=== PATIENT | female | born 1960 | race Caucasian/White ===

== ENCOUNTER 2016-12-18 18:55 | Emergency (ER) | payer OTHER, MEDICARE ==
[~2016-12-18 18:55] MED LIST: ASPIRIN81 M4 PO; ATIVAN1 M1 PO; ATORVASTATIN CA20 M1 PO; ATORVASTATIN CA40 M1 PO; CLONAZEPAM0.5 M2 PO; CLONAZEPAM1 M2 PO; ESCITALOPRAM OX20 MG PO; GABAPENTIN300 M2 PO; LOPRESSOR50 M1 PO; MELATONIN5 M7 PO; METOPROLOL TART25 M1 PO; ONE DAILY MULT1 EAC2 PO; QUETIAPINE FUMA50 M1 PO; SPIRIVA18 MCG INH; VITAMIN B-1100 MG PO; VITAMIN B-121000 MC3 PO
--- NOTE | 2016-12-18 19:17 | ED GENERAL ADULT ---
History of Present Illness General Chief Complaint: ETOH/Drug Related Complaint Stated Complaint: BIBA ETOH DETOX Source: patient, old records, EMS Exam Limitations: intoxication Vital Signs & Intake/Output Vital Signs & Intake/Output Vital Signs Date Time Temp Pulse Resp B/P Pulse O2 O2 Flow FiO2 Ox Delivery Rate 12/188 96.2 101 20 128/78 99 Nasal 2.0L Cannula 12/187 97 Nasal 3.0L Cannula 12/18 1903 94 20 89/53 96 Nasal 3.0L Cannula ED Intake and Output 12/19 0000 12/18 1200 Intake Total Output Total 600 Balance -600 Output, Urine 600 Allergies Coded Allergies: No Known Allergies (06/24/16) Reconcile Medications Aspirin (Aspirin*) 81 MG TAB.CHEW 1 TAB PO DAILY HEART HEALTH Atorvastatin Calcium 40 MG TABLET 1 TAB PO DAILY HYPERLIPIDEMIA Clonazepam 0.5 MG TABLET 1 TAB PO BID ANXIETY (Reported) Cyanocobalamin (Vitamin B-12) 1,000 MCG TABLET 1 TAB PO DAILY MULTIVITAMIN Escitalopram Oxalate 20 MG TABLET 1 TAB PO DAILY MENTAL HEALTH (Reported) Gabapentin 300 MG CAPSULE 2 CAP PO SEE ADMIN CRITERIA UNKNOWN (Reported) 600MG MORNING AND AT LUNCHTIME 900MG AT NIGHT Lorazepam (Ativan) 1 MG TABLET 0.5 TAB PO SEE ADMIN CRITERIA ALCOHOL WITHDRAWL TAKE 0.5 TABLET IN THE EVENING AND 0.5 TABLE AT NIGHT( 06/27/16) pLEASE TAKE 0.5 TABLET ON 06/28/60 THEN STOP Melatonin 5 MG TABLET 1 TAB PO AT BEDTIME INSOMNIA Metoprolol Tartrate (Lopressor) 50 MG TABLET 1 TAB PO BID BLOOD PRESSURE Multivitamin (One Daily Multivitamin) 1 EACH TABLET 1 TAB PO DAILY MULTIVITAMIN Thiamine HCl (Vitamin B-1) 100 MG TABLET 1 TAB PO DAILY VITAMIN SUPPLEMENT Tiotropium [place] (Spiriva) 18 MCG CAP.W.DEV 1 CAP INH DAILY BREATHING PROBLEMS (Reported) Triage Note: PT BIBA FOR ETOH DETOX. PER EMS, PT DRANK 6 NIPS OF VODKA TODAY. MED HX INCLUDES STAGE 4 LUNG CANCER WITH METS TO BRAIN. HX COPD. PT REPORTEDLY VOMITED ONCE PRIOR TO EMS ARRIVAL Triage Nurses Notes Reviewed? yes HPI: Patient daughter called 911 because the patient was intoxicated. Patient denies congestion. Vision that she drank alcohol. Patient denies wanting detox. Patient has known metastatic lung cancer to her brain and the patient states that her right to drink alcohol. Patient denies any suicidal or homicidal ideations. Past History Travel History Traveled to [place] past 21 day No Medical History Any Pertinent Medical History? 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 No Review of Systems Review of Systems Constitutional: Reports: no symptoms. EENTM: Reports: no symptoms. Respiratory: Reports: no symptoms. Cardiovascular: Reports: no symptoms. GI: Reports: no symptoms. Genitourinary: Reports: no symptoms. Musculoskeletal: Reports: no symptoms. Skin: Reports: no symptoms. Neurological/Psychological: Reports: no symptoms. Hematologic/Endocrine: Reports: no symptoms. Immunologic/Allergic: Reports: no symptoms. All Other Systems: Reviewed and Negative Physical Exam Physical Exam General Appearance: well developed/nourished, alert, awake, mild distress, intoxicated Head: atraumatic Eyes: Bilateral: PERRL, EOMI, other (SLUGGISH). Ears, Nose, Throat: normal pharynx, normal ENT inspection Neck: normal inspection, supple, full range of motion Respiratory: normal breath sounds, chest non-tender, no respiratory distress, lungs clear Cardiovascular: regular rate/rhythm, normal peripheral pulses Gastrointestinal: normal bowel sounds, soft, non-tender Back: normal inspection Extremities: normal inspection, normal capillary refill, normal range of motion, no edema Neurologic/Psych: no motor/sensory deficits, awake, alert Lymphatic: no anterior cervical nichol Core Measures ACS in differential dx? No CVA/TIA Diagnosis: No Severe Sepsis Present: No Septic Shock Present: No Progress Differential Diagnoses I considered the following diagnoses in my evaluation of the patient: [Alcohol intoxication] Plan of Care: Orders Procedure Date/time Status Regular Diet 12/19 B Active URINE DRUG SCREEN FOR ER ONLY 12/18 1913 Complete LIPASE 12/18 1913 Complete ETHANOL 12/18 1913 Complete COMPREHENSIVE METABOLIC PANEL 12/18 1913 Complete CBC WITHOUT DIFFERENTIAL 12/18 1913 Complete AMYLASE 12/18 1913 Complete Laboratory Tests 12/18/161954: Urine Opiates Screen < 100.00, Methadone Screen 53, Barbiturate Screen < 60, Ur Phencyclidine Scrn < 6.00, Amphetamines Screen < 100, U Benzodiazepines Scrn 124 , Urine Cocaine Screen < 50, Urine Cannabis Screen < 5.00 12/18/161914: Anion Gap 15, Estimated GFR > 60, BUN/Creatinine Ratio 35.7 H, Glucose 118 H, Calcium 8.9, Total Bilirubin 0.3, AST 24, ALT 29, Alkaline Phosphatase 108, Total Protein 6.4, Albumin 3.8, Globulin 2.6, Albumin/Globulin Ratio 1.5, Amylase 69, Lipase 105, CBC w Diff NO MAN DIFF REQ, RBC 4.49, MCV 83.7, MCH 27.4 , RDW 14.8 H, MPV 7.5, Gran % 58.6, Lymphocytes % 27.2, Monocytes % 8.9, Eosinophils % 4.5, Basophils % 0.8, Absolute Granulocytes 3.6, Absolute Lymphocytes 1.7, Absolute Monocytes 0.5, Absolute Eosinophils 0.3, Absolute Basophils 0, PUBS MCHC 32.7 L, Serum Alcohol 236.0 Initial ED EKG: none Hand-Off Endorsed To: IVETH AGUILAR MD Endorsed Time: 0700 Pending: other ([facility]) Departure Departure Disposition: HOME OR SELF CARE Condition: Stable Clinical Impression Primary Impression: Alcohol intoxication Referrals: PATIENT HAS NO PRIMARY CARE DR (PCP/Family) Additional Instructions: Return if you would like any help to stop drinking or as needed. Departure Forms: Customer Survey General Discharge Information Critical Care Note Critical Care Note Critical Care Time: non-applicable
[2016-12-18 19:24] LABS: ABSOLUTE BASOPHIL COUNT 0 /CUMM (0.0-0.2); ABSOLUTE EOSINOPHIL COUNT 0.3 /CUMM (0.0-0.7); ABSOLUTE GRANULOCYTE CT 3.6 /CUMM (1.4-6.5); ABSOLUTE LYMPH COUNT 1.7 /CUMM (1.2-3.4); ABSOLUTE MONOCYTE COUNT 0.5 /CUMM (0.10-0.60); BASOPHIL % 0.8 % (0.0-2.0); EOSINOPHIL % 4.5 % (0-5); GRANULOCYTE % 58.6 % (42.2-75.2); HEMATOCRIT 37.6 % (37-47); MEAN CORPUSCULAR HGB 27.4 PG (27.0-31.0); MEAN CORPUSCULAR HGB CONC 32.7 G/DL (33.0-37.0); MEAN CORPUSCULAR VOLUME 83.7 FL (81.0-99.0); MEAN PLATELET VOLUME 7.5 FL (7.4-10.4); PLATELET COUNT 250 /CUMM (130-400); RBC DISTRIBUTION WIDTH 14.8 % (11.5-14.5); RED BLOOD CELL CT 4.49 /CUMM (4.20-5.40); WHITE BLOOD CELL COUNT 6.2 /CUMM (4.8-10.8)
[2016-12-19 06:46] VITALS: BP 169/84
== END 2016-12-19 07:25 ==
LOC: ERH 18:55
PROVIDERS: Emergency Medicine
DX: F10.129 Alcohol abuse with intoxication, unspecified (principal)
CPT/HCPCS: 80307; 96361; 96374; G0480; J2405

== ENCOUNTER 2017-02-14 06:28 | Emergency (ER) | payer OTHER, MEDICARE ==
[~2017-02-14] VITALS: Ht 170.2 cm; Wt 74.8 kg
--- NOTE | 2017-02-14 06:31 | ED PSYCHIATRIC COMPLAINT ---
History of Present Illness General Chief Complaint: ETOH/Drug Related Complaint Stated Complaint: LEONOR PT REQUEST ETOH DETOX Source: patient, old records Exam Limitations: no limitations Vital Signs & Intake/Output Vital Signs & Intake/Output Vital Signs Date Time Temp Pulse Resp B/P Pulse O2 O2 Flow FiO2 Ox Delivery Rate 02/14 0847 97.2 88 18 95/68 94 02/14 0706 98.2 106 18 110/70 02/14 0653 98.2 106 20 110/70 97 Room Air 02/14 0636 100 Nasal 2.0L Cannula Allergies Coded Allergies: No Known Allergies (06/24/16) Reconcile Medications Aspirin (Aspirin*) 81 MG TAB.CHEW 1 TAB PO DAILY HEART HEALTH Atorvastatin Calcium 40 MG TABLET 1 TAB PO DAILY HYPERLIPIDEMIA Clonazepam 0.5 MG TABLET 1 TAB PO BID ANXIETY (Reported) Cyanocobalamin (Vitamin B-12) 1,000 MCG TABLET 1 TAB PO DAILY MULTIVITAMIN Escitalopram Oxalate 20 MG TABLET 1 TAB PO DAILY MENTAL HEALTH (Reported) Gabapentin 300 MG CAPSULE 2 CAP PO SEE ADMIN CRITERIA UNKNOWN (Reported) 600MG MORNING AND AT LUNCHTIME 900MG AT NIGHT Lorazepam (Ativan) 1 MG TABLET 0.5 TAB PO SEE ADMIN CRITERIA ALCOHOL WITHDRAWL TAKE 0.5 TABLET IN THE EVENING AND 0.5 TABLE AT NIGHT( 06/27/16) pLEASE TAKE 0.5 TABLET ON 06/28/60 THEN STOP Melatonin 5 MG TABLET 1 TAB PO AT BEDTIME INSOMNIA Metoprolol Tartrate (Lopressor) 50 MG TABLET 1 TAB PO BID BLOOD PRESSURE Multivitamin (One Daily Multivitamin) 1 EACH TABLET 1 TAB PO DAILY MULTIVITAMIN Thiamine HCl (Vitamin B-1) 100 MG TABLET 1 TAB PO DAILY VITAMIN SUPPLEMENT Tiotropium [place] (Spiriva) 18 MCG CAP.W.DEV 1 CAP INH DAILY BREATHING PROBLEMS (Reported) Triage Nurses Notes Reviewed? yes HPI: 56 year old female LEONOR from home requesting alcohol detox. She has a long history of alcohol abuse. She states currently she is drinking about 12-15 minutes per day. Around 6:00 in the morning she wakes up very anxious and waits for the package start open at 8:00. She states that she is a recovering patient from metastatic lung cancer to the brain. She is status post chemotherapy and radiation therapy currently cancer free. She states that she brought herself in for voluntary alcohol detox. Denies call withdrawal seizures or delirium tremens however she was admitted for a 4-5 day stay back in May of previous year. Denies any SI or HI. Denies any substance abuse. She is prescribed Klonopin 1 mg daily. (MEERA NAVARRO MD) Past History Medical History Any Pertinent Medical History? 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 No (MEERA NAVARRO MD) Review of Systems Review of Systems Constitutional: Denies: chills, fever. EENTM: Reports: no symptoms. Respiratory: Denies: cough. Cardiovascular: Denies: chest pain. GI: Denies: abdominal pain. Genitourinary: Reports: no symptoms. Musculoskeletal: Reports: no symptoms. Skin: Reports: no symptoms. Neurological/Psychological: Reports: anxiety, depressed. Hematologic/Endocrine: Denies: bruising, bleeding, polyuria, polydipsia. Immunologic/Allergic: Reports: no symptoms. All Other Systems: Reviewed and Negative (MEERA NAVARRO MD) Physical Exam Physical Exam General Appearance: well developed/nourished, mild distress Head: atraumatic Eyes: Bilateral: PERRL, EOMI. Ears, Nose, Throat: normal pharynx, normal ENT inspection, hearing grossly normal Neck: normal inspection, supple Respiratory: normal breath sounds Cardiovascular: regular rate/rhythm Gastrointestinal: soft, non-tender Extremities: normal range of motion Neurological/Psychiatric: awake, alert Appearance/Memory/Insight: appropriate appearance, neat Behavoir/Eye Contact/Speech: cooperative, normal speech, good eye contact Thoughts/Hallucinations: no apparent hallucination Skin: intact, normal color, warm/dry SAD PERSONS Done? patient not suicidal (MEERA NAVARRO MD) Progress Differential Diagnosis: ALCOHOL ABUSE, ALCOHOL WITHDRAWAL Plan of Care: Orders Procedure Date/time Status Add-on Test (ER Only) 02/14 0845 Active TROPONIN LEVEL 02/14 0722 Complete ETHANOL 02/14 0722 Complete CIWA 03/16 0642 Active URINALYSIS 02/14 642 Complete PARTIAL THROMBOPLASTIN TIME 02/14 642 Complete PROTHROMBIN TIME 02/14 642 Complete MAGNESIUM 02/14 642 Complete LIPASE 02/14 642 Complete COMPREHENSIVE METABOLIC PANEL 02/14 642 Complete CBC WITHOUT DIFFERENTIAL 02/14 642 Complete EKG 02/14 642 Active Laboratory Tests 02/14/17 0722: Anion Gap 10, Estimated GFR > 60, BUN/Creatinine Ratio 37.1 H, Glucose 94, Calcium 9.1, Magnesium 1.6, Total Bilirubin 0.6, AST 20, ALT 37, Alkaline Phosphatase 102, Troponin I < 0.01, Total Protein 6.6, Albumin 3.8, Globulin 2.8 , Albumin/Globulin Ratio 1.4, Lipase 43, PT 11.2, INR 1.07, APTT 38 H, CBC w Diff NO MAN DIFF REQ, RBC 4.54, MCV 83.9, MCH 27.4, RDW 14.6 H, MPV 7.3 L, Gran % 66.5, Lymphocytes % 20.4 L, Monocytes % 8.5, Eosinophils % 4.2, Basophils % 0.4, Absolute Granulocytes 2.8, Absolute Lymphocytes 0.9 L, Absolute Monocytes 0.4, Absolute Eosinophils 0.2, Absolute Basophils 0, PUBS MCHC 32.7 L, Serum Alcohol 48.0 02/14/17 0710: Troponin I Cancelled 02/14/17 06: Urinalysis LIGHT H, Urine Color YEL, Urine Clarity CLDY H, Urine pH 6.0, Ur Specific [place] >= 1.030, Urine Protein 30 H, Urine Ketones NEG, Urine Nitrite NEG, Urine Bilirubin NEG, Urine Urobilinogen 0.2, Ur Leukocyte Esterase SMALL H , Ur Microscopic SEDIMENT EXAMINED, Urine RBC 1-3, Urine WBC 1-3 H, Ur Epithelial Cells MANY H, Urine Bacteria MANY H, Urine Mucus RARE, Urine Hemoglobin TRACE-INTACT, Urine Glucose NEG Initial ED EKG: NSR, T WAVE INVERSIONS V2-V6 Prior EKG: unchanged Hand-Off Endorsed To: JOSE PANIAGUA,ALPHONSO Garcia Endorsed Time: 0700 Pending: labs, other (ciwa scores) (RAMON PANIAGUA,MEERA) Comments: 02/14/2017 9:29:52 AM I have updated Kavita on her test results. She will contact behavioral health regarding an outpatient alcohol detox program. At this point there seems to be no signs of significant alcohol withdrawal. (JOSE PANIAGUA,ALPHONSO Garcia) Departure Departure Condition: Stable Departure Forms: Customer Survey General Discharge Information (RAMON PANIAGUA,MEERA) Departure Disposition: HOME OR SELF CARE Clinical Impression Primary Impression: Alcohol dependence Qualifiers: Substance use status: unspecified alcohol-induced disorder Qualified Code: F10.29 - Alcohol dependence with unspecified alcohol-induced disorder Secondary Impressions: Acute electrocardiogram changes Referrals: [facility] PATIENT HAS NO PRIMARY CARE DR (PCP/Family) Additional Instructions: Follow-up with the [facility] regarding outpatient transition mgr rn detox program. If you do not already have a primary care physician contact the [facility] and arrange for a general medical evaluation as soon as possible. Return if any concerns or sudden worsening. Please note that there might be incidental findings in your evaluation that are unrelated to the current emergency department visit. Please notify your primary care doctor about this emergency department visit in order to obtain and review all of the testing performed so that these incidental findings can be monitored as needed. If you had an x-ray performed, please understand that some fractures may not be seen on the initial set of x-rays. If your symptoms persist you might need a repeat set of x-rays to check for such a fracture. If you had a laceration evaluated, please understand that foreign bodies such as glass or wood may not be visible to the naked eye or on plain x-rays. If the wound becomes red, swollen, increasingly more painful or if there is any drainage from the wound, please have it reevaluated by a physician for the possibility of a retained foreign body. Thank you for choosing the [facility] for your care. It was a pleasure to serve you today. Alphnoso Newton M.D. [facility] (JOSE PANIAGUA,ALPHONSO Garcia)
[2017-02-14 07:39] LABS: ABSOLUTE BASOPHIL COUNT 0 /CUMM (0.0-0.2); ABSOLUTE EOSINOPHIL COUNT 0.2 /CUMM (0.0-0.7); ABSOLUTE GRANULOCYTE CT 2.8 /CUMM (1.4-6.5); ABSOLUTE LYMPH COUNT 0.9 /CUMM (1.2-3.4); ABSOLUTE MONOCYTE COUNT 0.4 /CUMM (0.10-0.60); BASOPHIL % 0.4 % (0.0-2.0); EOSINOPHIL % 4.2 % (0-5); GRANULOCYTE % 66.5 % (42.2-75.2); HEMATOCRIT 38.1 % (37-47); MEAN CORPUSCULAR HGB 27.4 PG (27.0-31.0); MEAN CORPUSCULAR HGB CONC 32.7 G/DL (33.0-37.0); MEAN CORPUSCULAR VOLUME 83.9 FL (81.0-99.0); MEAN PLATELET VOLUME 7.3 FL (7.4-10.4); PLATELET COUNT 301 /CUMM (130-400); RBC DISTRIBUTION WIDTH 14.6 % (11.5-14.5); RED BLOOD CELL CT 4.54 /CUMM (4.20-5.40); WHITE BLOOD CELL COUNT 4.2 /CUMM (4.8-10.8)
[2017-02-14 08:42] LABS: PT 11.2 SEC (9.4-12.5); PTT 38 SEC (25-37)
[2017-02-14 10:04] VITALS: BP 104/85
== END 2017-02-14 10:04 ==
LOC: ERH 06:28
PROVIDERS: Emergency Medicine
DX: F10.20 Alcohol dependence, uncomplicated (principal); R94.31 Abnormal electrocardiogram [ECG] [EKG]; Z79.82 Long term (current) use of aspirin
CPT/HCPCS: 81001; 93005; 93010; G0480

== ENCOUNTER 2017-02-14 14:27 | Emergency (ER) | payer OTHER, MEDICARE ==
[~2017-02-14] VITALS: Ht 162.6 cm; Wt 65.8 kg
[2017-02-14 14:41] VITALS: BP 103/63
--- NOTE | 2017-02-14 16:05 | ED PSYCHIATRIC COMPLAINT ---
History of Present Illness General Chief Complaint: ETOH/Drug Related Complaint Stated Complaint: ETOH DETOX, DC'D THIS AM Source: patient Exam Limitations: no limitations Vital Signs & Intake/Output Vital Signs & Intake/Output Vital Signs Date Time Temp Pulse Resp B/P Pulse O2 O2 Flow FiO2 Ox Delivery Rate 02/14 1441 98.6 103 18 103/63 94 Room Air Allergies Coded Allergies: No Known Allergies (06/24/16) Reconcile Medications Aspirin (Aspirin*) 81 MG TAB.CHEW 1 TAB PO DAILY HEART HEALTH Atorvastatin Calcium 40 MG TABLET 1 TAB PO DAILY HYPERLIPIDEMIA Clonazepam 0.5 MG TABLET 1 TAB PO BID ANXIETY (Reported) Cyanocobalamin (Vitamin B-12) 1,000 MCG TABLET 1 TAB PO DAILY MULTIVITAMIN Escitalopram Oxalate 20 MG TABLET 1 TAB PO DAILY MENTAL HEALTH (Reported) Gabapentin 300 MG CAPSULE 2 CAP PO SEE ADMIN CRITERIA UNKNOWN (Reported) 600MG MORNING AND AT LUNCHTIME 900MG AT NIGHT Lorazepam (Ativan) 1 MG TABLET 0.5 TAB PO SEE ADMIN CRITERIA ALCOHOL WITHDRAWL TAKE 0.5 TABLET IN THE EVENING AND 0.5 TABLE AT NIGHT( 06/27/16) pLEASE TAKE 0.5 TABLET ON 06/28/60 THEN STOP Melatonin 5 MG TABLET 1 TAB PO AT BEDTIME INSOMNIA Metoprolol Tartrate (Lopressor) 50 MG TABLET 1 TAB PO BID BLOOD PRESSURE Multivitamin (One Daily Multivitamin) 1 EACH TABLET 1 TAB PO DAILY MULTIVITAMIN Thiamine HCl (Vitamin B-1) 100 MG TABLET 1 TAB PO DAILY VITAMIN SUPPLEMENT Tiotropium [place] (Spiriva) 18 MCG CAP.W.DEV 1 CAP INH DAILY BREATHING PROBLEMS (Reported) Triage Note: 56 YO FEMALE BIBA FROM HOME. PT WAS SEEN LAST NIGHT IN ER AND D/C THIS AM WITH INSTRUCTIONS SO FOLLOW UP WITH CARE. PT STATES "I WASNT HAPPY WITH THOSE INSTRUCTIONS SO I DECIDED TO DRINK SO YOU WOULD HAVE TO ADMIT ME" PT ADMITS TO DRINKING 7-8 NIPS OF VOKDA TODAY. SECURITY AT BEDSIDE FOR WANDING. PT CHANGED INTO HOSP SCRUBS. PT HAS 1 BELONING BAG. PT CALM AND COOPERATIVE. SITTER PRESENT. Triage Nurses Notes Reviewed? yes HPI: Patient presents for intoxication. The patient was just discharged from the emergency department earlier this morning. She was to follow up with the [facility] regarding alcohol dependence. She states she called them and was provided numbers of detox programs but none head bed availability. She began Drinking again because she was feeling shaky and jittery. Outside of intoxication the patient has no specific complaint at this time. Past History Travel History Traveled to [place] past 21 day No Medical History Any Pertinent Medical History? 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 No Review of Systems Review of Systems Constitutional: Reports: no symptoms. EENTM: Reports: no symptoms. Respiratory: Reports: no symptoms. Cardiovascular: Reports: no symptoms. GI: Reports: no symptoms. Genitourinary: Reports: no symptoms. Musculoskeletal: Reports: no symptoms. Skin: Reports: no symptoms. Neurological/Psychological: Reports: no symptoms, other (ALCOHOL INTOXICATION). Hematologic/Endocrine: Reports: no symptoms. Immunologic/Allergic: Reports: no symptoms. All Other Systems: Reviewed and Negative Physical Exam Physical Exam General Appearance: SEE BELOW Neurological/Psychiatric: SEE BELOW Comments: Gen.: Well-nourished, well-developed, no acute respiratory distress. Mild EtOH- like odor Head: Normocephalic, atraumatic. Eyes: Normal inspection bilaterally Ears: Normal inspection bilaterally Nose: Normal inspection Throat/mouth : Moist mucosa Neck: Supple, full range of motion, no goiter Heart: Regular rate and rhythm, no murmurs rubs or gallops Lungs: Clear to auscultation bilaterally with normal air entry Chest: Nontender Back: Normal range of motion Abdomen: Soft, nontender, nondistended, normal bowel sounds Extremities: Normal range of motion grossly, equal radial pulses, no cyanosis clubbing or edema Neurologic: Cranial nerves grossly intact, speech is mildly slurred but otherwise appropriate, patient is conversant Skin: warm and dry Psychiatric: Calm, cooperative, no apparent delusions or hallucinations SAD PERSONS Done? patient not suicidal Progress Differential Diagnosis: ALCOHOL INTOXICATION Plan of Care: Outpatient detox program Comments: I have explained that hospitals detox protocol and I offered to observe Kavita in the emergency department and reassess. If she were to meet criterion once she was sober then we could offer her inpatient detox. Kavita now wishes to return home and is attempting to call for a ride. She is mildly intoxicated clinically but appears to be in no active withdrawal. She is also capable of medical decision making in my opinion. Kavita has arranged for a ride home with a friend who she states can look after her over the next few hours. Departure Departure Disposition: HOME OR SELF CARE Condition: Stable Clinical Impression Primary Impression: Alcohol intoxication Qualifiers: Complication of substance-induced condition: uncomplicated Qualified Code: F10.120 - Alcohol abuse with intoxication, uncomplicated Secondary Impressions: Alcohol dependence Qualifiers: Substance use status: uncomplicated Qualified Code: F10.20 - Alcohol dependence, uncomplicated Referrals: [facility] PATIENT HAS NO PRIMARY CARE DR (PCP/Family) Additional Instructions: Slowly wean your alcohol use. Seek a detox program as soon as possible. If he do not currently have a primary care physician then contacted [facility] and arrange for a general medical evaluation as soon as possible. Return if any sudden worsening. Departure Forms: Customer Survey DETOX FACILITIES LIST General Discharge Information
== END 2017-02-14 17:02 ==
LOC: ERH 14:27
DX: F10.20 Alcohol dependence, uncomplicated (principal)

== ENCOUNTER 2017-03-05 20:21 | Emergency (ER) | payer OTHER, MEDICARE ==
--- NOTE | 2017-03-05 20:54 | ED PSYCHIATRIC COMPLAINT ---
History of Present Illness General Chief Complaint: ETOH/Drug Related Complaint Stated Complaint: +ETOH Source: patient, old records, EMS Exam Limitations: intoxication Allergies Coded Allergies: No Known Allergies (06/24/16) Reconcile Medications Aspirin (Aspirin*) 81 MG TAB.CHEW 1 TAB PO DAILY HEART HEALTH Atorvastatin Calcium 40 MG TABLET 1 TAB PO DAILY HYPERLIPIDEMIA Chlordiazepoxide HCl 25 MG CAPSULE 0 PO SEE ADMIN CRITERIA PRN alcohol detox 1-2 tabs 3 times a day for 2 days 1-2 tabs 2 times a day for 2 days 1-2 tabs 1 time a day for 2 days Clonazepam 0.5 MG TABLET 1 TAB PO BID ANXIETY (Reported) Cyanocobalamin (Vitamin B-12) 1,000 MCG TABLET 1 TAB PO DAILY MULTIVITAMIN Escitalopram Oxalate 20 MG TABLET 1 TAB PO DAILY MENTAL HEALTH (Reported) Gabapentin 300 MG CAPSULE 2 CAP PO SEE ADMIN CRITERIA UNKNOWN (Reported) 600MG MORNING AND AT LUNCHTIME 900MG AT NIGHT Lorazepam (Ativan) 1 MG TABLET 0.5 TAB PO SEE ADMIN CRITERIA ALCOHOL WITHDRAWL TAKE 0.5 TABLET IN THE EVENING AND 0.5 TABLE AT NIGHT( 06/27/16) pLEASE TAKE 0.5 TABLET ON 06/28/60 THEN STOP Melatonin 5 MG TABLET 1 TAB PO AT BEDTIME INSOMNIA Metoprolol Tartrate (Lopressor) 50 MG TABLET 1 TAB PO BID BLOOD PRESSURE Multivitamin (One Daily Multivitamin) 1 EACH TABLET 1 TAB PO DAILY MULTIVITAMIN Thiamine HCl (Vitamin B-1) 100 MG TABLET 1 TAB PO DAILY VITAMIN SUPPLEMENT Tiotropium Sunset (Spiriva) 18 MCG CAP.W.DEV 1 CAP INH DAILY BREATHING PROBLEMS (Reported) Triage Note: PT BIBA FOR +SI AND ETOH. PT REPORTS BEING AT [facility] EARLIER TODAY AND DISCHARGED, THEN DRANK MORE AT HOME. PT DENIES ANY OTHER SUBSTANCE INGESTION. PT REPORTS +SI WITH PLAN TO DRINK SELF TO . PT DENIES HI. Triage Nurses Notes Reviewed? yes HPI: 56-year-old female presents via EMS from home for chief complaint of alcohol intoxication feeling suicidal. She states she was drinking all day today and her daughter called the ankles. Patient admits to being sick and tired of drinking and feeling depressed and suicidal. No specific plan to hurt herself. Has no thoughts of hurting anybody else. She states she just got out of detox at [facility] 2 weeks ago. She was there for 5 days. Patient states she gets shaky when she withdraws but has never had DTs or withdrawal seizures. Denies any substance abuse. (MEERA NAVARRO MD) Vital Signs & Intake/Output Vital Signs & Intake/Output Vital Signs Date Time Temp Pulse Resp B/P Pulse O2 O2 Flow FiO2 Ox Delivery Rate 03/06 1020 98 18 155/91 04/05 1005 98.3 98 18 155/91 98 Room Air / 0753 97.1 96 18 161/96 04/ 0733 97.1 96 18 161/96 99 04/05 0651 Room Air / 0553 116 18 158/80 04/ 0550 97.2 116 20 158/80 04/ 0406 97.1 102 20 152/100 04/ 0402 97.1 102 20 152/100 96 Room Air / 0154 96.6 108 20 142/95 03/05 2246 97.6 132 16 166/100 93 Room Air 03/05 2136 Room Air 03/05 2048 97.9 111 20 151/94 93 Room Air LMP (ages 10-50): post menopausal : No Patient currently breastfeeds: No (IVETH AGUILAR MD) Past History Travel History Traveled to [place] past 21 day No Medical History Any Pertinent Medical History? 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 No (MEERA NAVARRO MD) Review of Systems Review of Systems Constitutional: Denies: chills, fever. EENTM: Reports: no symptoms. Respiratory: Denies: hemoptysis, short of breath, sputum production. Cardiovascular: Denies: chest pain. GI: Denies: nausea, vomiting. Genitourinary: Reports: no symptoms. Musculoskeletal: Reports: no symptoms. Skin: Reports: no symptoms. Neurological/Psychological: Reports: anxiety, depressed, headache, tremors. Hematologic/Endocrine: Denies: bruising, bleeding. Immunologic/Allergic: Reports: no symptoms. All Other Systems: Reviewed and Negative (MEERA NAVARRO MD) Physical Exam Physical Exam General Appearance: alert, awake, mild distress, thin Head: atraumatic Eyes: Bilateral: PERRL, EOMI. Ears, Nose, Throat: normal pharynx, normal ENT inspection, hearing grossly normal Neck: normal inspection, supple Respiratory: normal breath sounds Cardiovascular: regular rate/rhythm Gastrointestinal: soft, non-tender Extremities: normal range of motion Neurological/Psychiatric: awake, alert, calm, academic affairs manager II-XII nml as tested Appearance/Memory/Insight: disheveled, impaired insight Behavoir/Eye Contact/Speech: cooperative, normal speech, good eye contact Thoughts/Hallucinations: no apparent hallucination Skin: intact, normal color, warm/dry SAD PERSONS SAD PERSONS Response Value Age <19 or >45 years? yes 1 Depression/Hopelessness? yes 2 Excessive Ethanol/Drug Use? yes 1 Rational Thinking Loss? yes 2 Single//? yes 1 Social Support? has support 0 Stated Future Intent? yes 2 Total 9 SAD PERSONS Done? yes (MEERA NAVARRO MD) Progress Differential Diagnosis: ALCOHOL DEPENDENCE, ALCOHOL WITHDRAWAL, SUICIDAL, DEPRESSED Hand-Off Endorsed To: IVETH AGUILAR MD Endorsed Time: 0700 Pending: consult (CRISIS) (MEERA NAVARRO MD) Plan of Care: Orders Procedure Date/time Status Regular Diet 03/06 B Active Continuous Observation Monitor 03/06 1900 Active Continuous Observation Monitor 03/06 1500 Active Continuous Observation Monitor 03/06 1100 Active Continuous Observation Monitor 03/06 0700 Active Continuous Observation Monitor 03/05 2108 Active URINE DRUGS OF ABUSE 03/05 2108 Complete ETHANOL 03/05 2108 Complete COMPREHENSIVE METABOLIC PANEL 03/05 2108 Complete CBC WITHOUT DIFFERENTIAL 03/05 2108 Complete Current Medications Sig/John Start time Last Medication Dose Stop Time Status Admin Gabapentin 600 MG ONCE ONE 03/06 0800 CAN (Neurontin) 03/06 08 Laboratory Tests 03/05/173: Anion Gap 15, Estimated GFR > 60, BUN/Creatinine Ratio 28.3 H, Glucose 111 H, Calcium 9.4, Total Bilirubin 0.5, AST 34, ALT 49, Alkaline Phosphatase 114, Total Protein 7.6, Albumin 4.6, Globulin 3.0, Albumin/Globulin Ratio 1.5, CBC w Diff NO MAN DIFF REQ, RBC 4.90, MCV 84.0, MCH 27.1, RDW 16.2 H, MPV 7.1 L, Gran % 72.3, Lymphocytes % 17.8 L, Monocytes % 6.2, Eosinophils % 3.1, Basophils % 0.6, Absolute Granulocytes 4.0, Absolute Lymphocytes 1.0 L, Absolute Monocytes 0.3, Absolute Eosinophils 0.2, Absolute Basophils 0, PUBS MCHC 32.2 L, Serum Alcohol 209.0 03/05/175: Urine Opiates Screen < 100.00, Methadone Screen 47, Barbiturate Screen < 60, Ur Phencyclidine Scrn < 6.00, Amphetamines Screen < 100, U Benzodiazepines Scrn > 800 H, Urine Cocaine Screen < 50, Urine Cannabis Screen < 5.[address] this patient on CIWA protocols. Crisis consultation once sober in the morning. 4:10 AM Patient demanding more ativan, stating she needs it. Last CIWA is 4. Hospital detox admission policy again explained to her. I informed her that from a medical standpoint at this time she does not merit admission to the hospital for alcohol withdrawal. She is however suicidal and will be evaluated by crisis in the AM. She states that although ativan will blunt her withdrawal symptoms she would rather have it anyways and just wait for crisis. (MEERA NAVARRO MD) Comments: Cleared by crisis no longer suicidal. (IVETH AGUILAR MD) Departure Departure Condition: Stable Clinical Impression Primary Impression: Alcohol dependence Secondary Impressions: Suicidal ideation Prescriptions: Current Visit Scripts Chlordiazepoxide HCl 0 PO SEE ADMIN CRITERIA PRN alcohol detox #24 CAP 1-2 tabs 3 times a day for 2 days 1-2 tabs 2 times a day for 2 days 1-2 tabs 1 time a day for 2 days (MEERA NAVARRO MD) Departure Time of Disposition: 1028 Disposition: HOME OR SELF CARE Referrals: PATIENT HAS NO PRIMARY CARE DR (PCP/Family) Additional Instructions: Follow up with the recommendations of the pull worker. Departure Forms: DETOX FACILITIES LIST General Discharge Information (IVETH AGUILAR MD)
[2017-03-05 21:39] LABS: ABSOLUTE BASOPHIL COUNT 0 /CUMM (0.0-0.2); ABSOLUTE EOSINOPHIL COUNT 0.2 /CUMM (0.0-0.7); ABSOLUTE MONOCYTE COUNT 0.3 /CUMM (0.10-0.60); BASOPHIL % 0.6 % (0.0-2.0); EOSINOPHIL % 3.1 % (0-5); GRANULOCYTE % 72.3 % (42.2-75.2); HEMATOCRIT 41.2 % (37-47); MEAN CORPUSCULAR HGB 27.1 PG (27.0-31.0); MEAN CORPUSCULAR HGB CONC 32.2 G/DL (33.0-37.0); MEAN PLATELET VOLUME 7.1 FL (7.4-10.4); PLATELET COUNT 285 /CUMM (130-400); RBC DISTRIBUTION WIDTH 16.2 % (11.5-14.5); WHITE BLOOD CELL COUNT 5.5 /CUMM (4.8-10.8)
[2017-03-06 10:20] VITALS: BP 155/91
[2017-03-06] MEDS ORDERED: CHLORDIAZEPOXID25 M3 PO (10:33)
== END 2017-03-06 12:12 ==
LOC: ERH 20:21
PROVIDERS: Emergency Medicine
DX: F10.20 Alcohol dependence, uncomplicated (principal); R45.851 Suicidal ideations
CPT/HCPCS: 80307; 96372; G0480; J3101

== ENCOUNTER 2018-02-26 17:12 | Inpatient (IN) | payer OTHER, MEDICARE ==
[~2018-02-26] VITALS: Ht 162.6 cm; Wt 71.8 kg
[~2018-02-26 17:12] MED LIST changes: +CHLORDIAZEPOXID25 M3 PO
[2018-02-26 18:00] VITALS: BP 118/87
--- NOTE | 2018-02-26 18:28 | ED PSYCHIATRIC COMPLAINT ---
History of Present Illness General Chief Complaint: ETOH/Drug Related Complaint Stated Complaint: ETOH COMPLAINT, REQUESTING TREATMENT/HELP Source: patient Exam Limitations: clinical condition Vital Signs & Intake/Output Vital Signs & Intake/Output Vital Signs Date Time Temp Pulse Resp B/P B/P Pulse O2 O2 Flow FiO2 Mean Ox Delivery Rate 02/27 829 98.7 127 18 100/56 02/27 0829 98.7 127 18 100/56 95 Room Air 02/27 0615 98.5 116 18 111/55 02/27 0611 98.2 116 18 111/55 97 Room Air 02/27 0209 132 16 95/67 96 Room Air Room Air 02/27 0202 98.0 132 16 95/67 02/26 2353 98.4 140 16 145/91 96 Room Air 02/26 2351 98.6 140 16 145/91 02/26 2231 98.0 138 20 92/57 94 Room Air 02/26 2200 98.0 138 18 92/57 02/26 2024 97.1 126 18 152/90 100 Room Air 02/26 2000 97.1 126 18 152/90 02/26 1800 99.9 133 18 118/87 02/26 1755 99.9 133 18 118/87 95 Room Air ED Intake and Output 02/27 0000 02/26 1200 Intake Total 1000 Output Total Balance 1000 Intake, IV 1000 Patient 150 lb Weight Weight Estimated Measurement Method Allergies Coded Allergies: No Known Allergies (06/24/16) Triage Note: RECEIVED 57 YO FEMALE WITH HX OF ETOH ABUSE, CLEAN FOR 9 MONTHS, PT BEEN DRINKING AGAIN FOR 2 DAYS, DRANK PRIOR TO TRIAGE. PT WITH HX OF WITHDRAWL SEIZURES, STAGE 4 BREAST CA WITH METS TO THE BRAIN. PT WITH S.I. WITH NO SPECIFIC PLAN Triage Nurses Notes Reviewed? yes Onset: Abrupt Duration: day(s): (3) Timing: recent history Severity: moderate, severe Associated Symptoms: anxiety HPI: This is a 57 year old female with history of metastatic lung cancer to the brain currently in remission who presents to the ER for chief complaint of alcohol abuse x 3 days. She reports feeling nauseated, having vomited x 3 today, brown fluids. She reports abdominal pain. History of previous alcohol abuse although she was sober for 9 months. She admits that started to drink on Saturday. He is unclear how much she drinks in the last few days although she drank 6 units earlier prior to arrival. She denies any anuel blood in her vomit. She denies any blood in her stool. No history of presenting or otitis PG states that she just wants help because she notes she never will be able to stop drinking on her own. Patient arrives with a friend and her AA sponsor. (Jennyfer Godinez MD) Reconcile Medications Aspirin (Aspirin*) 81 MG TAB.CHEW 1 TAB PO DAILY HEART HEALTH Atorvastatin Calcium (Lipitor) 40 MG TABLET 1 TAB PO DAILY CHOLESTEROL ( Reported) Escitalopram Oxalate 20 MG TABLET 1 TAB PO DAILY MENTAL HEALTH (Reported) Fluticasone/Salmeterol (Advair 250-50 Diskus) 250 MCG-50 MCG/DOSE BLST.W.DEV 1 PUF INH BID COPD (Reported) Gabapentin 600 MG TABLET 2 TAB PO BID ANXIETY (Reported) Metoprolol Tartrate 25 MG TABLET 1 TAB PO DAILY HEART/BP (Reported) Quetiapine Fumarate (Seroquel) 100 MG TABLET 2 TAB PO TID MENTAL HEALTH ( Reported) Quetiapine Fumarate (Seroquel) 200 MG TABLET 1 TAB PO QHS MENTAL HEALTH ( Reported) Tiotropium [place] (Spiriva) 18 MCG CAP.W.DEV 1 CAP INH DAILY COPD (Reported) (Eugene Garcia MD) Past History Travel History Traveled to [place] past 21 day No Medical History Any Pertinent Medical History? 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 No (Jennyfer Godinez MD) Review of Systems Review of Systems Constitutional: Denies: chills, fever. EENTM: Reports: no symptoms. Respiratory: Denies: cough, short of breath. Cardiovascular: Denies: chest pain. GI: Reports: abdominal pain, nausea, vomiting. Genitourinary: Reports: no symptoms. Musculoskeletal: Reports: no symptoms. Skin: Reports: no symptoms. Neurological/Psychological: Reports: no symptoms. Hematologic/Endocrine: Denies: bruising, bleeding, polyuria, polydipsia. Immunologic/Allergic: Denies: splenectomy. All Other Systems: Reviewed and Negative (Jennyfer Godinez MD) Physical Exam Physical Exam General Appearance: well developed/nourished, mild distress Head: atraumatic Eyes: Bilateral: PERRL, EOMI. Ears, Nose, Throat: normal pharynx, normal ENT inspection, hearing grossly normal Neck: normal inspection, supple Respiratory: normal breath sounds Cardiovascular: regular rate/rhythm Gastrointestinal: soft, non-tender Extremities: normal range of motion Neurological/Psychiatric: no motor/sensory deficits, awake, agitated, alert Appearance/Memory/Insight: disheveled, impaired insight Behavoir/Eye Contact/Speech: normal speech Thoughts/Hallucinations: no apparent hallucination Skin: intact, normal color, warm/dry SAD PERSONS Done? patient not suicidal (Jennyfer Godinez MD) Progress Differential Diagnosis: ALCOHOL ABUSE, ALCOHOL WITHDRAWAL Plan of Care: Orders Procedure Date/time Status Regular Diet 02/27 B Active ED Holding Orders 02/27 0955 Active Admit to inpatient 02/27 0955 Active Vital Signs 02/27 0955 Active Code Status 02/27 0955 Active Continuous Observation Monitor 02/27 0700 Active Continuous Observation Monitor 02/27 0300 Active Continuous Observation Monitor 02/26 2300 Active Continuous Observation Monitor 02/26 1900 Active CIWA 02/26 1835 Active Telemetry/Fire Investigation Lieutenant 02/26 1833 Active TROPONIN LEVEL 02/26 1817 Complete EKG 02/26 1756 Active Continuous Observation Monitor 02/26 1754 Active URINE DRUG SCREEN FOR ER ONLY 02/26 1754 Complete URINALYSIS 02/26 1754 Complete MAGNESIUM 02/26 1754 Complete ETHANOL 02/26 1754 Complete COMPREHENSIVE METABOLIC PANEL 02/26 1754 Complete CBC WITHOUT DIFFERENTIAL 02/26 1754 Complete ED CRISIS PSYCH CONSULT 02/26 1754 Active Current Medications Sig/John Start time Last Medication Dose Stop Time Status Admin Aspirin 81 MG DAILY 02/27 1000 UNVr (Aspirin) Atorvastatin Calcium 40 MG DAILY 02/27 1000 UNVr (Lipitor) Escitalopram Oxalate 20 MG DAILY 02/27 1000 UNVr (Lexapro) Metoprolol Tartrate 25 MG DAILY 02/27 1000 UNVr (Lopressor) Tiotropium [place] 1 PUF DAILY 02/27 1000 AC (Spiriva) Budesonide/ 2 PUF BID 02/26 2200 AC 02/26 Formoterol Fumarate 2218 (Symbicort) Quetiapine Fumarate 200 MG TID 02/26 2200 UNVr 02/26 (Seroquel) 221 Laboratory Tests 02/26/182026: Urine Opiates Screen < 100, Methadone Screen 48, Barbiturate Screen < 60, Ur Phencyclidine Scrn < 6.00, Amphetamines Screen 247, U Benzodiazepines Scrn < 85, Urine Cocaine Screen < 50, Urine Cannabis Screen < 5.00, Urine Color YEL, Urine Clarity CLEAR, Urine pH 6.0, Ur Specific [place] >= 1.030, Urine Protein 100 H, Urine Ketones >=80, Urine Nitrite NEG, Urine Bilirubin NEG, Urine Urobilinogen 0.2, Ur Leukocyte Esterase NEG, Ur Microscopic SEDIMENT EXAMINED, Urine RBC FEW H, Ur Epithelial Cells RARE, Urine Hemoglobin SMALL H, Urine Glucose NEG 02/26/181816: Anion Gap 21 H, Estimated GFR > 60, BUN/Creatinine Ratio 27.1 H, Glucose 119 H, Calcium 9.6, Magnesium 1.8, Total Bilirubin 0.9, AST 37 H, ALT 33, Alkaline Phosphatase 89, Troponin I < 0.01, Total Protein 8.0, Albumin 4.7, Globulin 3.3, Albumin/Globulin Ratio 1.4, CBC w Diff NO MAN DIFF REQ, RBC 5.65 H, MCV 80.5 L , MCH 25.6 L, MCHC 31.9 L, RDW 17.1 H, MPV 7.6, Gran % 79.9 H, Lymphocytes % 12.1 L, Monocytes % 7.7, Eosinophils % 0, Basophils % 0.3, Absolute Granulocytes 9.2 H, Absolute Lymphocytes 1.4, Absolute Monocytes 0.9 H, Absolute Eosinophils 0, Absolute Basophils 0, Serum Alcohol 161.0 02/26/18 1756: Troponin I Cancelled Initial ED EKG: SINUS TACHYCARDIA Rhythm Strip: sinus tachycardia Hand-Off Endorsed To: Eugene Garcia MD Endorsed Time: 1899 Pending: labs (Herbert PANIAGUA,Jennyfer) Hand-Off Endorsed To: Arnaldo Rosenthal MD Endorsed Time: 712 Pending: consult, other (CIWA, crisis) (Eugene Garcia MD) Departure Departure Disposition: STILL A PATIENT Referrals: Mariana Majano MD (PCP/Family) Departure Forms: Customer Survey General Discharge Information (Herbert PANIAGUA,Jennyfer) Departure Condition: Stable Clinical Impression Primary Impression: Alcohol intoxication Secondary Impressions: Suicidal ideation (Jose PANIAGUA,Eugene) Admission Note Spoke With: Wandy Monge MD Documentation of Exam: Documentation of any treatments & extenuating circumstances including Concerns Regarding Discharge (functional status, medication knowledge or non-compliance, living conditions, etc.) that warrant an admission rather than observation: [ TELE MONITORING, CARDIOLOGY CONSULT, PSYCH CONSULT,ATIVAN PER [facility]] (Ariadna PANIAGUA,Arnaldo Davalos)
[2018-02-26 18:32] LABS: ABSOLUTE BASOPHIL COUNT 0 /CUMM (0.0-0.2); ABSOLUTE EOSINOPHIL COUNT 0 /CUMM (0.0-0.7); ABSOLUTE GRANULOCYTE CT 9.2 /CUMM (1.4-6.5); ABSOLUTE LYMPH COUNT 1.4 /CUMM (1.2-3.4); ABSOLUTE MONOCYTE COUNT 0.9 /CUMM (0.10-0.60); BASOPHIL % 0.3 % (0.0-2.0); EOSINOPHIL % 0 % (0-5); GRANULOCYTE % 79.9 % (42.2-75.2); HEMATOCRIT 45.4 % (37-47); MEAN CORPUSCULAR HGB 25.6 PG (27.0-31.0); MEAN CORPUSCULAR HGB CONC 31.9 G/DL (33.0-37.0); MEAN CORPUSCULAR VOLUME 80.5 FL (81.0-99.0); MEAN PLATELET VOLUME 7.6 FL (7.4-10.4); PLATELET COUNT 417 /CUMM (130-400); RBC DISTRIBUTION WIDTH 17.1 % (11.5-14.5); RED BLOOD CELL CT 5.65 /CUMM (4.20-5.40); WHITE BLOOD CELL COUNT 11.5 /CUMM (4.8-10.8)
[2018-02-26] MEDS ORDERED: GABAPENTIN600 M1 PO (19:12)
[2018-02-26] MEDS ORDERED: SEROQUEL200 M1 PO (19:13)
[2018-02-26] MEDS ORDERED: SEROQUEL100 M1 PO (19:13)
[2018-02-26] MEDS ORDERED: LIPITOR40 M1 PO (19:14)
[2018-02-26] MEDS ORDERED: METOPROLOL TART25 M1 PO (19:14)
[2018-02-26] MEDS ORDERED: SPIRIVA18 MCG INH (19:18)
[2018-02-26] MEDS ORDERED: ADVAIR 250-501 EACH INH (19:18)
[2018-02-26 20:00] VITALS: BP 152/90
[2018-02-26 22:00] VITALS: BP 92/57
[2018-02-26 23:51] VITALS: BP 145/91
[2018-02-27] VITALS (10 sets, daily range): BP systolic 88–122; BP diastolic 40–80
--- NOTE | 2018-02-27 11:03 | History & Physical ---
[facility] 1102: General Information and HPI MD Statement: I have seen and personally examined TRAN PENALOZA and documented this H&P. The patient is a 57 year old F who presented with a patient stated chief complaint of [requesting alcohol detox]. Source of Information: patient, old records Exam Limitations: no limitations History of Present Illness: Ms. Penaloza is a 57-year-old lady with past medical history of alcohol abuse with multiple detox, history of anxiety/depression, emphysema not on home oxygen , metastatic lung cancer to the brain status post craniotomy and chemotherapy at 2013 currently on remission, history of MD, stage I diastolic dysfunction, presented to emergency department requesting alcohol detox. Patient reports that her last alcohol detox was at 2015 at our hospital after her discharge she starts drinking again on and off, before this admission she remains sober for about 6 months and she started drinking last Saturday because of family issues, and lots of stress lately, she drank 7 pints of vodka every day, at our ED she was having suicidal thoughts hence one-to-one sitter was ordered, when I ask her about her plan she stat that I'm going to hurt myself in term of going back to drinking, she didn't have any other plan, she lives at home with her daughter. Sitter was at bedside. She was noted to have tachycardia, hypotensive (She received a total of 5L of NS ) at our emergency department, she mentioned that she usually have fast heart rate but never up to 140 , patient denies any chest pain, or shortness of breath , she mentioned that she feels her heart racing here and there since she came to our ED. She denies any fever, chills, headache, vision changes, abdominal pain, hallucination and there is no change in urinary or bowel habits. Her digital production artist is Dr. Rowell, last time she was transferred to [facility] for cardiac catheterization but patient stated that she never went there, last echo was at September 2017 showed stage I diastolic dysfunction, ejection fraction 60%. Allergies/Medications Allergies: Coded Allergies: No Known Allergies (06/24/16) Home Med list Aspirin (Aspirin*) 81 MG TAB.CHEW 1 TAB PO DAILY HEART HEALTH Atorvastatin Calcium (Lipitor) 40 MG TABLET 1 TAB PO DAILY CHOLESTEROL ( Reported) Escitalopram Oxalate 20 MG TABLET 1 TAB PO DAILY MENTAL HEALTH (Reported) Fluticasone/Salmeterol (Advair 250-50 Diskus) 250 MCG-50 MCG/DOSE BLST.W.DEV 1 PUF INH BID COPD (Reported) Gabapentin 600 MG TABLET 2 TAB PO BID ANXIETY (Reported) Metoprolol Tartrate 25 MG TABLET 1 TAB PO DAILY HEART/BP (Reported) Quetiapine Fumarate (Seroquel) 100 MG TABLET 2 TAB PO TID MENTAL HEALTH ( Reported) Quetiapine Fumarate (Seroquel) 200 MG TABLET 1 TAB PO QHS MENTAL HEALTH ( Reported) Tiotropium [place] (Spiriva) 18 MCG CAP.W.DEV 1 CAP INH DAILY COPD (Reported) Past History Travel History Traveled to [place] past 21 day No Medical History Neurological: NONE EENT: NONE Cardiovascular: CAD Respiratory: COPD, LUNG CANCER Gastrointestinal: NONE Hepatic: NONE Renal: NONE Musculoskeletal: NONE Psychiatric: alcohol dependence Endocrine: NONE Blood Disorders: NONE 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, 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 EENTM: Reports: no symptoms. Cardiovascular: Reports: palpitations. Respiratory: Reports: no symptoms. GI: Reports: no symptoms. Genitourinary: Reports: no symptoms. Musculoskeletal: Reports: no symptoms. Skin: Reports: no symptoms. Neurological/Psychological: Reports: no symptoms. Hematologic/Endocrine: Reports: no symptoms. All Other Systems: Reviewed and Negative Exam & Diagnostic Data Last 24 Hrs of Vital Signs/I&O Vital Signs Date Time Temp Pulse Resp B/P B/P Pulse O2 O2 Flow FiO2 Mean Ox Delivery Rate 02/27 1203 98.7 103 18 99 02/27 1019 98.6 123 18 98/56 02/27 1019 98.6 123 18 98/56 98 Room Air 02/27 0829 98.7 127 18 100/56 02/27 0829 98.7 127 18 100/56 95 Room Air 02/27 0615 98.5 116 18 111/55 02/27 0611 98.2 116 18 111/55 97 Room Air 02/27 0209 132 16 95/67 96 Room Air Room Air 02/27 0202 98.0 132 16 95/67 02/26 2353 98.4 140 16 145/91 96 Room Air 02/26 2351 98.6 140 16 145/91 02/26 2231 98.0 138 20 92/57 94 Room Air 02/26 2200 98.0 138 18 92/57 02/27 2024 97.1 126 18 152/90 100 Room Air 02/27 2000 97.1 126 18 152/90 02/26 1800 99.9 133 18 118/87 02/26 1755 99.9 133 18 118/87 95 Room Air Intake & Output 02/27 1600 02/27 0800 02/27 0000 Intake Total 1999 1000 Output Total Balance 1999 1000 Intake, IV 1999 1000 Patient 150 lb Weight Weight Estimated Measurement Method Physical Exam General Appearance Alert, Oriented X3, Cooperative, No Acute Distress Skin No Rashes, No Breakdown, No Significant Lesion Skin Temp/Moisture Exam: Warm/Dry Neck Supple, No JVD Cardiovascular Regular Rate, Normal S1, Normal S2, No Murmurs Lungs Clear to Auscultation, Normal Air Movement Abdomen Normal Bowel Sounds, Soft, No Tenderness Neurological Normal Speech, Strength at 5/5 X4 Ext, Normal Tone, Sensation Intact Extremities No Edema, Normal Pulses Vascular Normal Pulses, Pulses Symmetrical Last 24 Hrs of Labs/Bhavin: Laboratory Tests 02/27/18 1157: Troponin I Pending 02/26/182026: Urine Opiates Screen < 100, Methadone Screen 48, Barbiturate Screen < 60, Ur Phencyclidine Scrn < 6.00, Amphetamines Screen 247, U Benzodiazepines Scrn < 85, Urine Cocaine Screen < 50, Urine Cannabis Screen < 5.00, Urine Color YEL, Urine Clarity CLEAR, Urine pH 6.0, Ur Specific Bern >= 1.030, Urine Protein 100 H, Urine Ketones >=80, Urine Nitrite NEG, Urine Bilirubin NEG, Urine Urobilinogen 0.2, Ur Leukocyte Esterase NEG, Ur Microscopic SEDIMENT EXAMINED, Urine RBC FEW H, Ur Epithelial Cells RARE, Urine Hemoglobin SMALL H, Urine Glucose NEG 02/26/18 1817: Anion Gap 21 H, Estimated GFR > 60, BUN/Creatinine Ratio 27.1 H, Glucose 119 H, Calcium 9.6, Magnesium 1.8, Total Bilirubin 0.9, AST 37 H, ALT 33, Alkaline Phosphatase 89, Troponin I < 0.01, Total Protein 8.0, Albumin 4.7, Globulin 3.3, Albumin/Globulin Ratio 1.4, CBC w Diff NO MAN DIFF REQ, RBC 5.65 H, MCV 80.5 L , MCH 25.6 L, MCHC 31.9 L, RDW 17.1 H, MPV 7.6, Gran % 79.9 H, Lymphocytes % 12.1 L, Monocytes % 7.7, Eosinophils % 0, Basophils % 0.3, Absolute Granulocytes 9.2 H, Absolute Lymphocytes 1.4, Absolute Monocytes 0.9 H, Absolute Eosinophils 0, Absolute Basophils 0, Serum Alcohol 161.0 02/26/18 1756: Troponin I Cancelled Diagnostic Data EKG Results Sinus rhythm, 129, nonspecific T-wave changes on the lateral lead QTC 392, with repeated EKG it was 433 Assessment/Plan Assessment: Ms. Penaloza is a 57-year-old lady with past medical history of alcohol abuse with multiple detox, history of anxiety/depression, emphysema not on home oxygen , metastatic lung cancer to the brain status post craniotomy and chemotherapy at 2014 currently on remission, history of MD, stage I diastolic dysfunction, presented to emergency department requesting alcohol detox. Vitals, examination, labs as above Assessment #Alcohol dependence now requesting alcohol detox #Sinus tachycardia/ hypotension #Nonspecific EKG changes #Leukocytosis with left shift #Suicidal ideation Plan: * Admit to telemetry floor * Her sinus tachycardia most likely related to her detox, I don't think she received sufficient Ativan to control her symptoms, at emergency department she received a total of 3 IV Ativan, she has been scoring 2 every 2 hours since this morning on CIWA scale, yesterday at night she was scoring 13. However her BP is in the lower side despite the IV fluids. * Given that she has nonspecific T-wave changes on the lateral lead, tachycardic and hypotensive with heart racing with no chest pain, will place cardiology consult with Dr. Rowell * Will order troponin and EKG now, first one done yesterday was negative. * She has leukocytosis with left shift, will order urine culture given that her UA is +ve for RBC, she denies any urinary symptoms and she didn't spiked fever, but sepsis can't be r/o given low BP. * Will order baseline CXR * We'll check TSH, Mg, Po4 * CIWA protocol * Ativan per CIWA * Schedule Ativan 2 mg by mouth every 6 hr * Psych consults * fishing worker consult * Banana bag, 1 bag of IV fluid after banana bag * Thiamine, multivitamin, and folic acid start from tomorrow * We'll continue her home medications. Spiriva, Advair, gabapentin, Seroquel, metoprolol, aspirin, Lipitor, and Lexapro DVT prophylaxis SCD Lovenox She is full code As Ranked By This Provider Problem List: 1. Suicidal ideation 2. Alcohol dependence 3. Alcohol withdrawal 4. Tachycardia 5. Hypotension Core Measures/Misc (08/18) Acute Coronary Syndrome ACS Diagnosis: No Congestive Heart Failure Congestive Heart Failure Diagnosis No Cerebrovascular Accident CVA/TIA Diagnosis: No VTE (View Protocol) VTE Risk Factors Age>40 No Mechanical VTE Prophylaxis d/t N/A MechProphylax Ordered No VTE Pharm Prophylaxis d/t NA PharmProphylax ordered Sepsis (View protocol) Sepsis Present: No [facility] 02/27/18 1617: Attending MD Review Statement Attending Statement Attending MD Statement: examined this patient, discuss w/resident/PA/FISHER DIVER NET, agreed w/resident/PA/FISHER DIVER NET, reviewed EMR data (avail), discussed with nursing, discussed with case mgmt Attending Assessment/Plan: Etoh abuse and intoxication- pt says she was sober for 6 months and started drinking back on saturday. She drank about 7 small bottles of vodka and then after that about a pint of vodka. She came to the Er asking for detox. pt will be admitted and placed on CIWA protocol. Hypotension and tachycardia- got fluid boluses in Er. will switch her to Ringer lactate secondary to hyperchloremia. will see how her bp does. monitor on tele. hold bp meds - she takes metoprolol at home. Will get cardiology to see her. She sees Dr Rowell for cardio. Will get b12. folate and vit d level. will check her amylase and lipase levels. will also check Free T4 level as her TSH is high.
--- NOTE | 2018-02-27 16:17 | Admission Certification ---
Admission Certification Certification Statement - As attending physician, I certify that at the time of - admission, based on clinical presentation, severity of - symptoms, need for further diagnostic testing and - therapeutic interventions, and risk of adverse outcomes - without in-hospital treatment, in my clinical assessment, - this patient requires an acute hospital stay for a minimum - of two nights or longer. I have also considered psychsocial - factors such as support system, advanced age, financial - issues, cognitive issues, and failed out-patient treatments, - past re-admission history, safety of patient, and lack of - compliance as applicable. Specific rationale supporting this admission is: etoh abuse and intoxication hypotension and tachycardia
--- NOTE | 2018-02-27 17:46 | RADIOLOGY REPORT ---
EXAMINATION: XR PORTABLE CHEST CLINICAL INFORMATION: 57-year-old female with hypotension and leukocytosis. COMPARISON: None TECHNIQUE: Portable frontal view of the chest was obtained. FINDINGS: The cardiomediastinal silhouette is within normal limits. The lungs are clear without focal consolidation. No pleural effusion or pneumothorax. No acute osseous abnormality. IMPRESSION: No radiographic evidence of acute pulmonary disease.
[2018-02-28 06:00] VITALS: BP 118/72
--- NOTE | 2018-02-28 07:06 | PN- Housestaff ---
[facility]706: Subjective Follow-up For: Alcohol detox Sinus tachycardia Tele-Events Since Last Visit: Sinus rhythm heart rate between [id number] Subjective: No overnight events. Patient remained afebrile overnight. Seen and examined this morning. Patient denied any chest pain, short of breath, nausea, vomiting, chills, fever, abdominal pain dysuria. Patient has one-on-one sitter considering her suicidal ideation but this morning she denied it. Patient slept well last night but she is still feeling tired. Her CIWA score remained stable overnight. She is getting just scheduled doses. Review of Systems Constitutional: Reports: weakness. EENTM: Reports: no symptoms. Cardiovascular: Reports: no symptoms. Respiratory: Reports: no symptoms. Gastrointestinal: Reports: no symptoms. Genitourinary: Reports: no symptoms. Musculoskeletal: Reports: no symptoms. Neurological/Psychological: Reports: no symptoms. Objective Last 24 Hrs of Vital Signs/I&O Vital Signs Date Time Temp Pulse Resp B/P B/P Pulse O2 O2 Flow FiO2 Mean Ox Delivery Rate 02/28 0600 97.9 114 18 118/72 92 02/27 2232 97.2 106 18 112/80 95 Room Air 02/27 1800 115 02/27 1606 99.3 112 20 122/80 94 Room Air 02/27 1600 99.3 112 20 122/80 02/27 1507 107 108/70 02/27 1440 97.2 100 18 93/63 02/27 1440 97.2 100 18 /63 98 Room Air 02/27 1423 97.6 105 18 91/60 02/27 1422 97.6 106 18 60 95 Room Air 02/27 1325 105 86/53 95 Room Air 02/27 1243 98.6 100 18 88/40 02/27 1235 98.8 102 18 /40 100 Room Air 02/27 1203 98.7 103 18 99 02/27 1019 98.6 123 18 98/56 02/27 1019 98.6 123 18 98/ 98 Room Air Intake & Output 02/28 1600 02/28 0800 02/28 0000 Intake Total 120 920 Output Total Balance 120 920 Intake, IV 800 Intake, Oral 120 120 Patient 165 lb Weight Weight Bed scale Measurement Method Physical Exam General Appearance: Alert, Oriented X3, Cooperative Skin: No Rashes Skin Temp/Moisture Exam: Warm/Dry Sepsis Skin Exam (color): Normal for Ethnicity HEENT: Atraumatic, PERRLA, EOMI Neck: Supple Cardiovascular: Normal S1, Normal S2 Lungs: Clear to Auscultation Abdomen: Soft, No Tenderness Neurological: Normal Speech, Strength at 5/5 X4 Ext, Normal Tone Extremities: No Edema Assessment/Plan Assessment: 57 YO F with PMH of alcohol abuse with multiple detox, history of anxiety/ depression, emphysema not on home oxygen, metastatic lung cancer to the brain status post craniotomy and chemotherapy at 2014 currently on remission, history of MD, stage I diastolic dysfunction, presented to emergency department requesting alcohol detox. We are following the patient on telemetry floor for following problems. Alcohol detox: -Continue CIWA protocol -Ativan 2 mg every 6 -Supplemental vitamin B12, folic acid and thiamine -IV Zofran when necessary -Social work consult Hypotension due to hypovolemia:(resolved) -Probably due to dehydration due to low oral intake and drinking. -Encourage oral intake. Suicidal ideation: -Continue one-on-one sitter -Psychiatric consult Sinus tachycardia with nonspecific EKG changes: -Continue telemetry monitoring, could be due to dehydration or withdrawal. - Metoprolol 12.5 mg twice a day was started. -Continue aspirin -Cardio consult History of MD with stage I diastolic dysfunction: -Continue aspirin -Holding metoprolol due to hypotension History of COPD: -Continue Spiriva -Continue Advair -Nebulization treatment as needed History of anxiety depression: -Continue Seroquel -Continue escitalopram History of hyperlipidemia: -Continue Lipitor DVT Prophylaxis: -Mechanical and subcutaneous Lovenox CODE STATUS; Full code Problem List: 1. Tachycardia 2. Suicidal ideation 3. Alcohol withdrawal Pain Ratin Pain Location: NONE Pain Goal: Remain pain free Pain Plan: PAIN PATHWAY Tomorrow's Labs & Rationales: Kp Roberts 02/28/18 1058: Attending MD Review Statement Attending Statement Attending MD Statement: examined this patient, discuss w/resident/PA/BOWLING ALLEY MANAGER, agreed w/resident/PA/BOWLING ALLEY MANAGER, reviewed EMR data (avail), discussed with nursing, discussed with case mgmt Attending Assessment/Plan: Pt seen and examined at bedside. Etoh abuse and intoxication- cont on Ciwa protocol, taper ativan if stays stable. Pt was drinking for 3 days without much food or water and was severly dehdrated at admission with hypotension. Hypotension- sec to severe dehydration. bp better now. Tachycardia- combination of alcohol withdrawl and severe dehydration. will have cardiology see her. Her HR overnight stayed b/w 100-115. Psychiatry consulted for suicidal ideations. d/w pt the care plan.
[2018-02-28 10:06] LABS: ABSOLUTE MONOCYTE COUNT 0.6 /CUMM (0.10-0.60); EOSINOPHIL % 4.6 % (0-5); MEAN CORPUSCULAR HGB CONC 32.6 G/DL (33.0-37.0)
[2018-02-28 10:20] LABS: ABSOLUTE BASOPHIL COUNT 0 /CUMM (0.0-0.2); ABSOLUTE EOSINOPHIL COUNT 0.2 /CUMM (0.0-0.7); ABSOLUTE GRANULOCYTE CT 3.5 /CUMM (1.4-6.5); BASOPHIL % 0.9 % (0.0-2.0); GRANULOCYTE % 64.9 % (42.2-75.2); MEAN CORPUSCULAR HGB 26.3 PG (27.0-31.0); MEAN CORPUSCULAR VOLUME 80.6 FL (81.0-99.0); MEAN PLATELET VOLUME 7.8 FL (7.4-10.4); PLATELET COUNT 252 /CUMM (130-400); RBC DISTRIBUTION WIDTH 17.7 % (11.5-14.5)
[2018-02-28 10:21] LABS: HEMATOCRIT 31.2 % (37-47); RED BLOOD CELL CT 3.87 /CUMM (4.20-5.40); WHITE BLOOD CELL COUNT 5.4 /CUMM (4.8-10.8)
--- NOTE | 2018-02-28 13:08 | Cons- Cardiology ---
General Information and HPI Consulting Request Date of Consult: 02/28/18 Requested By: Kp Mireles MD Reason for Consult: Persistent sinus tachycardia Source of Information: patient, old records Exam Limitations: no limitations History of Present Illness: The patient is a 57-year-old female known to me from prior office visits and hospital visits. Her past echo history is remarkable for alcohol abuse, prior detoxification, anxiety and depression, emphysema, metastatic lung cancer, status post craniotomy and chemotherapy, history of diastolic dysfunction in reportedly prior [place]. The patient now presents to the hospital with requests for alcohol detoxification. In the emergency room, the patient was noted to be tachycardic. This appears to be primarily sinus tachycardia. She was admitted to the telemetry floor initially and continues to be tachycardic with sinus tachycardia and heart rates of between 101 130. Last night, reportedly, her heart rate was a size 140. The patient was symptomatic with palpitations at that time but currently remains with a heart rate of 110 and is asymptomatic. She denies any fevers, chills, systemic symptoms, chest pain, shortness of breath, etc. at the moment. Allergies/Medications Allergies: Coded Allergies: No Known Allergies (06/24/16) Home Med List: Aspirin (Aspirin*) 81 MG TAB.CHEW 1 TAB PO DAILY HEART HEALTH Atorvastatin Calcium (Lipitor) 40 MG TABLET 1 TAB PO DAILY CHOLESTEROL ( Reported) Escitalopram Oxalate 20 MG TABLET 1 TAB PO DAILY MENTAL HEALTH (Reported) Fluticasone/Salmeterol (Advair 250-50 Diskus) 250 MCG-50 MCG/DOSE BLST.W.DEV 1 PUF INH BID COPD (Reported) Gabapentin 600 MG TABLET 2 TAB PO BID ANXIETY (Reported) Metoprolol Tartrate 25 MG TABLET 1 TAB PO DAILY HEART/BP (Reported) Quetiapine Fumarate (Seroquel) 100 MG TABLET 2 TAB PO TID MENTAL HEALTH ( Reported) Quetiapine Fumarate (Seroquel) 200 MG TABLET 1 TAB PO QHS MENTAL HEALTH ( Reported) Tiotropium [place] (Spiriva) 18 MCG CAP.W.DEV 1 CAP INH DAILY COPD (Reported) Current Medications: Current Medications Sig/John Start time Last Medication Dose Route Stop Time Status Admin Aspirin 81 MG DAILY 02/27 1000 AC 02/28 PO 1028 Atorvastatin Calcium 40 MG AT BEDTIME 02/27 2200 AC 02/27 PO 2048 Atorvastatin Calcium 40 MG DAILY 02/27 1000 DC PO Budesonide/ 2 PUF BID 02/26 2200 AC 02/28 Formoterol Fumarate INH 0526 Cyanocobalamin 1,000 MCG DAILY 02/28 1000 AC IM Cyanocobalamin/ 1 BAG ONCE ONE 02/27 1100 DC 02/27 Thiamine/Pyridoxine IV 02/27 1859 1154 Sodium Chloride 1,000 ML Enoxaparin Sodium 40 MG DAILY 02/28 1000 AC 02/28 SC 1035 Ergocalciferol 50,000 IU ONCE A WEEK 02/28 1000 AC PO Escitalopram Oxalate 20 MG DAILY 02/27 1000 AC 02/28 PO 1027 Folic Acid 1 MG DAILY 02/28 1000 AC 02/28 PO 1035 Gabapentin 1,200 MG Q8 02/27 1400 AC 02/28 PO 0525 Lactated Ringer's 500 ML .Q6H40M 02/28 0830 AC 02/28 IV 1035 Lorazepam 0 Q1P PRN 02/27 1115 AC IV Lorazepam 2 MG Q6H 02/27 1100 AC 02/28 PO 1031 Magnesium Oxide 400 MG ONE ONE 02/28 0900 DC 02/28 PO 02/28 0901 1028 Metoprolol Tartrate 12.5 MG BID 02/28 1128 AC PO Metoprolol Tartrate 25 MG DAILY 02/27 1000 DC 02/27 PO 1012 Multivitamins 1 TAB DAILY 02/28 1000 AC 02/28 PO 1027 Patient Medication 1 ED ONE ONE 02/28 1230 DC Teaching ED 02/28 1231 Potassium Chloride 40 MEQ ONCE ONE 02/28 0900 DC 02/28 PO 02/28 0901 1027 Quetiapine Fumarate 200 MG TID 02/26 2200 AC 02/28 PO 1027 Sodium Chloride 1,000 ML Q13H 02/27 1115 DC 02/27 IV 02/28 0014 1154 Thiamine HCl 100 MG DAILY 02/28 1000 AC 02/28 PO 1027 Tiotropium [place] 1 PUF DAILY 02/27 1000 AC 02/27 INH 1012 Past History Travel History Traveled to [place] past 21 day No Medical History Blood Transfusion Hx: No Neurological: NONE EENT: NONE Cardiovascular: CAD Respiratory: COPD, LUNG CANCER Gastrointestinal: NONE Hepatic: NONE Renal: NONE Musculoskeletal: NONE Psychiatric: alcohol dependence Endocrine: NONE Blood Disorders: NONE 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, 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 Home Smoking Status: Former Smoker (currently vaping) ETOH Use: heavy use Illicit Drug Use: denies illicit drug use Exam & Diagnostic Data Vital Signs and I&O Vital Signs Date Time Temp Pulse Resp B/P B/P Pulse O2 O2 Flow FiO2 Mean Ox Delivery Rate 02/28 0600 97.9 114 18 118/72 92 02/27 2232 97.2 106 18 112/80 95 Room Air 02/27 1800 115 02/27 1606 99.3 112 20 122/80 94 Room Air 02/27 1600 99.3 112 20 122/80 02/27 1507 107 108/70 02/27 1440 97.2 100 18 93/63 02/27 1440 97.2 100 18 63 98 Room Air 02/27 1423 97.6 105 18 91/60 02/27 1422 97.6 106 18 91/60 95 Room Air 02/27 1325 105 86/53 95 Room Air Intake & Output 02/28 1600 02/28 0800 02/28 0000 02/27 1600 02/27 0800 02/27 0000 Intake Total 014 030 7547 1000 Output Total Balance 201 256 5635 1000 Intake, IV 800 2000 1000 Intake, Oral 120 120 Patient 165 lb 150 lb Weight Weight Bed scale Estimated Measurement Method Physical Exam: General Appearance Alert, Oriented X3, Cooperative, No Acute Distress, slightly anxious, slightly tremulous. Skin normal Neck Supple, No JVD, carotid up stroke bilaterally Cardiovascular tachycardic, Normal S1, Normal S2, soft S4 No Murmurs Lungs Clear to Auscultation and percussion bilaterally Abdomen Normal Bowel Sounds, Soft, No Tenderness Neurological Normal/nonfocal Extremities No Edema, Normal Pulses Vascular Normal Pulses, bilaterally Labs/Bhavin Results: Laboratory Tests 02/28 02/28 02/27 0940 0640 1351 Chemistry Sodium (137 - 145 mmol/L) 144 141 Potassium (3.5 - 5.1 mmol/L) 3.6 3.6 Chloride (98 - 107 mmol/L) 112 H 111 H Carbon Dioxide (22 - 30 mmol/L) 24 25 Anion Gap (5 - 16) 8 5 BUN (7 - 17 mg/dL) 18 H 18 H Creatinine (0.5 - 1.0 mg/dL) 0.6 0.7 Estimated GFR (>60 ml/min) > 60 > 60 BUN/Creatinine Ratio (7 - 25 %) 30.0 H 25.7 H Phosphorus (2.5 - 4.5 mg/dL) 2.8 Magnesium (1.6 - 2.3 mg/dL) 1.7 Total Bilirubin (0.2 - 1.3 mg/dL) 0.5 Direct Bilirubin (< 0.4 mg/dL) 0.4 AST (14 - 36 U/L) 35 ALT (9 - 52 U/L) 46 Alkaline Phosphatase (<127 U/L) 57 Total Protein (6.3 - 8.2 g/dL) 4.8 L Albumin (3.5 - 5.0 g/dL) 2.5 L Hematology CBC w Diff NO MAN DIFF REQ WBC (4.8 - 10.8 /CUMM) 5.4 RBC (4.20 - 5.40 /CUMM) 3.87 L Hgb (12.0 - 16.0 G/DL) 10.2 L Hct (37 - 47 %) 31.2 L MCV (81.0 - 99.0 FL) 80.6 L MCH (27.0 - 31.0 PG) 26.3 L MCHC (33.0 - 37.0 G/DL) 32.6 L RDW (11.5 - 14.5 %) 17.7 H Plt Count (130 - 400 /CUMM) 252 MPV (7.4 - 10.4 FL) 7.8 Gran % (42.2 - 75.2 %) 64.9 Lymphocytes % (20.5 - 51.1 %) 18.3 L Monocytes % (1.7 - 9.3 %) 11.3 H Eosinophils % (0 - 5 %) 4.6 Basophils % (0.0 - 2.0 %) 0.9 Absolute Granulocytes (1.4 - 6.5 /CUMM) 3.5 Absolute Lymphocytes (1.2 - 3.4 /CUMM) 1.0 L Absolute Monocytes (0.10 - 0.60 /CUMM) 0.6 Absolute Eosinophils (0.0 - 0.7 /CUMM) 0.2 Absolute Basophils (0.0 - 0.2 /CUMM) 0 02/27 02/26 [id number] Chemistry Troponin I (< 0.11 ng/ml) < 0.01 Amylase (30 - 110 U/L) 57 Lipase (23 - 300 U/L) 38 Vitamin B12 (239 - 931 pg/mL) 240 25-OH Vitamin D Total (30 - 100 ng/ml) 7.6 L Folate (2.76 - 20.0 ng/mL) > 20.0 H TSH (0.270 - 4.200 uIU/mL) 6.440 H Free T4 (0.64 - 1.79 ng/dL) 0.80 Total T3 (0.97 - 1.69 ng/mL) 0.77 L Toxicology Urine Opiates Screen (>2000 NG/ML) < 100 Methadone Screen (>300 NG/ML) 48 Barbiturate Screen (>200 NG/ML) < 60 Ur Phencyclidine Scrn (>25 NG/ML) < 6.00 Amphetamines Screen (>1000 NG/ML) 247 U Benzodiazepines Scrn (>200 NG/ML) < 85 Urine Cocaine Screen (>300 NG/ML) < 50 Urine Cannabis Screen (>50 NG/ML) < 5.00 Urines Urine Color (YEL,AMB,STR) YEL Urine Clarity (CLEAR) CLEAR Urine pH (5.0 - 8.0) 6.0 Ur Specific [place] (1.001 - 1.035) >= 1.030 Urine Protein (NEG,<30 MG/DL) 100 H Urine Ketones (NEG) >=80 Urine Nitrite (NEG) NEG Urine Bilirubin (NEG) NEG Urine Urobilinogen (0.1 - 1.0 EU/dl) 0.2 Ur Leukocyte Esterase (NEG) NEG Ur Microscopic SEDIMENT EXAMINED Urine RBC (0 - 5 /HPF) FEW H Ur Epithelial Cells (NONE,FEW) RARE Urine Hemoglobin (NEG) SMALL H Urine Glucose (N MG/DL) NEG 02/26 02/26 1817 1756 Chemistry Sodium (137 - 145 mmol/L) 139 Potassium (3.5 - 5.1 mmol/L) 4.3 Chloride (98 - 107 mmol/L) 97 L Carbon Dioxide (22 - 30 mmol/L) 21 L Anion Gap (5 - 16) 21 H BUN (7 - 17 mg/dL) 19 H Creatinine (0.5 - 1.0 mg/dL) 0.7 Estimated GFR (>60 ml/min) > 60 BUN/Creatinine Ratio (7 - 25 %) 27.1 H Glucose (65 - 99 mg/dL) 119 H Calcium (8.4 - 10.2 mg/dL) 9.6 Magnesium (1.6 - 2.3 mg/dL) 1.8 Total Bilirubin (0.2 - 1.3 mg/dL) 0.9 AST (14 - 36 U/L) 37 H ALT (9 - 52 U/L) 33 Alkaline Phosphatase (<127 U/L) 89 Troponin I (< 0.11 ng/ml) < 0.01 Cancelled Total Protein (6.3 - 8.2 g/dL) 8.0 Albumin (3.5 - 5.0 g/dL) 4.7 Globulin (1.9 - 4.2 gm/dL) 3.3 Albumin/Globulin Ratio (1.1 - 2.2 %) 1.4 Hematology CBC w Diff NO MAN DIFF REQ WBC (4.8 - 10.8 /CUMM) 11.5 H RBC (4.20 - 5.40 /CUMM) 5.65 H Hgb (12.0 - 16.0 G/DL) 14.5 Hct (37 - 47 %) 45.4 MCV (81.0 - 99.0 FL) 80.5 L MCH (27.0 - 31.0 PG) 25.6 L MCHC (33.0 - 37.0 G/DL) 31.9 L RDW (11.5 - 14.5 %) 17.1 H Plt Count (130 - 400 /CUMM) 417 H MPV (7.4 - 10.4 FL) 7.6 Gran % (42.2 - 75.2 %) 79.9 H Lymphocytes % (20.5 - 51.1 %) 12.1 L Monocytes % (1.7 - 9.3 %) 7.7 Eosinophils % (0 - 5 %) 0 Basophils % (0.0 - 2.0 %) 0.3 Absolute Granulocytes (1.4 - 6.5 /CUMM) 9.2 H Absolute Lymphocytes (1.2 - 3.4 /CUMM) 1.4 Absolute Monocytes (0.10 - 0.60 /CUMM) 0.9 H Absolute Eosinophils (0.0 - 0.7 /CUMM) 0 Absolute Basophils (0.0 - 0.2 /CUMM) 0 Toxicology Serum Alcohol (<10 MG/DL) 161.0 Assessment/Plan Assessment/Plan Assessment: 1. Persistent sinus tachycardia 2. Transient hypotension 3. Nonspecific ECG changes 4. Alcohol dependence, requesting alcohol detox 5. Suicidal ideation 6. Leukocytosis Recommendations: -At the moment, the patient has persistent sinus tachycardia, which is slightly improved from previously but persisted nonetheless. She is not significantly anemic, her thyroid profile is unrevealing, etc. I do not see any evidence of any acute cardiac issues and there are no arrhythmias detected at the moment. The patient's history, the most likely issue is a component of beta hammad withdrawal and underlying alcohol withdrawal. At the moment, she is slightly tremulous, etc. -Continue to monitor on telemetry for another 24 hours -Restart beta blockers, metoprolol 12.5 mg twice a day -If, in spite of conservative management, the patient remains tachycardic, consider a follow-up echocardiogram to reassess left ventricular function, rule out pericardial effusion, etc. -Reassess in 24 hours Consult Acknowledgment - Thank you for your consult request.
[2018-02-28 14:31] VITALS: BP 118/88
[2018-02-28 23:38] VITALS: BP 96/64
[2018-03-01 06:56] VITALS: BP 98/66
--- NOTE | 2018-03-01 12:12 | PN- Att Addend ---
Attending Addendum Attending Brief Note pt seen and examined. Overall she still feeling like she is withdrawing from alcohol but from the notes it appears that she is less tremulous than before. She is on Ativan 2 mg [id number] scheduled and didn't require any when necessary's of Ativan yesterday , got one when necessary today. On exam pressure right now is 128/76 and she had episodes yesterday of 98/66, heart rate right now is 110 but it goes as high as 120, afebrile and breathing at 16-18 Lungs have decreased breath sounds but clear anteriorly, heart is S1-S2 tachycardia, abdomen is soft nontender and she has no edema. BUN is 17, creatinine is 0.6 and she's hypoalbuminemic. This is a 57-year-old with a past medical history of metastatic lung cancer, CAD and active alcohol use. She is here with impending alcohol withdrawal. She had suicidal ideation and we are pending a formal psychiatry consult. We've kept a sitter for the suicidal ideation. She was treated for dehydration but now that she is eating and her pressure is better, I will stop the fluids. She takes metoprolol 25 twice a day as an outpatient and the tachycardia has been attributed to dehydration and alcohol withdrawal. Given that her pressure is okay, I'll restart her metoprolol 25 twice a day and watch the pressure closely. Keep the Ativan at 2mg every 6 for today and tomorrow I can start slowly tapering it. Follow her labs including her crit, coags and BUN and creatinine in a.m.
--- NOTE | 2018-03-01 12:18 | PN- Housestaff ---
Subjective Follow-up For: Alcohol detox Sinus tachycardia Tele-Events Since Last Visit: Normal sinus rhythm HR 7081 PVC/bigeminy/trigeminy Subjective: No acute events overnight. States she feels confused and weak on her feet. Review of Systems Constitutional: Reports: see HPI. Objective Last 24 Hrs of Vital Signs/I&O Vital Signs Date Time Temp Pulse Resp B/P B/P Pulse O2 O2 Flow FiO2 Mean Ox Delivery Rate 03/019 98.2 101 20 133/80 96 Room Air 03/01 2131 106 133/80 03/01 1504 97.8 114 18 124/68 94 03/01 0828 124 128/76 03/01 0656 97.6 101 18 98/66 94 Room Air 02/28 2338 98.2 100 18 96/64 95 Room Air Intake & Output 03/01 1600 03/01 0800 03/01 0000 Intake Total 840 800 Output Total Balance 840 800 Intake, IV 600 600 Intake, Oral 240 200 Patient 165 lb Weight Weight Bed scale Measurement Method Physical Exam General Appearance: Alert, Oriented X3, Cooperative, Mild Distress, appears somewhat anxious Cardiovascular: Normal S1, Normal S2, tachycardia Lungs: Clear to Auscultation, Normal Air Movement Abdomen: Soft, decreased bowel sounds Vascular: 2+ radial pulses Current Medications: Current Medications Sig/John Start time Last Medication Dose Route Stop Time Status Admin Aspirin 81 MG DAILY 02/27 1000 AC 03/01 PO 0823 Atorvastatin Calcium 40 MG AT BEDTIME 02/27 2200 AC 03/01 PO 2131 Budesonide/ 2 PUF BID 02/26 2200 AC 03/01 Formoterol Fumarate INH 2135 Cyanocobalamin 1,000 MCG DAILY 02/28 1000 AC 03/01 IM 1206 Enoxaparin Sodium 40 MG DAILY 02/28 1000 AC 03/01 SC 0824 Ergocalciferol 50,000 IU ONCE A WEEK 02/28 1000 AC 02/28 PO 1604 Escitalopram Oxalate 20 MG DAILY 02/27 1000 AC 03/01 PO 0823 Folic Acid 1 MG DAILY 02/28 1000 AC 03/01 PO 0823 Gabapentin 1,200 MG Q8 02/27 1400 AC 03/01 PO 2131 Lactated Ringer's 500 ML .Q6H40M 02/28 0830 DC 02/28 IV 1604 Lorazepam 0 Q1P PRN 02/27 1115 AC 03/01 IV 2017 Lorazepam 2 MG Q6H 02/27 1100 AC 03/01 PO 1629 Metoprolol Tartrate 25 MG BID 03/01 2200 AC 03/01 PO 2131 Metoprolol Tartrate 12.5 MG BID 02/28 1128 DC 03/01 PO 0828 Multivitamins 1 TAB DAILY 02/28 1000 AC 03/01 PO 0823 Quetiapine Fumarate 200 MG TID 02/26 2200 AC 03/01 PO 2131 Thiamine HCl 100 MG DAILY 02/28 1000 AC 03/01 PO 0823 Tiotropium [place] 1 PUF DAILY 02/27 1000 AC 03/01 INH 0821 Last 24 Hrs of Lab/Bhavin Results Last 24 Hrs of Labs/Mics: Laboratory Tests 03/01/18 0622: Anion Gap 8, Estimated GFR > 60, BUN/Creatinine Ratio 28.3 H, Magnesium 1.8 Orders CIWA Score (last 24 hrs): 10 Assessment/Plan Assessment: 57 YO F with PMH of alcohol abuse with multiple detox, history of anxiety/ depression, emphysema not on home oxygen, metastatic lung cancer to the brain status post craniotomy and chemotherapy at 2013 currently on remission, history of [place], stage I diastolic dysfunction, presented to emergency department requesting alcohol detox. Alcohol detox: -Continue CIWA protocol -Ativan 2 mg every 6 -Supplemental vitamin B12, folic acid and thiamine -IV Zofran when necessary -Social work consult Suicidal ideation: -Continue one-on-one sitter -Awaiting Psychiatric consult Hypotension due to hypovolemia:(resolved) -Probably due to dehydration due to low oral intake and drinking. -Encourage oral intake. Sinus tachycardia with nonspecific EKG changes: - Resolved -Most likely due to dehydration or withdrawal. -Continue 12.5 mg twice a day was started. -Continue aspirin -f/u Cardio consult History of ME with stage I diastolic dysfunction: -Continue aspirin -Restart metoprolol twice a day History of COPD: -Continue Spiriva -Continue Advair -Nebulization treatment as needed History of anxiety depression: -Continue Seroquel -Continue escitalopram History of hyperlipidemia: -Continue Lipitor DVT Prophylaxis: -Mechanical and subcutaneous Lovenox CODE STATUS; Full code Problem List: 1. Tachycardia 2. Suicidal ideation 3. Alcohol dependence Pain Ratin Pain Location: none Pain Goal: Pain 4 or less Pain Plan: pain pathway Tomorrow's Labs & Rationales: cbc bep coags
[2018-03-01 15:04] VITALS: BP 124/68
[2018-03-01 22:39] VITALS: BP 133/80
[2018-03-02 07:19] VITALS: BP 126/84
[2018-03-02 08:16] LABS: ABSOLUTE BASOPHIL COUNT 0 /CUMM (0.0-0.2); ABSOLUTE EOSINOPHIL COUNT 0.3 /CUMM (0.0-0.7); ABSOLUTE GRANULOCYTE CT 3.7 /CUMM (1.4-6.5); ABSOLUTE LYMPH COUNT 0.8 /CUMM (1.2-3.4); ABSOLUTE MONOCYTE COUNT 0.7 /CUMM (0.10-0.60); BASOPHIL % 0.4 % (0.0-2.0); EOSINOPHIL % 5.7 % (0-5); GRANULOCYTE % 66.8 % (42.2-75.2); HEMATOCRIT 30.6 % (37-47); MEAN CORPUSCULAR HGB 26.4 PG (27.0-31.0); MEAN CORPUSCULAR HGB CONC 32.4 G/DL (33.0-37.0); MEAN CORPUSCULAR VOLUME 81.7 FL (81.0-99.0); MEAN PLATELET VOLUME 8.3 FL (7.4-10.4); PLATELET COUNT 261 /CUMM (130-400); RBC DISTRIBUTION WIDTH 17.3 % (11.5-14.5); RED BLOOD CELL CT 3.75 /CUMM (4.20-5.40); WHITE BLOOD CELL COUNT 5.5 /CUMM (4.8-10.8)
[2018-03-02 08:32] LABS: PT 10.7 SEC (9.4-12.5)
--- NOTE | 2018-03-02 09:27 | PN- Housestaff ---
AmosRabia 03/02/18 0927: Subjective Follow-up For: Alcohol detox Sinus tachycardia Tele-Events Since Last Visit: NSR 60-70s Subjective: No overnight event. Patient c/o of her breathing and would like Spiriva and other meds. Otherwise no complaint. Review of Systems Constitutional: Reports: see HPI. Objective Last 24 Hrs of Vital Signs/I&O Vital Signs Date Time Temp Pulse Resp B/P B/P Pulse O2 O2 Flow FiO2 Mean Ox Delivery Rate 03/02 0857 98 126/84 03/02 0719 98.5 98 16 126/84 95 Room Air 03/01 2239 98.2 101 20 133/80 96 Room Air 03/01 2131 106 133/80 03/01 1504 97.8 114 18 124/68 94 Intake & Output 03/02 1600 03/02 0800 03/02 0000 Intake Total 120 120 Output Total Balance 120 120 Intake, Oral 120 120 Patient 61.235 kg Weight Weight Bed scale Measurement Method Physical Exam General Appearance: Alert, Oriented X3, Cooperative, No Acute Distress Cardiovascular: Regular Rate Lungs: Clear to Auscultation, Normal Air Movement Abdomen: Soft, No Tenderness Current Medications: Current Medications Sig/John Start time Last Medication Dose Route Stop Time Status Admin Aspirin 81 MG DAILY 02/27 1000 AC 03/02 PO 0856 Atorvastatin Calcium 40 MG AT BEDTIME 02/27 2200 AC 03/01 PO 2131 Budesonide/ 2 PUF BID 02/26 2200 AC 03/02 Formoterol Fumarate INH 0854 Cyanocobalamin 1,000 MCG DAILY 02/28 1000 AC 03/01 IM 1206 Enoxaparin Sodium 40 MG DAILY 02/28 1000 AC 03/02 SC 0854 Ergocalciferol 50,000 IU ONCE A WEEK 02/28 1000 AC 02/28 PO 1604 Escitalopram Oxalate 20 MG DAILY 02/27 1000 AC 03/02 PO 0856 Folic Acid 1 MG DAILY 02/28 1000 AC 03/02 PO 0856 Gabapentin 1,200 MG Q8 02/27 1400 AC 03/02 PO 0503 Lactated Ringer's 500 ML .Q6H40M 02/28 0830 DC 02/28 IV 1604 Lorazepam 0 Q1P PRN 02/27 1115 AC 03/02 IV 0751 Lorazepam 2 MG Q6H 02/27 1100 AC 03/02 PO 0503 Metoprolol Tartrate 25 MG BID 03/01 2200 AC 03/02 PO 0857 Metoprolol Tartrate 12.5 MG BID 02/28 1128 DC 03/01 PO 0828 Multivitamins 1 TAB DAILY 02/28 1000 AC 03/02 PO 0857 Quetiapine Fumarate 200 MG TID 02/26 2200 AC 03/02 PO 0857 Thiamine HCl 100 MG DAILY 02/28 1000 AC 03/02 PO 0857 Tiotropium [place] 1 PUF DAILY 02/27 1000 AC 03/02 INH 0854 Last 24 Hrs of Lab/Bhavin Results Last 24 Hrs of Labs/Mics: Laboratory Tests 03/02/18 0640: Anion Gap 8, Estimated GFR > 60, BUN/Creatinine Ratio 18.3, PT 10.7, INR 0.98, CBC w Diff NO MAN DIFF REQ, RBC 3.75 L, MCV 81.7, MCH 26.4 L, MCHC 32.4 L, RDW 17.3 H, MPV 8.3, Gran % 66.8, Lymphocytes % 14.5 L, Monocytes % 12.6 H, Eosinophils % 5.7 H, Basophils % 0.4, Absolute Granulocytes 3.7, Absolute Lymphocytes 0.8 L, Absolute Monocytes 0.7 H, Absolute Eosinophils 0.3, Absolute Basophils 0 Assessment/Plan Assessment: 57 YO F with PMH of alcohol abuse with multiple detox, history of anxiety/ depression, emphysema not on home oxygen, metastatic lung cancer to the brain status post craniotomy and chemotherapy at 2014 currently on remission, history of [place], stage I diastolic dysfunction, presented to emergency department requesting alcohol detox. Alcohol detox: -Continue CIWA protocol Ativan PRN, had been reCIWA overnight had been 0s but was 8 this AM. had been receiving 2mg PRN doses overnight -Ativan 2 mg every 6 -Supplemental vitamin B12, folic acid and thiamine -IV Zofran when necessary -Social work consult Suicidal ideation: -Continue one-on-one sitter -Awaiting Psychiatric consult Hypotension due to hypovolemia:(resolved) -Probably due to dehydration due to low oral intake and drinking. -Encourage oral intake. currently eating/drinking well. Sinus tachycardia with nonspecific EKG changes: - Resolved -Most likely due to dehydration or withdrawal. -Continue 12.5 mg twice a day was started. -Continue aspirin -f/u Cardio consult History of IL with stage I diastolic dysfunction: -Continue aspirin -Restart metoprolol increased to 25mg twice a day History of COPD: -Continue Spiriva -Continue Advair -Nebulization treatment as needed History of anxiety depression: -Continue Seroquel -Continue escitalopram History of hyperlipidemia: -Continue Lipitor DVT Prophylaxis: -Mechanical and subcutaneous Lovenox CODE STATUS; Full code Problem List: 1. Alcohol dependence 2. Alcohol withdrawal Pain Ratin Pain Location: NA Pain Goal: Remain pain free Pain Plan: see AP Tomorrow's Labs & Rationales: RENEE Reese MD,Karlee 03/02/18 1107: Attending MD Review Statement Attending Statement Attending MD Statement: examined this patient, discuss w/resident/PA/[employer], agreed w/resident/PA/[employer], reviewed EMR data (avail), discussed with nursing, reviewed images Attending Assessment/Plan: The patient appears to be doing better than yesterday. Her tremulousness and anxiety appears better. She still has the one-to-one sitter and we are still awaiting psych clearance given her suicidal ideation that she expressed day before yesterday. Her heart rate appears better now in the 90s rather than over 100 and she is on the higher dose of metoprolol at 25 twice a day. Her pressure also appears to be tolerating that and her systolic is 120 to 130. Her electrolytes are within normal limits. She is getting replaced for B12 deficiency. Off note her hemoglobin is creeping down and she came in with 14 that I think probably reflected dehydration and now she is down to 9. Will need to guaiac stool and watch that. If her heart rate continues to be stable then likely we can take her off the monitor. She is on the Ativan 2mg every 6 and she got only 2 when necessary doses of Ativan yesterday and one today so I think we can safely now make it to 2mg every 8hrs today. And will need to make sure that psychiatry sees her.
[2018-03-02 14:00] VITALS: BP 128/76
[2018-03-02 23:02] VITALS: BP 118/78
[2018-03-03 06:39] VITALS: BP 116/80
--- NOTE | 2018-03-03 07:06 | PN- Housestaff ---
[facility] Subjective Follow-up For: Alcohol detox Sinus tachycardia Tele-Events Since Last Visit: Sinus rhythm with heart rate between 8090 with PVCs Subjective: No overnight events. Patient remained afebrile overnight. Seen and examined this morning. She denied any chest pain, short of breath, nausea, vomiting, chills, fever, abdominal pain dysuria. Her CIWA score is 0 and she is getting scheduled Ativan doses. Patient has wood repatcher. Review of Systems Constitutional: Reports: no symptoms. EENTM: Reports: no symptoms. Cardiovascular: Reports: no symptoms. Respiratory: Reports: no symptoms. Gastrointestinal: Reports: no symptoms. Genitourinary: Reports: no symptoms. Musculoskeletal: Reports: no symptoms. Neurological/Psychological: Reports: no symptoms. Objective Last 24 Hrs of Vital Signs/I&O Vital Signs Date Time Temp Pulse Resp B/P B/P Pulse O2 O2 Flow FiO2 Mean Ox Delivery Rate 03/03 0639 98.4 85 18 116/80 98 Room Air 03/02 2302 98.2 98 16 118/78 96 Room Air 03/02 2152 104 118/64 03/02 1400 98.3 100 20 128/76 95 / 0857 98 126/84 Intake & Output 03/03 0800 03/03 0000 03/02 1600 Intake Total 840 500 Output Total Balance 840 500 Intake, Oral 840 500 Patient 159 lb Weight Physical Exam General Appearance: Alert, Oriented X3, Cooperative, No Acute Distress Skin: No Rashes Skin Temp/Moisture Exam: Warm/Dry Sepsis Skin Exam (color): Normal for Ethnicity HEENT: Atraumatic, PERRLA, EOMI Neck: Supple Cardiovascular: Normal S1, Normal S2 Lungs: Clear to Auscultation Abdomen: Soft, No Tenderness Neurological: Normal Speech, Strength at 5/5 X4 Ext, Normal Tone, Sensation Intact Extremities: No Edema Assessment/Plan Assessment: 57 YO F with PMH of alcohol abuse with multiple detox, history of anxiety/ depression, emphysema not on home oxygen, metastatic lung cancer to the brain status post craniotomy and chemotherapy at 2014 currently on remission, history of CT, stage I diastolic dysfunction, presented to emergency department requesting alcohol detox. Following the patient on telemetry floor for following problems: Alcohol detox: -Continue CIWA protocol Ativan PRN. -Ativan 1.5mg Q8 -Supplemental vitamin B12, folic acid and thiamine -IV Zofran when necessary -Social work consult Suicidal ideation: -Sitter was discontinued as recommended by psych. -Patient will follow [facility] after discharge. Hypotension due to hypovolemia:(Resolved) -Probably due to dehydration due to low oral intake and drinking. -Encourage oral intake. currently eating/drinking well. Sinus tachycardia with nonspecific EKG changes: (Resolved) -Most likely due to dehydration or withdrawal. -Metoprolol 12.5 mg twice a day was increased to 25mg bid. -Continue aspirin -f/u Cardio consult History of CT with stage I diastolic dysfunction: -Continue aspirin -Continue metoprolol 25mg twice a day History of COPD: -Continue Spiriva -Continue Advair -Nebulization treatment as needed History of anxiety depression: -Continue Seroquel -Continue escitalopram History of hyperlipidemia: -Continue Lipitor DVT Prophylaxis: -Mechanical and subcutaneous Lovenox CODE STATUS: Full code Problem List: 1. Suicidal ideation 2. Tachycardia 3. Alcohol withdrawal Pain Ratin Pain Location: NONE Pain Goal: Remain pain free Pain Plan: PAIN PATHWAY Tomorrow's Labs & Rationales: NONE Kp Mireles 03/03/18 1430: Attending MD Review Statement Attending Statement Attending MD Statement: examined this patient, discuss w/resident/PA/ADJUNCT INSTRUCTOR, agreed w/resident/PA/ADJUNCT INSTRUCTOR, reviewed EMR data (avail), discussed with nursing, discussed with case mgmt Attending Assessment/Plan: Pt doing ok and CIWA scores are better. WIll cont to taper ativan and will see how she does. [facility]. Pt prefers to go home and f/u with IOP as an outpatient.
[2018-03-03 07:44] LABS: ABSOLUTE BASOPHIL COUNT 0 /CUMM (0.0-0.2); ABSOLUTE EOSINOPHIL COUNT 0.3 /CUMM (0.0-0.7); ABSOLUTE GRANULOCYTE CT 2.7 /CUMM (1.4-6.5); ABSOLUTE LYMPH COUNT 0.9 /CUMM (1.2-3.4); ABSOLUTE MONOCYTE COUNT 0.7 /CUMM (0.10-0.60); BASOPHIL % 0.9 % (0.0-2.0); EOSINOPHIL % 5.7 % (0-5); GRANULOCYTE % 58.7 % (42.2-75.2); HEMATOCRIT 31.6 % (37-47); MEAN CORPUSCULAR HGB 26.5 PG (27.0-31.0); MEAN CORPUSCULAR HGB CONC 32.5 G/DL (33.0-37.0); MEAN CORPUSCULAR VOLUME 81.6 FL (81.0-99.0); MEAN PLATELET VOLUME 8.1 FL (7.4-10.4); PLATELET COUNT 267 /CUMM (130-400); RBC DISTRIBUTION WIDTH 17.6 % (11.5-14.5); RED BLOOD CELL CT 3.88 /CUMM (4.20-5.40); WHITE BLOOD CELL COUNT 4.7 /CUMM (4.8-10.8)
--- NOTE | 2018-03-03 08:37 | Discharge Summary ---
Visit Information Visit Dates Admission Date: 02/27/18 Discharge Date: 03/04/18 Hospital Course Course Attending Physician: Darlene Moore MD Primary Care Physician: Gretel PANIAGUA,[place] Hospital Course: 57 YO F with PMH of alcohol abuse with multiple detox, history of anxiety/ depression, emphysema not on home oxygen, metastatic lung cancer to the brain status post craniotomy and chemotherapy at 2014 currently on remission, history of ID, stage I diastolic dysfunction, presented to emergency department requesting alcohol detox. ED course: Vitals: Temperature 99.9, pulse 133, respiratory rate 18, blood pressure 118/87, oxygen saturation 95% on room air. Labs: WBC count 11.5, hemoglobin 14.5, hematocrit 45.4, platelet count 417, sodium 139, potassium 4.3, BUN 19, creatinine 0.7, BUN/creatinine ratio 27.1, glucose 119, calcium 9.6, magnesium 1.8, ALT 33, AST 37, alkaline phosphatase 89 , troponin less than 0.01 Patient received 5 L of normal saline in ED considering her hypotension. Alcohol detox: Patient was admitted for alcohol detox. She was put on CIWA protocol and also scheduled 2 milligram ativan every 6 hourly. Patient was given supplemental vitamin B12, folic acid and thiamine. Zofran when necessary was ordered. Patient didn't get any additional ativan doses other than scheduled. Patient's condition improved and were tapered Ativan. Patient was discharged home with Ativan for 2 more days. Social consult was obtained to schedule her appointment with [facility] after the discharge. Suicidal ideation: On admission patient had suicidal ideation and one-on-one sitter was placed for patient safety. Later on psychiatry consult was obtained and recommendations were followed. Hypotension due to hypovolemia: On admission patient's blood pressure dropped probably due to excessive urination in the setting of alcohol use and also low oral intake. IV hydration was done and she was given normal saline to keep his blood pressure within normal limits. Her hypotension responded to IV fluids. Sinus tachycardia with nonspecific EKG changes: Patient had sinus tachycardia with nonspecific EKG changes. Troponins remained negative. Heart sinus tachycardia was possibly due to dehydration and alcohol withdrawal. Cardiology consult was obtained and recommendations were followed. Patient was given metoprolol 25 mg twice a day. History of ID with stage I diastolic dysfunction: Continued her aspirin and metoprolol. History of COPD: Continued her home medications. TRC nebulizations were given as needed. History of anxiety and depression: Continued her Seroquel and citalopram History of hyperlipidemia: Continued Lipitor DVT Prophylaxis: Mechanical and subcutaneous Lovenox CODE STATUS: Full code Allergies: Coded Allergies: No Known Allergies (06/24/16) Pertinent Lab Results: Chest x-ray on 02/27/2018: IMPRESSION: No radiographic evidence of acute pulmonary disease. Disposition Summary Disposition Principal Diagnosis: Alcohol detox Sinus tachycardia Additional Diagnosis: History of ID stage I diastolic filling History of COPD History of anxiety and depression Hyperlipidemia Discharge Disposition: home or self care Discharge Instructions General Discharge Information Code Status: Full Code Patient's Diet: Regular diet Patient's Activity: Self-limited Follow-Up Instructions/Appts: Follow up with pcp in one week. Follow with cardiology in one week. Follow up with [facility] for alcohol detox Don't drink alcohol with ativan and don't drive because of drowsiness. Medications at Discharge Discharge Medications: Stop taking the following medications: Quetiapine Fumarate (Seroquel) 200 MG TABLET ORAL TAKE AT BEDTIME Qty = 30 Metoprolol Tartrate (Metoprolol Tartrate) 25 MG TABLET ORAL DAILY Continue taking these medications: Escitalopram Oxalate (Escitalopram Oxalate) 20 MG TABLET 1 Tablet ORAL DAILY Qty = 30 Comments: Last Taken: 03/04/18 Time: 9:00 AM Aspirin (Aspirin*) 81 MG TAB.CHEW 1 Tablet ORAL DAILY Qty = 30 Comments: Last Taken: 03/04/18 Time: 9:00 AM Gabapentin (Gabapentin) 600 MG TABLET 2 Tablet ORAL TWICE DAILY Qty = 120 Comments: Last Taken: 03/04/18 Time: 9:00 AM Quetiapine Fumarate (Seroquel) 100 MG TABLET 2 Tablet ORAL THREE TIMES DAILY Qty = 90 Comments: Last Taken: 03/04/18 Time: 9:00 AM Atorvastatin Calcium (Lipitor) 40 MG TABLET 1 Tablet ORAL DAILY Comments: Last Taken: 03/03/18 Time: 10:30 PM Fluticasone/Salmeterol (Advair 250-50 Diskus) 250 MCG-50 MCG/DOSE BLST.W.DEV 1 Puff Inhale through mouth TWICE DAILY Comments: Last Taken: 03/04/18 Time: 9:00 AM Tiotropium Pierre (Spiriva) 18 MCG CAP.W.DEV 1 Capsule Inhale through mouth DAILY Comments: Last Taken: 03/04/18 Time: 9:00 AM Start taking the following new medications: LORazepam (Ativan) 1 MG TAB 0 ORAL GIVE ONCE Qty = 5 No Refills Instructions: 1 Tab twice a day 03/04/18 1 tab twice a day on 03/05/18 1 tab once a day on 03/06/18. Comments: Last Taken: 03/04/18 Time: 11:00 AM Metoprolol Tartrate (Metoprolol Tartrate) 25 MG TABLET 1 Tablet ORAL TWICE DAILY Qty = 30 No Refills Comments: Last Taken: 03/04/18 Time: 9:00 AM Copies To: Gretel PANIAGUA,Mariana
[2018-03-03] MEDS ORDERED: METOPROLOL TART25 M1 PO (10:50)
--- NOTE | 2018-03-03 10:56 | Patient Discharge Instructions ---
Discharge Instructions General Discharge Information You were seen/treated for: Alcohol detox Sinus tachycardia Watch for these problems: Anxiety, low energy, nausea, vomiting, abdominal pain, chest pain and light headedness. Special Instructions: Follow up with pcp in one week. Follow with cardiology in one week. Follow up with [facility] for alcohol detox Don't drink alcohol with ativan and don't drive because of drowsiness. Diet Recommended Diet: Regular Activity Activity Self Limited: Yes Acute Coronary Syndrome Inclusion Criteria At DC or during hospital stay patient has or had the following: ACS DIAGNOSIS No Discharge Core Measures Meds if any: Prescribed or Continued at Discharge Meds if any: NOT Prescribed or Continued at Discharge Congestive Heart Failure Inclusion Criteria At DC or during hospital stay patient has or had the following: CHF DIAGNOSIS No Discharge Core Measures Meds if any: Prescribed or Continued at Discharge Meds if any: NOT Prescribed or Continued at Discharge Cerebrovascular accident Inclusion Criteria At DC or during hospital stay patient has or had the following: CVA/TIA Diagnosis No Discharge Core Measures Meds if any: Prescribed or Continued at Discharge Meds if any: NOT Prescribed or Continued at Discharge Venous thromboembolism Inclusion Criteria VTE Diagnosis No VTE Type NONE VTE Confirmed by (Test) NONE Discharge Core Measures - Per Current guidelines, there needs to be overlap - treatment for the first 5 days of Warfarin therapy. - If discharged on Warfarin prior to 5 days of - overlap therapy, the patient will need to be - assessed for post discharge needs including - *Post discharge parental anticoagulation - *Warfarin and/or parental anticoagulation education - *Follow up date to check INR post discharge At least 5 days overlap therapy as Inpatient No Meds if any: Prescribed or Continued at Discharge Note: Overlap Therapy is Warfarin and Anticoagulant Meds if any: NOT Prescribed or Continued at Discharge
--- NOTE | 2018-03-03 11:25 | Cons- Psychiatry ---
Psychiatric Consult Date of Consult: 03/03/18 Reason for Consult: Suicidal ideation History of Present Illness: 57-year-old female presented to the ED on 02/26/2018 at 1753 with a chief complaint of requesting alcohol detox. Per the triage note, she has a history of withdrawal seizures, which she denies during the psychiatric interview. Also, history of stage IV breast cancer with metastases to the brain. She reported suicidal ideation with no plan at the time of presentation. She is followed for psychiatry at [facility] in [place], . Her showcase trimmer is Callie Mercer, and her prescriber is Jacquelin Al APRN. Their fax number is [phone]. Allergies: Coded Allergies: No Known Allergies (06/24/16) Current Medications: Current Medications Sig/John Start time Last Medication Dose Route Stop Time Status Admin Aspirin 81 MG DAILY 02/27 1000 AC 03/03 PO 0915 Atorvastatin Calcium 40 MG AT BEDTIME 02/27 2200 AC 03/02 PO 2154 Budesonide/ 2 PUF BID 02/26 2200 AC 03/03 Formoterol Fumarate INH 0915 Cyanocobalamin 1,000 MCG DAILY 02/28 1000 AC 03/02 IM 1712 Enoxaparin Sodium 40 MG DAILY 02/28 1000 AC 03/03 SC 0916 Ergocalciferol 50,000 IU ONCE A WEEK 02/28 1000 AC 02/28 PO 1604 Escitalopram Oxalate 20 MG DAILY 02/27 1000 AC 03/03 PO 0915 Folic Acid 1 MG DAILY 02/28 1000 AC 03/03 PO 0915 Gabapentin 1,200 MG BID 03/03 1000 AC 03/03 PO 0920 Gabapentin 1,200 MG Q8 02/27 1400 DC 03/03 PO 0528 Lorazepam 1.5 MG Q8 03/03 1400 AC PO Lorazepam 2 MG Q8 03/02 1400 DC 03/03 PO 0528 Lorazepam 0 Q1P PRN 02/27 1115 AC 03/02 IV 0751 Metoprolol Tartrate 25 MG BID 03/01 2200 AC 03/03 PO 0915 Multivitamins 1 TAB DAILY 02/28 1000 AC 03/03 PO 0915 Quetiapine Fumarate 200 MG TID 02/26 2200 AC 03/03 PO 0915 Thiamine HCl 100 MG DAILY 02/28 1000 AC 03/03 PO 0915 Tiotropium Cort[place] 1 PUF DAILY 02/27 1000 AC 03/03 INH 0916 Past History Past Medical History Neurological: NONE EENT: NONE Cardiovascular: CAD Respiratory: COPD, LUNG CANCER Gastrointestinal: NONE Hepatic: NONE Renal: NONE Musculoskeletal: NONE Psychiatric: alcohol dependence, anxiety, depression, substance abuse Endocrine: NONE Blood Disorders: NONE 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, BRAIN STADIUM ATTENDANT/Reproductive: NONE Past Surgical History Surgical History: non-contributory Psychosocial History Strengths/Capabilities: Supportive sponsors, Marylu Garcia and Josie. Physical Limitations (Interventions): None known Psychiatric Treatment History Psych Treatment Psychiatric Treatment Yes Inpatient Treatment No Outpatient Treatment Yes Location of Treatment [facility], [place] Reason for Treatment Anxiety. Dates of Treatment Currently in [place] at [facility] Response to Treatment Unknown Diagnosis: F10.10 Alcohol use disorder, severe, recurrent F41.1 Generalized anxiety d/o, severe F33.2Major depressive d/o, severe, recurrent Rule out substance-induced mood disorder History of benzodiazepine use disorder, severe. Risk Factors: substance abuse Substance Use/Abuse History Drug Use/Abuse Substances Used/Abused Yes Substance Used/Abused Alcohol First Use Not evaluated Last Used PAYMENT SPECIALIST How much used/taken Varies How often Daily For how long 3 days since relapse, per her sponsor Substance Abuse Treatment Substance Abuse Treatment Past Substance Abuse [place] Yes Inpatient Treatment No Outpatient Treatment Yes Location of Treatment [facility] Reason for Treatment Alcohol use disorder Dates of Treatment Currently at [facility] Response to Treatment The patient has had some periods of sobriety. Assessment/Plan Mental Status Orientation: Person, Place, Situation Affect: Anxious, Constricted Speech: WNL Neuro-vegetative: Appetite Decreased, Sleep Disturbance Mental Status Exam: Alert and oriented X 3. Denies AH, VH, TH, and presents no anuel delusions. She denies SI or HI, denies any history of suicide attempt. She reports that she told the staff in the ED that she was suicidal, "because if they discharged me, I was afraid I would hurt myself with alcohol." She scales anxiety as 0/10; depression as 0/10; 10/10 is the worst. She denies hopelessness, helplessness, worthlessness, guilty feelings. Lab Results: Laboratory Tests 03/03 0607 Hematology CBC w Diff NO MAN DIFF REQ WBC (4.8 - 10.8 /CUMM) 4.7 L RBC (4.20 - 5.40 /CUMM) 3.88 L Hgb (12.0 - 16.0 G/DL) 10.3 L Hct (37 - 47 %) 31.6 L MCV (81.0 - 99.0 FL) 81.6 MCH (27.0 - 31.0 PG) 26.5 L MCHC (33.0 - 37.0 G/DL) 32.5 L RDW (11.5 - 14.5 %) 17.6 H Plt Count (130 - 400 /CUMM) 267 MPV (7.4 - 10.4 FL) 8.1 Gran % (42.2 - 75.2 %) 58.7 Lymphocytes % (20.5 - 51.1 %) 18.7 L Monocytes % (1.7 - 9.3 %) 16.0 H Eosinophils % (0 - 5 %) 5.7 H Basophils % (0.0 - 2.0 %) 0.9 Absolute Granulocytes (1.4 - 6.5 /CUMM) 2.7 Absolute Lymphocytes (1.2 - 3.4 /CUMM) 0.9 L Absolute Monocytes (0.10 - 0.60 /CUMM) 0.7 H Absolute Eosinophils (0.0 - 0.7 /CUMM) 0.3 Absolute Basophils (0.0 - 0.2 /CUMM) 0 Diffential Diagnosis: F10.10 Alcohol use disorder, severe, recurrent F41.1 Generalized anxiety d/o, severe F33.2Major depressive d/o, severe, recurrent Rule out substance-induced mood disorder History of benzodiazepine use disorder, severe. Impression: The patient reports that she made her suicidal statement in the ED, because she was afraid that if she was discharged to home, she would hurt herself with alcohol, but denies this in a suicidal meaning. She is not currently suicidal and denies any history of suicide attempt. She is not psychotic, nor delirious, and does not need the 1:1 sitter for suicidality at this time. The patient lives with her daughter, Kimberley, and she does not want me to contact the daughter. She did sign ROIs for her AA sponsor, Marylu Gloria and her DIGITAL SALES EXECUTIVE at [facility], Jacquelin Al. Jacquelin Al APRN confirmed her medications as: Quetiapine 200 mg PO at bedtime Quetiapine 100 mg PO 3X/day Escitalopram 20 mg PO daily Gabapentin 1200 mg PO 2X/day Per Ms. Al, the chief diagnoses are major depressive disorder, severe; generalized anxiety disorder, severe; alcohol use disorder; history of benzodiazepine use disorder. I will change the quetiapine dosing to agree with her outpatient orders, as it is 100 mg total daily dosing. Also, the patient may take the third 100 mg dose at bedtime, for a total bedtime dose of 300 mg, and not 200 mg, as currently ordered. TC to her sponsor, Marylu Gloria, who has known the patient for 20 years: She has no knowledge of suicide attempt, nor seizures. The patient only drank for 3 days this time, and called for help, which is a sign of improvement. Marylu has no concerns for the patient's safety if she discharges to home. The patient has a sister in [place] and a brother, who is local and has health issues. The patient and her brother are trying to manage their mother, who lives alone and has dementia. The patient "Doesn't know how to turn things down," and becomes distressed by events she cannot control. She tends to isolate when things go wrong. The patient has another sponsor, Josie, who is a daily phone and text contact for her. Marylu has less contact, but discusses larger issues with the patient. Marylu german the patient needs an Intensive Outpatient Program. Provisional Treatment Plan: 1. The sitter may be needed for other reasons, but is not needed for suicidality at this time. The patient has made a verbal safety contract. 2. I have changed the lorazepam alcohol detox taper to conform to the current protocol. She will receive lorazepam 1 mg PO one-time dose for 03/03/18 @ 1900, then begin Lorazepam 1 mg q 6 hour dosing 03/03/18 @ 2359 for 3 doses, then begin Lorazepam 0.5 mg PO q 6 hours 03/04/18 @ 1800 for 5 doses, then stop. If the patient's CIWA scores and VS worsen, please advise, and we will hold the taper. Hold scheduled lorazepam for oversedation or respiratory depression. 3. Social work consult to arrange an IOP appointment at [facility], where she is currently seen. 4. Please order a new EKG. The last on 02/27/[address] 104 bpm, QTc 433 mS. 5. Hold quetiapine if QTc greater than 475 mS, and call psychiatry consult service. 6. I have changed the quetiapine orders to agree with her home medications: Quetiapine 200 mg PO at bedtime Quetiapine 100 mg PO 3X/day She will receive 300 mg at bedtime. We will continue to follow along with you. Thank you for this consult.
[2018-03-03 14:27] VITALS: BP 110/60
[2018-03-03 21:15] VITALS: BP 82/65
[2018-03-04 01:00] VITALS: BP 106/60
[2018-03-04 06:49] VITALS: BP 108/60
--- NOTE | 2018-03-04 07:00 | PN- Housestaff ---
DonnieCherry 03/04/18 0700: Subjective Follow-up For: Alcohol detox Sinus tachy (resolved) Tele-Events Since Last Visit: sr with HR 83-104 Subjective: Remained afebrile. Seen and examined this morning. Patient denied any chest pain, short of breath, nausea, vomiting, fever, dysuria. Patient is being discharged today and she was follow [facility]. Review of Systems Constitutional: Reports: see HPI. Objective Last 24 Hrs of Vital Signs/I&O Vital Signs Date Time Temp Pulse Resp B/P B/P Pulse O2 O2 Flow FiO2 Mean Ox Delivery Rate 03/04 0856 98 128/70 04/ 0854 98 128/70 / 0800 97.9 93 18 108/60 04/03 0649 97.9 95 18 108/60 98 Room Air / 0100 106/60 04/02 2235 90/50 / 2115 98.1 93 16 82/65 98 Room Air / 1427 99.6 94 20 110/60 94 Room Air Intake & Output 03/04 1600 03/04 0800 03/04 0000 Intake Total 360 120 Output Total Balance 360 120 Intake, Oral 360 120 Patient 158 lb Weight Physical Exam General Appearance: Alert, Oriented X3, Cooperative, No Acute Distress Skin: No Rashes Sepsis Skin Exam (color): Normal for Ethnicity HEENT: Atraumatic, PERRLA, EOMI Neck: Supple Cardiovascular: Normal S1, Normal S2 Lungs: Clear to Auscultation Abdomen: Soft, No Tenderness Neurological: Normal Speech, Strength at 5/5 X4 Ext, Normal Tone, Sensation Intact Extremities: No Edema Assessment/Plan Assessment: 57 YO F with PMH of alcohol abuse with multiple detox, history of anxiety/ depression, emphysema not on home oxygen, metastatic lung cancer to the brain status post craniotomy and chemotherapy at 2014 currently on remission, history of WI, stage I diastolic dysfunction, presented to emergency department requesting alcohol detox. Following the patient on telemetry floor for following problems: Alcohol detox: -Continue CIWA protocol Ativan PRN. -Ativan 1mg Q8 -Supplemental vitamin B12, folic acid and thiamine -IV Zofran when necessary -Patient is being discharged today. Suicidal ideation: -Sitter was discontinued as recommended by psych. -Patient will follow [facility] after discharge. Hypotension due to hypovolemia:(Resolved) -Probably due to dehydration due to low oral intake and drinking. -Encourage oral intake. currently eating/drinking well. Sinus tachycardia with nonspecific EKG changes: (Resolved) -Most likely due to dehydration or withdrawal. -Metoprolol 12.5 mg twice a day was increased to 25mg bid. -Continue aspirin -f/u Cardio consult History of WI with stage I diastolic dysfunction: -Continue aspirin -Continue metoprolol 25mg twice a day History of COPD: -Continue Spiriva -Continue Advair -Nebulization treatment as needed History of anxiety depression: -Continue Seroquel -Continue escitalopram History of hyperlipidemia: -Continue Lipitor DVT Prophylaxis: -Mechanical and subcutaneous Lovenox CODE STATUS: Full code Problem List: 1. Alcohol withdrawal 2. Tachycardia Pain Ratin Pain Location: none Pain Goal: Remain pain free Pain Plan: pain pathway Tomorrow's Labs & Rationales: none Darlene Moore MD 03/04/18 1127: Attending MD Review Statement Attending Statement Attending MD Statement: examined this patient, discuss w/resident/PA/FRICTION WELDING MACHINE OPERATOR, agreed w/resident/PA/FRICTION WELDING MACHINE OPERATOR, reviewed EMR data (avail) Attending Assessment/Plan: 57F PMH alcohol abuse with multiple detox, history of anxiety/depression, COPD, metastatic lung cancer to the brain status post craniotomy and chemotherapy at 2013 currently on remission, CAD s/p WI, HFpEF admitted with alcohol withdrawal delirium, persistent sinus tachycardia. Patient is much improved. Her CIWA scores have been well controlled and she has not required any PRN Ativan for 48 hours. She is awake and alert, no signs of withdrawal, and feels well. 1. Alcohol withdrawal delirium 2. Sinus tachycardia Plan - Stable for discarge home - Has her own behavioral health follow up, as well as scheduled [facility] - Will complete Ativan taper at home with 1mg PO, 2 more today (received one already), 2 tomorrow, 1 on - Continue home medications - Continue Metoprolol - PCP Follow up
[2018-03-04 08:00] VITALS: BP 108/60
[2018-03-04 08:54] VITALS: BP 128/70
[2018-03-04 08:56] VITALS: BP 128/70
[2018-03-04] MEDS ORDERED: ATIVAN1 M1 PO ×2 (10:16→10:27)
== END 2018-03-04 12:45 | DRG 897 ==
LOC: ERH 17:12 → 1NO 02-27 09:55 → ERHI 02-27 09:55 → ENRESERV 02-27 14:09 → ENTRNSPT 02-27 15:35 → EDTRNSPTSTS 02-27 15:41 → 1NO 02-27 15:52 → CMPTRNSPT 02-27 16:09 → 1NO 02-28 08:10 → ENPENDDIS 03-04 10:49 → ENTRNSPT 03-04 12:40 → EDTRNSPTSTS 03-04 12:41 → EDTRNSPT 03-04 12:41 → 1NO 03-04 12:45 → CMPTRNSPT 03-04 12:58
PROVIDERS: Internal Medicine; Physician Assistant Medical; Student in an Organized Health Care Education/Training Program
DX: F10.239 Alcohol dependence with withdrawal, unspecified (principal); I50.32 Chronic diastolic (congestive) heart failure; I95.9 Hypotension, unspecified; R45.851 Suicidal ideations; Y90.6 Blood alcohol level of 120-199 mg/100 ml; Z85.118 Personal history of other malignant neoplasm of bronchus and lung; R00.0 Tachycardia, unspecified; E86.1 Hypovolemia; F41.9 Anxiety disorder, unspecified; F32.9 Major depressive disorder, single episode, unspecified; I25.2 Old myocardial infarction; J43.9 Emphysema, unspecified; Z92.21 Personal history of antineoplastic chemotherapy; Z85.841 Personal history of malignant neoplasm of brain; Z79.82 Long term (current) use of aspirin; I25.10 Atherosclerotic heart disease of native coronary artery without angina pectoris; Z87.891 Personal history of nicotine dependence; D72.829 Elevated white blood cell count, unspecified; R94.31 Abnormal electrocardiogram [ECG] [EKG]
CPT/HCPCS: 1NP; 36415; 36592; 71045; 80307; 81001; 82436; 87086; 93005; 93010; 96361; 96374; 96375; 96376; 99232; G0480; J1650; J2405; J3420; J3490

== ENCOUNTER 2018-04-11 06:44 | Inpatient (IN) | payer OTHER, MEDICARE ==
[2018-04-11] VITALS (11 sets, daily range): BP systolic 88–142; BP diastolic 50–84
[~2018-04-11] VITALS: Ht 162.6 cm; Wt 72.1 kg
[~2018-04-11 06:44] MED LIST changes: +ADVAIR 250-501 EACH INH; +GABAPENTIN600 M1 PO; +LIPITOR40 M1 PO; +SEROQUEL100 M1 PO; +SEROQUEL200 M1 PO
--- NOTE | 2018-04-11 07:30 | ED PSYCHIATRIC COMPLAINT ---
History of Present Illness General Chief Complaint: ETOH/Drug Related Complaint Stated Complaint: DETOX FROM ALCOHOL Source: patient Exam Limitations: poor historian Vital Signs & Intake/Output Vital Signs & Intake/Output Vital Signs Date Time Temp Pulse Resp B/P B/P Pulse O2 O2 Flow FiO2 Mean Ox Delivery Rate 04/12 0832 110 140/90 04/12 0711 100 22 04/12 0700 97.7 111 16 138/98 96 04/12 0000 93 Room Air 04/11 2000 118 142/96 04/11 1942 4.0 04/11 1816 120 16 108/78 04/11 1800 120 16 108/78 04/11 1619 115 16 130/80 04/11 1532 99.0 124 20 130/80 04/11 1452 99.0 108 20 138/80 95 Room Air 04/11 1443 99.0 110 20 130/80 96 Room Air 04/11 1438 99.0 110 20 130/50 ED Intake and Output 04/12 0000 04/11 1200 Intake Total 1350.5 Output Total Balance 1350.5 Intake, IV 510.5 Intake, Oral 840 Number 1 Bowel Movements Patient 162 lb 150 lb Weight Weight Bed scale Reported by Patient Measurement Method Allergies Coded Allergies: No Known Allergies (04/11/18) Reconcile Medications Aspirin (Aspirin*) 81 MG TAB.CHEW 1 TAB PO DAILY HEART HEALTH Atorvastatin Calcium (Lipitor) 40 MG TABLET 1 TAB PO DAILY CHOLESTEROL ( Reported) Escitalopram Oxalate 20 MG TABLET 1 TAB PO DAILY MENTAL HEALTH (Reported) Fluticasone/Salmeterol (Advair 250-50 Diskus) 250 MCG-50 MCG/DOSE BLST.W.DEV 1 PUF INH BID COPD (Reported) Gabapentin 600 MG TABLET 2 TAB PO BID ANXIETY (Reported) Metoprolol Tartrate 25 MG TABLET 1 TAB PO DAILY HEART (Reported) Quetiapine Fumarate (Seroquel) 200 MG TABLET 1 TAB PO QPM MENTAL HEALTH ( Reported) Quetiapine Fumarate (Seroquel) 100 MG TABLET 1 TAB PO TID MENTAL HEALTH ( Reported) Tiotropium St[place] (Spiriva) 18 MCG CAP.W.DEV 1 CAP INH DAILY COPD (Reported) Triage Note: PT TO ED FOR C/C OF ETOH DETOX. PT IS A BINGE DRINKER, LAST DRINK APPROX 3 HOURS AGO WHICH WAS APPROX 1 NIP. DENIES SEIZURE HISTORY WITH DETOX. DENIES SI/HI. PT HYPOTENSIVE AND TACHYCARDIC IN TRIAGE. Triage Nurses Notes Reviewed? yes HPI: Patient presents for evaluation of alcohol dependence and need for "detox". Patient states that she is a binge drinker and has been this way for years. She states her current binges about one week. She states she drinks at least a pint of vodka daily. Her last alcohol intake was 2 AM. Her last detox was about 2 months ago. She has no specific complaint other than beginning to feel alcohol withdrawal symptoms, including shakiness. She denies a history of withdrawal seizures. Past History Travel History Traveled to [place] past 21 day No Medical History Any Pertinent Medical History? 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 No Review of Systems Review of Systems Constitutional: Reports: no symptoms. EENTM: Reports: no symptoms. Respiratory: Reports: no symptoms. Cardiovascular: Reports: no symptoms. GI: Reports: no symptoms. Genitourinary: Reports: no symptoms. Musculoskeletal: Reports: no symptoms. Skin: Reports: no symptoms. Neurological/Psychological: Reports: see HPI. Hematologic/Endocrine: Reports: no symptoms. Immunologic/Allergic: Reports: no symptoms. All Other Systems: Reviewed and Negative Physical Exam Physical Exam General Appearance: SEE BELOW Neurological/Psychiatric: SEE BELOW Comments: Gen.: Well-nourished, well-developed, no acute respiratory distress. Mildly disheveled appearing. Head: Normocephalic, atraumatic. Eyes: Normal inspection bilaterally Ears: Normal inspection bilaterally Nose: Normal inspection Throat/mouth : Moist mucosa Neck: Supple, full range of motion, no goiter Heart: Regular rate and rhythm, no murmurs rubs or gallops Lungs: Clear to auscultation bilaterally with normal air entry Chest: Nontender Back: Normal range of motion Abdomen: Soft, nontender, nondistended, normal bowel sounds Extremities: Normal range of motion grossly, equal radial pulses, no cyanosis clubbing or edema Neurologic: Cranial nerves grossly intact, speech is clear Skin: warm and dry Psychiatric: Calm, cooperative, no apparent delusions or hallucinations SAD PERSONS Done? patient not suicidal Progress Differential Diagnosis: ALCOHOL INTOXICATION, ALCOHOL WITHDRAWAL, DEHYDRATION, ELECTROLYTE ABNORMALITY Plan of Care: Orders Procedure Date/time Status BASIC ELECTROLYTES PLUS BUN&CR 04/12 0600 Complete TROPONIN LEVEL 04/11 182 Complete EKG 04/11 182 Active TOTAL TRIODOTHYROXINE 04/11 07 Complete THYROXINE 04/11 07 Complete Lab Add-on Test 04/11 UNK Active SOCIAL WORK CONSULT 04/11 UNK Active Current Medications Sig/John Start time Last Medication Dose Stop Time Status Admin Atorvastatin Calcium 40 MG 1700 04/12 1700 AC (Lipitor) Aspirin 81 MG DAILY 04/12 0900 AC 04/12 (Aspirin) 0832 Enoxaparin Sodium 40 MG DAILY 04/12 0900 AC 04/12 (Lovenox) 0834 Escitalopram Oxalate 20 MG DAILY 04/12 0900 AC 04/12 (Lexapro) 0832 Folic Acid 1 MG DAILY 04/12 0900 AC 04/12 (Folic Acid) 0832 Metoprolol Tartrate 25 MG DAILY 04/12 0900 CAN (Lopressor) Multivitamins 1 TAB DAILY 04/12 0900 AC 04/12 (Theragran Vitamins) 0834 Thiamine HCl 100 MG DAILY 04/12 0900 AC 04/12 (Vitamin B1) 0833 Tiotropium [place] 1 PUF DAILY 04/12 0900 AC 04/12 (Spiriva) 0833 Lorazepam 2 MG Q8 04/11 2200 CAN (Ativan) Budesonide/ 2 PUF BID 04/11 2100 AC 04/12 Formoterol Fumarate 0833 (Symbicort) Gabapentin 1,200 MG BID 04/11 2100 AC 04/12 (Neurontin) 0832 Magnesium Oxide 800 MG BID 04/11 2100 AC 04/12 (Mag-Ox) 0832 Quetiapine Fumarate 200 MG QPM 04/11 2100 AC 04/11 (Seroquel) 1957 Acetaminophen 650 MG Q6P PRN 04/11 194 AC 04/11 (Tylenol) 194 Chlordiazepoxide HCl 25 MG Q6 04/11 1800 AC 04/12 (Librium) 1259 Lorazepam See Dose Q1P PRN 04/11 1430 AC 04/12 (Ativan) Insts (1) 0711 Quetiapine Fumarate 100 MG TID 04/11 1400 AC 04/12 (Seroquel) 1259 Metoprolol Tartrate 25 MG BID 04/11 0904 AC 04/12 (Lopressor) 0832 Dose Instructions: (1)Lorazepam (Ativan): See admin criteria Laboratory Tests 04/12/18 0620: Anion Gap 7, Estimated GFR > 60, BUN/Creatinine Ratio 30.0 H 04/11/18 1850: Troponin I < 0.01 Comments: 04/11/2018 8:49:33 AM patient decided to leave the emergency department and had her IV removed. I was able to speak with her prior to her physically leaving the emergency department and have convinced her to stay given her tachycardia. 04/11/2018 10:12:[address] aguiar, cardiac cath 2017 nl, echo nl. hx takasubo. Patient has unfortunately canceled four of her last 5 visits, the cause of her tachycardia is somewhat unclear. Given the persistent tachycardia, patient's case discussed with the hospitalist and Dr. Aguiar. Departure Departure Disposition: STILL A PATIENT Condition: Stable Clinical Impression Primary Impression: Tachycardia Secondary Impressions: Alcohol dependence Referrals: Mariana Majano MD (PCP/Family) Departure Forms: Customer Survey General Discharge Information Admission Note Spoke With: Darlene Moore MD Documentation of Exam: Documentation of any treatments & extenuating circumstances including Concerns Regarding Discharge (functional status, medication knowledge or non-compliance, living conditions, etc.) that warrant an admission rather than observation: Patient presents for evaluation of a high heart rate. Upon arrival to the emergency department the patient was hypotensive and tachycardic. Although her blood pressure has now normalized with IV fluids she remains persistently tachycardic, the etiology of which is unclear. Patient admits to binge drinking alcohol and is currently been binging vodka over the past week. Although alcohol withdrawal can manifest as tachycardia, the patient presented hypotensive and I feel this is inconsistent with acute alcohol withdrawal. I do not feel this patient is a good candidate for outpatient management given her tendency to binge drink and her tachycardia which I feel will compromised her ability to comply with outpatient treatment. I feel she requires hospitalization for continuous cardiac monitoring and serial EKGs and troponins. I feel she should also be given intravenous fluids given her good response to IV fluids in the emergency department. Cardiology consultation and echocardiogram should be considered to more thoroughly evaluate the possible cardiac cause for her tachycardia. If the patient begins to manifest other signs and symptoms of acute alcohol withdrawal and treatment with Ativan should be considered. I feel the patient will require a multiple day hospitalization. Critical Care Note Critical Care Note Critical Care Time: 30-74 min
[2018-04-11 08:10] LABS: ABSOLUTE BASOPHIL COUNT 0 /CUMM (0.0-0.2); ABSOLUTE EOSINOPHIL COUNT 0 /CUMM (0.0-0.7); ABSOLUTE GRANULOCYTE CT 3.2 /CUMM (1.4-6.5); ABSOLUTE MONOCYTE COUNT 0.5 /CUMM (0.10-0.60); BASOPHIL % 0.7 % (0.0-2.0); EOSINOPHIL % 0.5 % (0-5); GRANULOCYTE % 66.9 % (42.2-75.2); MEAN CORPUSCULAR HGB CONC 32.3 G/DL (33.0-37.0); MEAN CORPUSCULAR VOLUME 80.5 FL (81.0-99.0); MEAN PLATELET VOLUME 8.3 FL (7.4-10.4); PLATELET COUNT 343 /CUMM (130-400); RBC DISTRIBUTION WIDTH 16.5 % (11.5-14.5); RED BLOOD CELL CT 4.72 /CUMM (4.20-5.40); WHITE BLOOD CELL COUNT 4.8 /CUMM (4.8-10.8)
[2018-04-11] MEDS ORDERED: SEROQUEL200 M1 PO (08:10)
[2018-04-11] MEDS ORDERED: METOPROLOL TART25 M1 PO (08:11)
--- NOTE | 2018-04-11 13:16 | History & Physical ---
Srinivasan Crisostomo MD 04/11/18 5234: General Information and HPI MD Statement: I have seen and personally examined TRAN AGUILLON and documented this H&P. The patient is a 57 year old F who presented with a patient stated chief complaint of alcohol detox. Source of Information: patient, old records Exam Limitations: no limitations History of Present Illness: 57 year old female with past medical history significant for partial thyroidectomy, anxiety and depression, COPD/emphysema, metastatic lung cancer with brain metastases diagnosed in 2013 s/p craniotomy and chemotherapy ( reportedly in remission, followed by Dr. Bah at [facility]), alcohol dependence presents requesting detoxification. She denies a history of alcohol withdrawal seizures. Her last detox was approximately two months ago. She drinks approximately 1 pint of vodka daily and her last drink was 04/11/18 0200. She states she previously had sobriety from 9877-1215 but has relapsed on and off since that time. She failed to follow up at [facility] after her recent discharge for EtOH withdrawal. She states she wasn't able to contact her mother and eventually found her at home, with a CVA, hospitalization, and recent . She states her father was hospitalized for non EtOH CHF and mother CVA simultaneously and blames this as her most recent relapse trigger. She hasn't been to an AA meeting in months but is contact with her sponsor and other members who are aware she is now in the hospital. The patient was previously here for alcohol detoxification and was also tachycardic on that admission. The patient was evaluated by Dr. Rowell of cardiology at that time. According to the chart there was a reported history of diastolic dysfunction and prior OH. The patient apparently has failed to follow up with Dr. Rowell for numerous outpatient appointments. She had some hypokineses on echocardiogram in 2016 and a negative cardiac catheterization in 2017 consistent with Takasubo cardiomyopathy. Her most recent echocardiogram was relatively unremarkable with normal LVEF. She quit smoking in 2013 at the time of her cancer diagnosis. She states she is feeling very anxious with some subjective dyspnea attributed to anxiety. She is minimally tremulous and reports palpitations without chest pain. She has some constipation and poor PO intake. She denies fevers, chills, cough, abdominal pain, nausea, vomiting, diarrhea, melena, hematochezia, or any other complaints. In the ED, she was tachycardic to 148, mildly hypotensive 88/66, treated with crystalloid bolus, banana bag, and 25mg po metoprolol, and admitted to telemetry for further management. Allergies/Medications Allergies: Coded Allergies: No Known Allergies (04/11/18) Home Med list Aspirin (Aspirin*) 81 MG TAB.CHEW 1 TAB PO DAILY HEART HEALTH Atorvastatin Calcium (Lipitor) 40 MG TABLET 1 TAB PO DAILY CHOLESTEROL ( Reported) Escitalopram Oxalate 20 MG TABLET 1 TAB PO DAILY MENTAL HEALTH (Reported) Fluticasone/Salmeterol (Advair 250-50 Diskus) 250 MCG-50 MCG/DOSE BLST.W.DEV 1 PUF INH BID COPD (Reported) Gabapentin 600 MG TABLET 2 TAB PO BID ANXIETY (Reported) Metoprolol Tartrate 25 MG TABLET 1 TAB PO DAILY HEART (Reported) Quetiapine Fumarate (Seroquel) 200 MG TABLET 1 TAB PO QPM MENTAL HEALTH ( Reported) Quetiapine Fumarate (Seroquel) 100 MG TABLET 1 TAB PO TID MENTAL HEALTH ( Reported) Tiotropium [place] (Spiriva) 18 MCG CAP.W.DEV 1 CAP INH DAILY COPD (Reported) Compliance With Home Meds: FAIR Past History Travel History Traveled to [place] past 21 day No Medical History Neurological: NONE EENT: NONE Cardiovascular: CAD Respiratory: COPD, LUNG CANCER Gastrointestinal: NONE Hepatic: NONE Renal: NONE Musculoskeletal: NONE Psychiatric: alcohol dependence Endocrine: NONE Blood Disorders: NONE 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 Ambulation: independent IADLs Independent: shopping, housework, finances, food prep, telephone, transportation , medication admin. Review of Systems Review of Systems Constitutional: Denies: chills, diaphoresis, fever, malaise, weakness. EENTM: Reports: no symptoms. Cardiovascular: Reports: palpitations. Denies: chest pain. Respiratory: Reports: short of breath. Denies: cough, sputum production, wheezing. GI: Reports: constipation. Denies: abdominal pain, diarrhea, melena, vomiting. Genitourinary: Denies: dysuria, frequency. Musculoskeletal: Reports: no symptoms. Skin: Reports: no symptoms. Neurological/Psychological: Reports: anxiety. Denies: weakness. Hematologic/Endocrine: Reports: no symptoms. Immunologic/Allergic: Reports: no symptoms. All Other Systems: Reviewed and Negative Exam & Diagnostic Data Last 24 Hrs of Vital Signs/I&O Vital Signs Date Time Temp Pulse Resp B/P B/P Pulse O2 O2 Flow FiO2 Mean Ox Delivery Rate 04/11 1241 98.4 115 21 136/81 95 Nasal 0.5L Cannula 04/11 1234 98.3 111 20 136/81 04/11 1043 98.0 116 18 142/84 96 Room Air Room Air 04/11 1034 98.4 116 18 142/84 04/11 0911 98.6 124 20 114/74 04/11 0834 98.6 124 20 114/74 04/11 0834 98.6 124 20 114/74 98 Room Air 04/11 0717 98 Room Air 04/11 0700 96.3 130 16 88/66 04/11 0658 96.3 148 15 / 94 Room Air Room Air Intake & Output 04/11 1600 04/11 0800 04/11 0000 Intake Total Output Total Balance Patient 68.039 kg Weight Weight Reported by Patient Measurement Method Physical Exam General Appearance Alert, Oriented X3, Cooperative, No Acute Distress, minimally tremulous Cardiovascular Normal S1, Normal S2, No Murmurs, tachycardic Lungs Clear to Auscultation, Normal Air Movement Abdomen Normal Bowel Sounds, Soft, No Tenderness, No Masses Extremities No Clubbing, No Cyanosis, No Edema, Normal Pulses Last 24 Hrs of Labs/Bhavin: Laboratory Tests 04/11/18 1004: Urine Opiates Screen < 100, Methadone Screen 100, Barbiturate Screen < 60, Ur Phencyclidine Scrn < 6.00, Amphetamines Screen 165, U Benzodiazepines Scrn 118, Urine Cocaine Screen < 50, Urine Cannabis Screen < 5.00 04/11/18 0730: Magnesium Cancelled 04/11/18 0711: Anion Gap 19 H, Estimated GFR > 60, BUN/Creatinine Ratio 28.6 H, Glucose 152 H, Calcium 9.4, Magnesium 1.7, Total Bilirubin 0.3, AST 18, ALT 23, Alkaline Phosphatase 86, Troponin I < 0.01, Total Protein 6.9, Albumin 4.3, Globulin 2.6, Albumin/Globulin Ratio 1.7, Lipase 52, TSH 5.550 H, D-Dimer High Sensitivty < 200, CBC w Diff NO MAN DIFF REQ, RBC 4.72, MCV 80.5 L, MCH 26.0 L, MCHC 32.3 L, RDW 16.5 H, MPV 8.3, Gran % 66.9, Lymphocytes % 21.6, Monocytes % 10.3 H, Eosinophils % 0.5, Basophils % 0.7, Absolute Granulocytes 3.2, Absolute Lymphocytes 1.0 L, Absolute Monocytes 0.5, Absolute Eosinophils 0, Absolute Basophils 0, Serum Alcohol 79.0 Diagnostic Data EKG Results sinus tachycardia HR [address] segment changes probably rate related Other Results CONCLUSIONS Normal size left ventricle. Normal left ventricular wall thickness. Normal left ventricular ejection fraction visually estimated at 60 Abnormal relaxation filling pattern of the left ventricle for age (stage 1 diastolic dysfunction). Trace mitral regurgitation. Trace tricuspid regurgitation. Trace pulmonic regurgitation. Dwain Birmingham M.D. (Electronically Signed) Final Date: 03 September 2017 Assessment/Plan Assessment: 57 year old female with PMH of emphysema, lung cancer with mets to the brain s/p craniotomy and chemotherapy, alcohol dependence presents requesting detoxification and is noted to be tachycardia on arrival with mild hypotension. EtOH withdrawal: last drink approximately 12 hours ago CIWA protocol Standing Ativan 2mg q8h Ativan prn per CIWA protocol Social work consultation for aftercare planning Banana bag in the ED, start multivitamin, thiamine, and folate tomorrow Tachycardia: in the setting of alcohol withdrawal Monitor on telemetry Check serial troponins and EKGs for myocardial ischemia Consider cardiology consultation with Dr. Rowell Continue beta hammad, metoprolol 25mg po bid May need to increase beta blockade as blood pressure allows after EtOH withdrawal Echocardiogram in 09/2017 showed normal LVEF but prior echo in 06/2016 showed a borderline LVEF 50% with aypokinetic apex, anterior wall, and septum, and reportedly negative cardiac cath consistent with Takatsubo cardiomyopathy. Continue aspirin and statin COPD: Not oxygen dependent Continue spiriva and symbicort Depression/Anxiety: Continue Quetiapine 100mg PO TID and 200 mg PO qhs Continue Lexapro 20mg PO daily and gabapentin 1200mg po bid Heart healthy diet DVT ppx-lovenox 40mg subcutaneous daily Full code As Ranked By This Provider Problem List: 1. Hypotension 2. Tachycardia 3. Alcohol dependence 4. Alcohol withdrawal Core Measures/Misc (08/18) Acute Coronary Syndrome ACS Diagnosis: No Congestive Heart Failure Congestive Heart Failure Diagnosis No Cerebrovascular Accident CVA/TIA Diagnosis: No VTE (View Protocol) VTE Risk Factors Age>40 No Mechanical VTE Prophylaxis d/t N/A MechProphylax Ordered No VTE Pharm Prophylaxis d/t NA PharmProphylax ordered Sepsis (View protocol) Sepsis Present: No Darlene Moore MD 04/11/18 1337: Attending MD Review Statement Attending Statement Attending MD Statement: examined this patient, discuss w/resident/PA/EMERGENCY DEPARTMENT CLINICIAN, agreed w/resident/PA/EMERGENCY DEPARTMENT CLINICIAN, reviewed EMR data (avail) Attending Assessment/Plan: 57F PMH anxiety, depression, COPD, metastatic lung cancer with brain metastases s/p craniotomy and chemotherapy (reportedly in remission, followed by Dr. Bah at [facility]), alcohol dependence presenting for alcohol detox, last drink 2am, drinks >1L daily, now anxious, mildly agitated, mildly tremulous, and persistently tachycardic 120-150. No EKG changes, labs unremarkable, exam benign aside from mild tremor. 1. Alcohol withdrawal without delirium 2. Persistent sinus tachycardia 3. Dehydration Plan - Admit to telemetry - IV hydration - Librium 25mg q6h - Ativan PRN CIWA - Monitor electrolytes - Continue home meds - DVT PPx Carroll Kumra 04/11/18 1610: Resident Review Statement Resident Statement: examined this patient, discussed with media intern, agreed with media intern, reviewed EMR data (avail) Other Findings: 57-year-old woman former smoker with past medical history of alcohol use disorder with multiple detox attempts, history of withdrawal seizures, last detox was approximately two months ago history of anxiety/depression, emphysema not on home oxygen, metastatic lung cancer to the brain status post craniotomy and chemotherapy at 2013 currently on remission, partial thyroidectomy, history of OH, stage I diastolic dysfunction, history of Takasubo cardiomyopathy cardiomyopathy with negative cardiac cath in 2017 presented to emergency department requesting alcohol detox. She failed to follow up at [facility] after her recent discharge for EtOH withdrawal. On that admission she was evaluated she drinks approximately 1 pint of vodka daily and her last drink was 04/11/18 0200. On interview denies fevers, chills, cough, abdominal pain, nausea, vomiting, diarrhea, melena, hematochezia. Vitals on admission, afebrile, heart rate 140-120s, blood pressure 88/66>130/ 80, RR 20 Exam as above. Labs pertinent for sodium 145, potassium 3.6, chloride 103, carbon dioxide 23, and anion gap 19, BUN 20, creatinine 0.7, glucose 152, magnesium 1.7,TSH 5.55, T4 5.1,T3 0.93, Serum ETOH 79 Echocardiogram: 09/02/2017 Normal left ventricular ejection fraction visually estimated at 60 %. Normal left ventricular wall motion. Abnormal relaxation filling pattern of the left ventricle for age (stage 1 diastolic dysfunction). Assessment/Plan: Tachycardia: At this time will attribute her tachycardia to her withdrawal, given her cardiac history will admit to tele floor for continuous cardiac monitoring. Will trend trop and EKG replete electrolytes as needed Borderline TSH elevation with normal T4, likely sick euthyroid. Metoprolol 25mg po bid as BP allows Continue aspirin and statin Alcohol Withdrawal Place on CIOK protocol, Libruim 25mg Depression/Anxiety: Continue Quetiapine 100mg PO TID and 200 mg PO qhs Continue Lexapro 20mg PO daily and gabapentin 1200mg po bid Heart healthy diet DVT ppx-lovenox 40mg subcutaneous daily Full code
--- NOTE | 2018-04-12 00:33 | PN- Housestaff ---
Subjective Follow-up For: Alcohol withdrawal Tachycardia Subjective: Seen and examined patient this morning. She was sitting in bed. States that she is feeling better since starting Librium. Denies shortness of breath, chest pain, palpitations. Review of Systems Constitutional: Denies: chills, diaphoresis, fever, malaise, weakness, unexplained weight loss. Cardiovascular: Denies: chest pain, edema, orthopena, palpitations, peripheral edema, syncope. Respiratory: Denies: cough, hemoptysis, orthopnea, short of breath, sputum production, stridor, wheezing. Objective Last 24 Hrs of Vital Signs/I&O Vital Signs Date Time Temp Pulse Resp B/P B/P Pulse O2 O2 Flow FiO2 Mean Ox Delivery Rate 04/12 0832 110 140/90 04/12 0711 100 22 04/12 0700 97.7 111 16 138/98 96 04/12 0000 93 Room Air 04/11 2000 118 142/96 04/11 1942 4.0 04/11 1816 120 16 108/78 04/11 1800 120 16 108/78 04/11 1619 115 16 130/80 04/11 1532 99.0 124 20 130/80 04/11 1452 99.0 108 20 138/80 95 Room Air 04/11 1443 99.0 110 20 130/80 96 Room Air 04/11 1438 99.0 110 20 130/50 04/11 1430 Room Air 04/11 1241 98.4 115 21 136/81 95 Nasal 0.5L Cannula 04/11 1234 98.3 111 20 136/81 04/11 1043 98.0 116 18 142/84 96 Room Air Room Air 04/11 1034 98.4 116 18 142/84 Intake & Output 04/12 1600 04/12 0800 04/12 0000 Intake Total 250 1350.5 Output Total Balance 250 1350.5 Intake, IV 510.5 Intake, Oral 250 840 Number 1 Bowel Movements Patient 162 lb Weight Physical Exam General Appearance: Alert, Oriented X3, Cooperative, No Acute Distress Cardiovascular: Regular Rate, Normal S1, Normal S2 Lungs: Normal Air Movement Current Medications: Current Medications Sig/John Start time Last Medication Dose Route Stop Time Status Admin Acetaminophen 650 MG Q6P PRN 04/11 1945 AC 04/11 PO 1941 Aspirin 81 MG DAILY 04/12 09 AC 04/12 PO 0832 Atorvastatin Calcium 40 MG 1700 04/12 1700 AC PO Budesonide/ 2 PUF BID 04/11 2100 AC 04/12 Formoterol Fumarate INH 0833 Chlordiazepoxide HCl 25 MG Q6 04/11 1800 AC 04/12 PO 0634 Cyanocobalamin/ 1 BAG DAILY 04/11 1355 DC Thiamine/Pyridoxine IV Dextrose/Water 1,000 ML Cyanocobalamin/ 1 BAG ONCE ONE 04/11 1030 DC 04/11 Thiamine/Pyridoxine IV 04/11 1829 1053 Sodium Chloride 1,000 ML Enoxaparin Sodium 40 MG DAILY 04/12 0900 AC 04/12 SC 0834 Escitalopram Oxalate 20 MG DAILY 04/12 0900 AC 04/12 PO 0832 Folic Acid 1 MG DAILY 04/12 0900 AC 04/12 PO 0832 Gabapentin 1,200 MG BID 04/11 2100 AC 04/12 PO 0832 Gabapentin 0 .STK-MED ONE 04/11 1220 DC PO Gabapentin 1,200 MG ONCE ONE 04/11 1215 DC 04/11 PO 04/11 1216 1216 Lorazepam 2 MG Q8 04/11 2200 CAN PO Lorazepam See Dose Q1P PRN 04/11 1430 AC 04/12 Insts (1) IV 0711 Magnesium Oxide 800 MG BID 04/11 2100 AC 04/12 PO 0832 Magnesium Oxide 800 MG ONE TIME ONE 04/11 1845 DC 04/11 PO 04/11 1846 1838 Metoprolol Tartrate 25 MG DAILY 04/12 0900 CAN PO Metoprolol Tartrate 25 MG BID 04/11 0904 AC 04/12 PO 0832 Multivitamins 1 TAB DAILY 04/12 0900 AC 04/12 PO 0834 Quetiapine Fumarate 200 MG QPM 04/11 2100 AC 04/11 PO 1957 Quetiapine Fumarate 100 MG TID 04/11 1400 AC 04/12 PO 0833 Quetiapine Fumarate 0 .STK-MED ONE 04/11 1220 DC PO Quetiapine Fumarate 100 MG ONCE ONE 04/11 1215 DC 04/11 PO 04/11 1216 1216 Sodium Chloride 1,000 ML BOLUS ONE 04/11 0900 DC 04/11 IV 04/11 0959 0909 Thiamine HCl 100 MG DAILY 04/12 0900 AC 04/12 PO 0833 Tiotropium [place] 1 PUF DAILY 05/12 0900 AC 04/12 INH 0833 Dose Instructions: (1)Lorazepam: See admin criteria Last 24 Hrs of Lab/Bhavin Results Last 24 Hrs of Labs/Mics: Laboratory Tests 04/12/18 0620: Anion Gap 7, Estimated GFR > 60, BUN/Creatinine Ratio 30.0 H 04/11/18 1850: Troponin I < 0.01 04/11/18 1004: Urine Opiates Screen < 100, Methadone Screen 100, Barbiturate Screen < 60, Ur Phencyclidine Scrn < 6.00, Amphetamines Screen 165, U Benzodiazepines Scrn 118, Urine Cocaine Screen < 50, Urine Cannabis Screen < 5.00 Assessment/Plan Assessment: 57-year-old woman former smoker with past medical history of alcohol use disorder with multiple detox attempts, history of withdrawal seizures, last detox was approximately two months ago history of anxiety/depression, emphysema not on home oxygen, metastatic lung cancer to the brain status post craniotomy and chemotherapy at 2014 currently on remission, partial thyroidectomy, history of [place], stage I diastolic dysfunction, history of Takasubo cardiomyopathy cardiomyopathy with negative cardiac cath in 2017 admitted for alcohol withdrawal, being observed in the telemetry floor for tachycardia Assessment/Plan: Tachycardia: HR 100s trop neg x2 and no acute EKG changes noted replete electrolytes as needed Borderline TSH elevation with normal T4, likely sick euthyroid. Metoprolol 25mg po bid as BP allows Continue aspirin and statin Alcohol Withdrawal Continue CIWA protocol, Libruim 25mg q6 Depression/Anxiety: Continue Quetiapine 100mg PO TID and 200 mg PO qhs Continue Lexapro 20mg PO daily and gabapentin 1200mg po bid Heart healthy diet DVT ppx-lovenox 40mg subcutaneous daily Full code Problem List: 1. Tachycardia 2. Alcohol withdrawal Pain Ratin Pain Location: Not applicable Pain Goal: Pain 4 or less Pain Plan: None required Tomorrow's Labs & Rationales: none required
[2018-04-12 07:00] VITALS: BP 138/98
[2018-04-12 08:00] VITALS: BP 140/80
--- NOTE | 2018-04-12 08:28 | PN- Att Addend ---
Attending Addendum Attending Brief Note No events overnight on telemetry monitoring. She has been in sinus rhythm with heart rate ranging from 86-90. Occasionally has episodes of sinus tachycardia. Nursing staff reports that overnight she gets very anxious requesting for her Ativan. She has required 2 doses of as needed Ativan IV since admission. CIWA score was charted as 0 overnight however she is up to 8 this morning. Patient seen and examined. Lying comfortably in bed. Patient admits to recent alcohol binge and. She reports that following her last hospitalization for alcohol withdrawal she found her mother did in her apartment. Mother had not been seen for a few days. She feels very guilty about the loss of her mom and resorted to alcohol binging. Vital Signs Date Time Temp Pulse Resp B/P B/P Pulse O2 O2 Flow FiO2 Mean Ox Delivery Rate 04/12 0711 100 22 04/12 0700 97.7 111 16 138/98 96 04/12 0000 93 Room Air 04/11 2000 118 142/96 04/11 1942 4.0 04/11 1816 120 16 108/78 04/11 1800 120 16 108/78 04/11 1619 115 16 130/80 04/11 1532 99.0 124 20 130/80 04/11 1452 99.0 108 20 138/80 95 Room Air 04/11 1443 99.0 110 20 130/80 96 Room Air 04/11 1438 99.0 110 20 130/50 04/11 1430 Room Air 04/11 1241 98.4 115 21 136/81 95 Nasal 0.5L Cannula 04/11 1234 98.3 111 20 136/81 04/11 1043 98.0 116 18 142/84 96 Room Air Room Air 04/11 1034 98.4 116 18 142/84 04/11 0911 98.6 124 20 114/74 04/11 0834 98.6 124 20 114/74 04/11 0834 98.6 124 20 114/74 98 Room Air General appearance: Well-developed and not in any acute distress. HEENT: Anicteric, no pallor, pupils equal and reactive. Neck: Supple with no jugular venous distention. Heart: S1-S2 regular with no audible murmur. Lungs: Adequate and symmetric air entry bilaterally with no added sounds. Abdomen: Nondistended with normal bowel sounds. Soft, nontender with no palpable masses. Extremities: No pedal edema. No cyanosis. No tremors. Skin: Intact Laboratory Tests 04/12/18 0620: Anion Gap 7, Estimated GFR > 60, BUN/Creatinine Ratio 30.0 H 04/11/18 1850: Troponin I < 0.01 04/11/18 1004: Urine Opiates Screen < 100, Methadone Screen 100, Barbiturate Screen < 60, Ur Phencyclidine Scrn < 6.00, Amphetamines Screen 165, U Benzodiazepines Scrn 118, Urine Cocaine Screen < 50, Urine Cannabis Screen < 5.00 Problems: 1. Alcohol withdrawal syndrome 2. Sinus tachycardia 3. Debridement 4. History of anxiety and depression 5. COPD 6. History of lung cancer and brain cancer; reportedly in remission. She is scheduled for PET scan on 04/15/2018. Plan: -Continue current benzodiazepine therapy. -Continue IV hydration. -Recommend consultation with the social work service for help with debridement. -Continue on Lexapro for her depression. Continue Seroquel which she takes 3 times a day and at bedtime. -Continue her bronchodilator regimen. -She had an extensive cardiac workup during the previous admission. She was started on the beta-hammad during the last admission. It is unclear if patient was compliant with his medication. Sinus tachycardia is also likely secondary to her withdrawal. Obtain echocardiogram to rule out any tachycardia induced cardiomyopathy. Please recall the cardiology service.
[2018-04-12 12:00] VITALS: BP 130/70
[2018-04-12 13:50] VITALS: BP 130/80
[2018-04-12 22:00] VITALS: BP 112/76
[2018-04-12 22:56] VITALS: BP 112/76
[2018-04-13] VITALS (7 sets, daily range): BP systolic 96–160; BP diastolic 70–92
[2018-04-13 06:02] LABS: ABSOLUTE BASOPHIL COUNT 0 /CUMM (0.0-0.2); ABSOLUTE EOSINOPHIL COUNT 0.3 /CUMM (0.0-0.7); ABSOLUTE GRANULOCYTE CT 2.3 /CUMM (1.4-6.5); ABSOLUTE MONOCYTE COUNT 0.6 /CUMM (0.10-0.60); GRANULOCYTE % 53.8 % (42.2-75.2); MEAN CORPUSCULAR HGB 25.5 PG (27.0-31.0); MEAN CORPUSCULAR HGB CONC 31.7 G/DL (33.0-37.0); MEAN CORPUSCULAR VOLUME 80.5 FL (81.0-99.0); MEAN PLATELET VOLUME 7.9 FL (7.4-10.4); PLATELET COUNT 308 /CUMM (130-400); RBC DISTRIBUTION WIDTH 15.9 % (11.5-14.5); RED BLOOD CELL CT 3.92 /CUMM (4.20-5.40); WHITE BLOOD CELL COUNT 4.3 /CUMM (4.8-10.8)
[2018-04-13 06:22] LABS: HEMATOCRIT 31.5 % (37-47)
--- NOTE | 2018-04-13 08:23 | PN- Housestaff ---
Subjective Follow-up For: Alcohol Withdrawal Tachycardia Complaints: no complaints Tele-Events Since Last Visit: NSR/1st degree AVB with HR 93-97. No overnight events. Subjective: patient was seen and examined at bedside. She reports feeling better. Has no complaints other than anxiety. States she has a PET scan on Saturday at [facility] which she does not want to miss and if she is stay here till then she would like to have that rescheduled. Review of Systems Constitutional: Reports: no symptoms. Neurological/Psychological: Reports: anxiety. Objective Last 24 Hrs of Vital Signs/I&O Vital Signs Date Time Temp Pulse Resp B/P B/P Pulse O2 O2 Flow FiO2 Mean Ox Delivery Rate 04/13 0819 90 118/64 04/13 0800 98.4 90 20 130/70 04/13 0736 98.0 90 24 118/76 95 Room Air 04/12 2256 98.3 111 30 112/76 97 04/12 2225 110 112/76 04/12 2200 98.0 110 18 112/76 Intake & Output 04/13 1600 04/13 0800 04/13 0000 Intake Total 275 350 Output Total Balance 275 350 Intake, Oral 275 350 Number 1 Bowel Movements Patient 165 lb Weight Physical Exam General Appearance: Alert, Oriented X3, Cooperative, No Acute Distress Skin: No Rashes, No Breakdown Skin Temp/Moisture Exam: Warm/Dry Sepsis Skin Exam (color): Normal for Ethnicity HEENT: Atraumatic Cardiovascular: Normal S1, Normal S2, No Murmurs Lungs: Clear to Auscultation, Normal Air Movement Abdomen: Soft, No Tenderness Neurological: Normal Speech Extremities: No Edema Last 24 Hrs of Lab/Bhavin Results Last 24 Hrs of Labs/Mics: Laboratory Tests 04/13/18 0535: Anion Gap 5, Estimated GFR > 60, BUN/Creatinine Ratio 40.0 H, Magnesium 2.1, CBC w Diff NO MAN DIFF REQ, RBC 3.92 L, MCV 80.5 L, MCH 25.5 L, MCHC 31.7 L, RDW 15.9 H, MPV 7.9, Gran % 53.8, Lymphocytes % 22.8, Monocytes % 14.4 H, Eosinophils % 8.0 H, Basophils % 1.0, Absolute Granulocytes 2.3, Absolute Lymphocytes 1.0 L, Absolute Monocytes 0.6, Absolute Eosinophils 0.3, Absolute Basophils 0 Assessment/Plan Assessment: 57-year-old woman former smoker with past medical history of alcohol use disorder with multiple detox attempts, history of withdrawal seizures, last detox was approximately two months ago history of anxiety/depression, emphysema not on home oxygen, metastatic lung cancer to the brain status post craniotomy and chemotherapy at 2014 currently on remission, partial thyroidectomy, history of [place], stage I diastolic dysfunction, history of Takasubo cardiomyopathy presented to the ED for alcohol detox. She was admitted to telemetry floor for monitoring of tachycardia. Assessment and Plan: Sinus Tachycardia: * Resolved today. Off tele now. Can be downgraded to gen med. * trop neg x2 with no acute EKG changes noted * Mild TSH elevation with normal T4 and low T3. Likely subclinical hyperthyroidism. * Continue Metoprolol 25mg po bid as BP allows * Continue aspirin and statin Alcohol Withdrawal * Continue IV Ativan per CIWA protocol * Taper Libruim 25mg q8 * Continue Thiamine, Folic Acid, multivitamins Borderline Microcytosis: * MCV of 80.5 * will check iron studies History of Depression/Anxiety: * Continue Quetiapine 100mg PO TID and 200 mg PO qhs * Continue Lexapro 20mg PO daily and gabapentin 1200mg po bid Regular diet DVT ppx-lovenox 40mg subcutaneous daily Full code Problem List: 1. Alcohol withdrawal Pain Ratin Pain Location: none Pain Goal: Remain pain free Pain Plan: none Tomorrow's Labs & Rationales: CBC, BEP, Mg
--- NOTE | 2018-04-13 08:32 | PN- Att Addend ---
Attending Addendum Attending Brief Note Patient seen and examined. Resting comfortably unless in any acute distress. No issues overnight reported by nursing staff. Remains in sinus rhythm with no events on telemetry monitoring. She is no longer tachycardic this morning. This morning she is anxious about being able to undergo surveillance PET scan on Saturday. CIWA score is improving. She only received 2 mg of IV Ativan yesterday in addition to her standing dose of Librium. Denies nausea vomiting. Denies abdominal pain. Denies chest pain or palpitations. Vital Signs Date Time Temp Pulse Resp B/P B/P Pulse O2 O2 Flow FiO2 Mean Ox Delivery Rate 04/13 0819 90 118/64 04/13 0736 98.0 90 24 118/76 95 Room Air 04/12 2256 98.3 111 30 112/76 97 04/12 2225 110 112/76 04/12 2200 98.0 110 18 112/76 04/12 1350 98.3 102 20 130/80 96 04/12 1200 130/70 04/12 0832 110 140/90 General appearance: Well-developed and not in any acute distress. HEENT: Anicteric, no pallor, pupils equal and reactive. Neck: Supple with no jugular venous distention. Heart: S1-S2 regular with no audible murmur. Lungs: Adequate and symmetric air entry bilaterally with no added sounds. Abdomen: Nondistended with normal bowel sounds. Soft, nontender. Extremities: No pedal edema. No cyanosis. Laboratory Tests 04/13/18 0535: Anion Gap 5, Estimated GFR > 60, BUN/Creatinine Ratio 40.0 H, CBC w Diff NO MAN DIFF REQ, RBC 3.92 L, MCV 80.5 L, MCH 25.5 L, MCHC 31.7 L, RDW 15.9 H, MPV 7.9, Gran % 53.8, Lymphocytes % 22.8, Monocytes % 14.4 H, Eosinophils % 8.0 H, Basophils % 1.0, Absolute Granulocytes 2.3, Absolute Lymphocytes 1.0 L, Absolute Monocytes 0.6, Absolute Eosinophils 0.3, Absolute Basophils 0 Problems: 1. Alcohol withdrawal syndrome 2. Sinus tachycardia; resolved 3. Bereavement 4. History of anxiety and depression 5. COPD 6. History of lung cancer and brain cancer; reportedly in remission. She is scheduled for PET scan on 04/15/2018. 7. Abnormal TSH. Plan: -Taper down Librium to 25 mg orally every 8 hours. -Discontinue telemetry monitoring. Obtain echocardiogram. -Discontinue IV hydration. -rice farmworker consultation in a.m. -Continue on Lexapro for her depression. Continue Seroquel which she takes 3 times a day and at bedtime. -Hemoglobin level is at her baseline. She does have microcytosis. Check iron profile.
[2018-04-14 06:00] VITALS: BP 116/86
[2018-04-14 08:31] VITALS: BP 116/86
[2018-04-14 08:31] LABS: ABSOLUTE BASOPHIL COUNT 0 /CUMM (0.0-0.2); ABSOLUTE EOSINOPHIL COUNT 0.3 /CUMM (0.0-0.7); ABSOLUTE GRANULOCYTE CT 2.4 /CUMM (1.4-6.5); ABSOLUTE LYMPH COUNT 0.9 /CUMM (1.2-3.4); ABSOLUTE MONOCYTE COUNT 0.7 /CUMM (0.10-0.60); BASOPHIL % 0.5 % (0.0-2.0); EOSINOPHIL % 7.5 % (0-5); GRANULOCYTE % 55.3 % (42.2-75.2); HEMATOCRIT 32.6 % (37-47); MEAN CORPUSCULAR HGB 25.5 PG (27.0-31.0); MEAN CORPUSCULAR HGB CONC 31.3 G/DL (33.0-37.0); MEAN CORPUSCULAR VOLUME 81.5 FL (81.0-99.0); MEAN PLATELET VOLUME 8.1 FL (7.4-10.4); PLATELET COUNT 267 /CUMM (130-400); WHITE BLOOD CELL COUNT 4.3 /CUMM (4.8-10.8)
--- NOTE | 2018-04-14 09:08 | Patient Discharge Instructions ---
Discharge Instructions General Discharge Information You were seen/treated for: Alcohol withdrawal Sinus tachcardia Anxiety/depression Watch for these problems: Anxiety, chest pain, palpitation, shortness of breath, nausea, vomiting, abdominal pain, diarrhea, light headedness and altered mental status. If you experience any of these symptoms please come to ED or call to pcp. Special Instructions: Follow up with pcp in one week. Follow up with [facility] for alcohol dependency. -Pt has an intake with IOP This SaturdayApril 16 at 2:00. [phone] Diet Recommended Diet: Regular Activity Activity Self Limited: Yes Acute Coronary Syndrome Inclusion Criteria At DC or during hospital stay patient has or had the following: ACS DIAGNOSIS No Discharge Core Measures Meds if any: Prescribed or Continued at Discharge Meds if any: NOT Prescribed or Continued at Discharge Congestive Heart Failure Inclusion Criteria At DC or during hospital stay patient has or had the following: CHF DIAGNOSIS No Discharge Core Measures Meds if any: Prescribed or Continued at Discharge Meds if any: NOT Prescribed or Continued at Discharge Cerebrovascular accident Inclusion Criteria At DC or during hospital stay patient has or had the following: CVA/TIA Diagnosis No Discharge Core Measures Meds if any: Prescribed or Continued at Discharge Meds if any: NOT Prescribed or Continued at Discharge Venous thromboembolism Inclusion Criteria VTE Diagnosis No VTE Type NONE VTE Confirmed by (Test) NONE Discharge Core Measures - Per Current guidelines, there needs to be overlap - treatment for the first 5 days of Warfarin therapy. - If discharged on Warfarin prior to 5 days of - overlap therapy, the patient will need to be - assessed for post discharge needs including - *Post discharge parental anticoagulation - *Warfarin and/or parental anticoagulation education - *Follow up date to check INR post discharge At least 5 days overlap therapy as Inpatient No Meds if any: Prescribed or Continued at Discharge Note: Overlap Therapy is Warfarin and Anticoagulant Meds if any: NOT Prescribed or Continued at Discharge
--- NOTE | 2018-04-14 11:45 | Cons- Psychiatry ---
Psychiatric Consult Date of Consult: 04/14/18 Reason for Consult: etoh aftercare Allergies: Coded Allergies: No Known Allergies (04/11/18) Past History Past Medical History Neurological: NONE EENT: NONE Cardiovascular: CAD Respiratory: COPD, LUNG CANCER Gastrointestinal: NONE Hepatic: NONE Renal: NONE Musculoskeletal: NONE Psychiatric: alcohol dependence Endocrine: PARTIAL THYROIDECTOMY Blood Disorders: NONE 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, BRAIN MONOTYPE CASTER/Reproductive: NONE Past Surgical History Surgical History: BRAIN TUMOR REMOVED Assessment/Plan Impression: Pt seen at 10:45 AM. Chart reviewed. Spoke with resident. This pt is a 57 yo F w/ PMH partial thyroidectomy, COPD, metastatic lung cancer with brain metastases diagnosed in 2013 s/p craniotomy no in remission past psych hx anxiety and depression, alcohol use d/o who was a walk in to the ED c/o requesting detoxification. She has been binge drinking up 12 nips several days a week for many months. She waits for the liquor store to open in the am because she anxious. Last drink 04/11/18. No WD seizures. She has two sponsors but has not been to meetings. She is under increased stress due to the loss of her mother due to CVA--pt found her mother feels guilty--pending PET scan for mets from her cancer. She has a brain lesion being followed and she needs f/u MRIs. She complains of DAVIS and anxiety when she is winded. In the ED vitals HR 148, BP 88/66. She was given crystalloid, a banana bag, metoprolol and admitted to telemetry. Laboratory Tests 04/14/18 0705: Anion Gap 8, Estimated GFR > 60, BUN/Creatinine Ratio 31.4 H, Magnesium 2.1, CBC w Diff NO MAN DIFF REQ, RBC 4.00 L, MCV 81.5, MCH 25.5 L, MCHC 31.3 L, RDW 16.0 H, MPV 8.1, Gran % 55.3, Lymphocytes % 21.1, Monocytes % 15.6 H, Eosinophils % 7.5 H, Basophils % 0.5, Absolute Granulocytes 2.4, Absolute Lymphocytes 0.9 L, Absolute Monocytes 0.7 H, Absolute Eosinophils 0.3, Absolute Basophils 0 Med Hx: See above Past psych HX: Treatment for alcohol X 3 [place] ; CVH x 1. Has med trials on paxil, zoloft, imipramine; previously on xanax, ativan. FH: Father with anxiety SH: Lives with her daughter who is 40 y/o. Things a re well at home. She is too anxious to drive so stays local. Home Med list Aspirin (Aspirin*) 81 MG TAB.CHEW 1 TAB PO DAILY HEART HEALTH Atorvastatin Calcium (Lipitor) 40 MG TABLET 1 TAB PO DAILY CHOLESTEROL ( Reported) Escitalopram Oxalate 20 MG TABLET 1 TAB PO DAILY MENTAL HEALTH (Reported) Fluticasone/Salmeterol (Advair 250-50 Diskus) 250 MCG-50 MCG/DOSE BLST.W.DEV 1 PUF INH BID COPD (Reported) Gabapentin 600 MG TABLET 2 TAB PO BID ANXIETY (Reported) Metoprolol Tartrate 25 MG TABLET 1 TAB PO DAILY HEART (Reported) Quetiapine Fumarate (Seroquel) 200 MG TABLET 1 TAB PO QPM MENTAL HEALTH ( Reported) Quetiapine Fumarate (Seroquel) 100 MG TABLET 1 TAB PO TID MENTAL HEALTH ( Reported) Tiotropium [place] (Spiriva) 18 MCG CAP.W.DEV 1 CAP INH DAILY COPD (Reported) Compliance With Home Meds: FAIR MSE: Pt is a middle aged female sitting in bed dressed in casual clothes talking on phone. There are no motor abnormalities. Her speech is clear with normal rate and rhythm. Mood: "the anxiety makes me depressed" affect full range; euthymic. Thought process is circumstantial; content include anxious cognitions, guilt. She reports she is able to function but anxiety is aroused by going up stairs and feeling winded. She has upcoming scans that worry her constantly. She feels grief and guilt over her mother's . A/ This is a 57 y/o F with multiple medical problems including lung cancer with brain mets now in remission who has a hx of anxiety and depression who presented requesting etoh detox and c/o multiple anxiety provoking stressors. Pt is on lexapro, gabapentin and seroquel and is amenable to IOP P/ -Pt has an intake with IOP This SaturdayApril 16 at 2:00. [phone] -Would not d/c on benzodiazepines or she will not be a candidate for above -IOP will address her medications -Counseled concerning slowly increasing her cardiovascular endurance to help her mood and to decrease her anxiety exacerabations -She is interested in starting buspar Please call with any questions. [facility][phone]
--- NOTE | 2018-04-14 12:03 | PN- Housestaff ---
Subjective Follow-up For: Alcohol withdrawal Sinus tachycardia(resolved) Anxiety/depression Subjective: No overnight events. Patient remained afebril. She is seen and examined this morning. Patient denied any chest pain, nausea, vomiting, chills, fever, abdominal pain and dysuria. Patient reported having anxiety and shortness of breath sometime on exertion especially related to anxiety. Patient reported that sometimes if she is sitting alone in the room she started to have short of breath. Patient also reported having palpitation in the past. Patient wants to see Dr. Rowell during her hospital stay. Dr. Birmingham saw the patient as he was covering Dr. Rowell today. Dr. Birmingham told me that patient is stable to be discharged cardiac murray. We repeated the EKG that showed first-degree heart block and I spoke to Dr. Birmingham and he agreed to discharge the patient. Review of Systems Constitutional: Denies: chills, malaise, weakness. EENTM: Reports: no symptoms. Cardiovascular: Denies: chest pain, orthopena, palpitations. Respiratory: Reports: see HPI. Gastrointestinal: Denies: abdominal pain, constipation, diarrhea, nausea, vomiting. Genitourinary: Reports: no symptoms. Neurological/Psychological: Reports: anxiety. Objective Last 24 Hrs of Vital Signs/I&O Vital Signs Date Time Temp Pulse Resp B/P B/P Pulse O2 O2 Flow FiO2 Mean Ox Delivery Rate 04/14 0831 91 116/86 04/14 0600 97.5 91 20 116/86 97 04/13 2158 98.2 105 20 96/70 95 Room Air 04/13 1815 97.5 103 20 160/92 04/13 1815 97.5 103 20 160/92 94 Room Air 04/13 1400 84 130/70 04/13 1400 98.1 103 20 118/78 96 Intake & Output 04/14 1600 04/14 0800 04/14 0000 Intake Total 100 200 Output Total Balance 100 200 Intake, Oral 100 200 Patient 159 lb Weight Weight Bed scale Measurement Method Physical Exam General Appearance: Alert, Oriented X3, Cooperative Skin Temp/Moisture Exam: Warm/Dry Sepsis Skin Exam (color): Normal for Ethnicity HEENT: Atraumatic, PERRLA, EOMI Neck: Supple Cardiovascular: Normal S1, Normal S2 Lungs: Clear to Auscultation Abdomen: Soft, No Tenderness Neurological: Normal Speech, Strength at 5/5 X4 Ext, Normal Tone Extremities: No Edema Assessment/Plan Assessment: 57 YO F former smoker with PMH of alcohol use disorder with multiple detox attempts, history of withdrawal seizures, last detox was approximately two months ago history of anxiety/depression, emphysema not on home oxygen, metastatic lung cancer to the brain status post craniotomy and chemotherapy at 2014 currently on remission, partial thyroidectomy, history of [place], stage I diastolic dysfunction, history of Takasubo cardiomyopathy presented to the ED for alcohol detox. She was admitted to telemetry floor for monitoring of tachycardia. We're following the patient on general medicine floor for following problems: Alcohol detox: -Her CIWA score remains low. This morning her CIWA was 6. Patient is not getting any additional doses. Patient's symptoms are more likely due to anxiety. -We will taper her Librium and plan to discharge her today. -Continue thiamine, folic acid, vitamin B-12 supplementation. Sinus tachycardia:(resolved) -Patient sinus tachycardia has been resolved. Probably it was due to her alcohol withdrawal symptoms and anxiety. -We will continue her metoprolol -Patient was seen cardiology. They recommended to discharge the patient cardiac murray as she is stable. EKG was done that showed first-degree heart block although she is asymptomatic. Cardiology recommended to discharge the patient. History of anxiety and depression; -Continue her Lexapro -Continue Seroquel -We spoke to psychiatry and they saw the patient this morning. Psychiatry recommended the patient to follow [facility] on Saturday. Psychiatry already scheduled [facility] appointment for her. History of CAD and hyperlipidemia: -Continue her aspirin and Lipitor History of COPD not on home oxygen: -Continue her inhalers DVT prophylaxis: Mechanical and subcutaneous Lovenox CODE STATUS: Full code Problem List: 1. Alcohol withdrawal 2. Tachycardia Pain Ratin Pain Location: none Pain Goal: Remain pain free Pain Plan: pain pathway Tomorrow's Labs & Rationales: none
--- NOTE | 2018-04-14 12:11 | Discharge Summary ---
Visit Information Visit Dates Admission Date: 04/11/18 Discharge Date: 04/14/18 Hospital Course Course Attending Physician: Latrell PANIAGUA,[facility] Primary Care Physician: Gretel PANIAGUA,[place] Course: 57 YO F former smoker with PMH of alcohol use disorder with multiple detox attempts, history of withdrawal seizures, last detox was approximately two months ago history of anxiety/depression, emphysema not on home oxygen, metastatic lung cancer to the brain status post craniotomy and chemotherapy at 2014 currently on remission, partial thyroidectomy, history of [place], stage I diastolic dysfunction, history of Takasubo cardiomyopathy presented to the ED for alcohol detox. She was admitted to telemetry floor for monitoring of tachycardia. ED course: Vitals: Temperature 98.6, heart rate 124, respiratory rate 20, blood pressure 114/74, oxygen saturation 98% on room air. Labs: WBC count 4.8, hemoglobin 12.3, hematocrit 38.0, platelet count 343, sodium 145, potassium 3.6, BUN 20, creatinine 0.7, anion gap 19, BUN/creatinine ratio 28.6, glucose 152, calcium 9.4, magnesium 1.7, AST 18, ALT 23, alkaline phosphatase 86, troponin less than 0.01, TSH 5.550, d-dimer less than 200 Alcohol detox: Patient was admitted for alcohol detox. He was placed on CIWA protocol. She was started on scheduled doses of Librium. Patient was given supplemental thiamine, folic acid and vitamin B-12. Patient received Zofran as needed for nausea and vomiting. Her CIWA score remains low. Patient completed her alcohol detox with tapering dose of Librium and she was discharged home. Patient was instructed to follow her primary care physician and [facility] services for alcohol dependency. Patient wanted to switch IOP from [facility] care to [facility]. Psychiatry spoke to patient and schedule her appointment on Saturday for [facility] on April 16 2 PM. Sinus tachycardia: On admission patient had sinus tachycardia. Serial EKGs and drops were done that for negative for ischemic cardiac injury. Later on patient sinus tachycardia was resolved and her heart rate was within normal limits. Patient was downgraded to general medicine floor. During hospital stay patient remained asymptomatic and hemodynamically stable. Before discharge patient was seen by cardiology and they recommended to repeat EKG that showed first-degree heart block although patient was asymptomatic. Cardiology agreed to discharge the patient and she will follow her regular speech and hearing director as outpatient. History of anxiety and depression: Patient had a history of anxiety and depression. The continued her Lexapro and Seroquel. Patient reported having anxiety even while sitting alone in room. Patient's symptoms were more likely due to anxiety rather than withdrawal. Psych consult was obtained and recommendations were followed. Patient was instructed to follow psychiatry as outpatient and [facility] for further recommendations to control anxiety. History of lung cancer with metastasis to brain: There was suspicion of recurrence of cancer. Patient was scheduled for her PET scan at [facility] on 04/15/2018. Patient wanted to keep her appointment and she was stable without any signs of withdrawal. Patient was discharged to get her PET scan. History of CAD and hyperlipidemia: Continued her aspirin and Lipitor. History of COPD not on home oxygen: Continued her inhalers. DVT prophylaxis: Mechanical and subcutaneous Lovenox CODE STATUS: Full code Allergies: Coded Allergies: No Known Allergies (04/11/18) Pertinent Lab Results: WBC count 4.3, hemoglobin 10.2, hematocrit 32.6, platelet count 267, sodium 143, potassium 4.1, anion gap 8, BUN 22, creatinine 0.7, BUN/creatinine ratio 31.4 Disposition Summary Disposition Principal Diagnosis: Alcohol withdrawal Sinus tachycardia Anxiety/depression Additional Diagnosis: History of CAD and hyperlipidemia History of COPD not on home oxygen History of lung cancer with metastasis to brain Discharge Disposition: home or self care Discharge Instructions General Discharge Information Code Status: Full Code Patient's Diet: Regular diet Patient's Activity: Self-limited Follow-Up Instructions/Appts: Follow up with pcp in one week. Follow up with [facility] for alcohol dependency. Pt has an intake with [facility] this SaturdayApril 16 at 2:00. [phone] Medications at Discharge Discharge Medications: Continue taking these medications: Escitalopram Oxalate (Escitalopram Oxalate) 20 MG TABLET 1 Tablet ORAL DAILY Qty = 30 Comments: LAST GIVEN 04/14/18 @ 0900 Aspirin (Aspirin*) 81 MG TAB.CHEW 1 Tablet ORAL DAILY Qty = 30 Comments: LAST GIVEN 04/14/18 @ 0900 Gabapentin (Gabapentin) 600 MG TABLET 2 Tablet ORAL TWICE DAILY Qty = 120 Comments: LAST GIVEN 04/14/18 @ 0900 Quetiapine Fumarate (Seroquel) 100 MG TABLET 1 Tablet ORAL THREE TIMES DAILY Qty = 90 Comments: LAST GIVEN 04/14/18 @ 0900 Atorvastatin Calcium (Lipitor) 40 MG TABLET 1 Tablet ORAL DAILY Comments: LAST GIVEN 04/13/18 @ 1700 Fluticasone/Salmeterol (Advair 250-50 Diskus) 250 MCG-50 MCG/DOSE BLST.W.DEV 1 Puff Inhale through mouth TWICE DAILY Comments: Last Taken: 03/04/18 Time: 9:00 AM Tiotropium [place] (Spiriva) 18 MCG CAP.W.DEV 1 Capsule Inhale through mouth DAILY Comments: Last Taken: 03/04/18 Time: 9:00 AM Quetiapine Fumarate (Seroquel) 200 MG TABLET 1 Tablet ORAL Every night Qty = 30 Metoprolol Tartrate (Metoprolol Tartrate) 25 MG TABLET 1 Tablet ORAL DAILY Copies To: Gretel PANIAGUA,[place]a
--- NOTE | 2018-04-14 12:30 | Cons- Cardiology ---
General Information and HPI Consulting Request Date of Consult: 04/14/18 Requested By: Latrell PANIAGUA,Josefa Reason for Consult: Sinus tachycardia History of Present Illness: The patient is a 57-year-old female with history of anxiety, metastatic lung cancer, COPD, sinus tachycardia presenting for alcohol detoxification. She was noted on presentation to have sinus tachycardia which she has been noted to have in the past. Heart rate has improved. She is not currently having any cardiac symptoms. No chest pain. No shortness of breath. No syncope. No lightheadedness or dizziness. No nausea or vomiting. Allergies/Medications Allergies: Coded Allergies: No Known Allergies (04/11/18) Home Med List: Aspirin (Aspirin*) 81 MG TAB.CHEW 1 TAB PO DAILY HEART HEALTH Atorvastatin Calcium (Lipitor) 40 MG TABLET 1 TAB PO DAILY CHOLESTEROL ( Reported) Escitalopram Oxalate 20 MG TABLET 1 TAB PO DAILY MENTAL HEALTH (Reported) Fluticasone/Salmeterol (Advair 250-50 Diskus) 250 MCG-50 MCG/DOSE BLST.W.DEV 1 PUF INH BID COPD (Reported) Gabapentin 600 MG TABLET 2 TAB PO BID ANXIETY (Reported) Metoprolol Tartrate 25 MG TABLET 1 TAB PO DAILY HEART (Reported) Quetiapine Fumarate (Seroquel) 200 MG TABLET 1 TAB PO QPM MENTAL HEALTH ( Reported) Quetiapine Fumarate (Seroquel) 100 MG TABLET 1 TAB PO TID MENTAL HEALTH ( Reported) Tiotropium [place] (Spiriva) 18 MCG CAP.W.DEV 1 CAP INH DAILY COPD (Reported) Past History Travel History Traveled to [place] past 21 day No Medical History Neurological: NONE EENT: NONE Cardiovascular: CAD Respiratory: COPD, LUNG CANCER Gastrointestinal: NONE Hepatic: NONE Renal: NONE Musculoskeletal: NONE Psychiatric: alcohol dependence Endocrine: PARTIAL THYROIDECTOMY Blood Disorders: NONE 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 Home Smoking Status: Former Smoker ETOH Use: alcoholic Illicit Drug Use: denies illicit drug use Functional Ability ADLs Independent: dressing, eating, toileting, bathing. Ambulation: independent IADLs Independent: shopping, housework, finances, food prep, telephone, transportation , medication admin. Assessment/Plan Assessment/Plan Assessment: 1. Partial thyroidectomy 2. COPD 3. Metastatic lung cancer 4. Sinus tachycardia, improved Plan: * Check repeat EKG * If no significant abnormality is on EKG, then the patient will be clear for discharge from cardiac standpoint. * Follow up in the office with Dr. Rowell. Consult Acknowledgment - Thank you for your consult request.
--- NOTE | 2018-04-14 13:35 | PN- Att Addend ---
Attending Addendum Attending Brief Note Patient seen and examined. Plan of care discussed with the medical team and the patient. Available lab work and radiology test reports were reviewed. Patient appears anxious. She complains of intermittently getting short of breath at home especially on climbing stairs. She also reports intermittent urgent incontinence of both urine and feces. Exam: General: Patient awake alert oriented without any distress; appears very anxious CVS: S1 plus S2 without any murmur or gallops Chest: Few scattered crepitation without any wheeze. There is no respiratory distress. Abdomen: Soft non-tender, bowel sound present, no guarding or rebound AGRONOMY SPECIALIST: Awake alert oriented without any focal neuro deficit and follows commands appropriately Extremities: No edema; no clubbing or cyanosis noted Assessment * Alcohol abuse and withdrawal * Chronic anxiety and depression * History of CAD * History of hyperlipidemia * History of COPD * History lung cancer with metastases to brain with suspected recurrence, patient currently waiting for a PET scan which is to be done tomorrow Plan * Patient wants to switch her psychiatric care from [facility] to [facility]; patient has been seen by psychiatry here and she will follow with the [facility] program with appointment on April 16 2 PM. * Patient can be discharged home today * Patient will have a PET scan done at [facility] tomorrow Current Medications Sig/John Start time Last Medication Dose Route Stop Time Status Admin Acetaminophen 650 MG Q6P PRN 04/11 1945 DCD 04/13 PO 0820 Aspirin 81 MG DAILY 04/12 0900 DCD 04/14 PO 0831 Atorvastatin Calcium 40 MG 1700 / 1700 DCD 04/13 PO 1718 Budesonide/ 2 PUF BID 04/11 2100 DCD 04/14 Formoterol Fumarate INH 0830 Chlordiazepoxide HCl 25 MG Q8 04/13 1400 DCD 04/14 PO 1244 Enoxaparin Sodium 40 MG DAILY 04/12 0900 DCD 04/14 SC 0831 Escitalopram Oxalate 20 MG DAILY 04/12 0900 DCD 04/14 PO 0840 Folic Acid 1 MG DAILY 04/12 0900 DCD 04/14 PO 0831 Gabapentin 1,200 MG BID 04/11 2100 DCD 04/14 PO 0831 Loperamide HCl 2 MG Q6P PRN 04/13 1300 DCD 04/13 PO 1252 Lorazepam See Dose Q1P PRN 04/11 1430 DCD 04/14 Insts (1) IV 0547 Magnesium Oxide 800 MG BID 04/11 2100 DCD 04/14 PO 0831 Metoprolol Tartrate 25 MG BID 04/11 904 DCD 04/14 PO 0831 Multivitamins 1 TAB DAILY 04/12 900 DCD 04/14 PO 0832 Quetiapine Fumarate 200 MG QPM 04/11 2100 DCD 04/13 PO 2113 Quetiapine Fumarate 100 MG TID 04/11 1400 DCD 04/14 PO 0832 Thiamine HCl 100 MG DAILY 04/12 900 DCD 04/14 PO 0832 Tiotropium [place] 1 PUF DAILY 04/12 900 DCD 04/14 INH 0831 Dose Instructions: (1)Lorazepam: See admin criteria Laboratory Tests 04/14/18 0705: Anion Gap 8, Estimated GFR > 60, BUN/Creatinine Ratio 31.4 H, Magnesium 2.1, CBC w Diff NO MAN DIFF REQ, RBC 4.00 L, MCV 81.5, MCH 25.5 L, MCHC 31.3 L, RDW 16.0 H, MPV 8.1, Gran % 55.3, Lymphocytes % 21.1, Monocytes % 15.6 H, Eosinophils % 7.5 H, Basophils % 0.5, Absolute Granulocytes 2.4, Absolute Lymphocytes 0.9 L, Absolute Monocytes 0.7 H, Absolute Eosinophils 0.3, Absolute Basophils 0 04/13/18 0535: Anion Gap 5, Estimated GFR > 60, BUN/Creatinine Ratio 40.0 H, Magnesium 2.1, Iron 38, TIBC 325, Ferritin 11.0 L, CBC w Diff NO MAN DIFF REQ, RBC 3.92 L, MCV 80.5 L, MCH 25.5 L, MCHC 31.7 L, RDW 15.9 H, MPV 7.9, Gran % 53.8, Lymphocytes % 22.8, Monocytes % 14.4 H, Eosinophils % 8.0 H, Basophils % 1.0, Absolute Granulocytes 2.3, Absolute Lymphocytes 1.0 L, Absolute Monocytes 0.6, Absolute Eosinophils 0.3, Absolute Basophils 0 04/12/18 0620: Anion Gap 7, Estimated GFR > 60, BUN/Creatinine Ratio 30.0 H 04/11/18 1850: Troponin I < 0.01 Vital Signs Date Time Temp Pulse Resp B/P B/P Pulse O2 O2 Flow FiO2 Mean Ox Delivery Rate 04/14 0831 91 116/86 04/14 0600 97.5 91 20 116/86 97 04/13 2158 98.2 105 20 96/70 95 Room Air 04/13 1815 97.5 103 20 160/92 04/13 1815 97.5 103 20 160/92 94 Room Air 04/13 1400 84 130/70 04/13 1400 98.1 103 20 118/78 96 Intake & Output 04/14 1600 04/14 0800 04/14 0000 Intake Total 100 200 Output Total Balance 100 200 Intake, Oral 100 200 Patient 159 lb Weight Weight Bed scale Measurement Method
== END 2018-04-14 13:09 | DRG 897 ==
LOC: ERH 06:44 → 2NB 12:44 → ERHI 12:44 → ENRESERV 13:21 → 2NB 14:08 → ENTRNSPT 14:09 → EDTRNSPT 14:10 → EDTRNSPTSTS 14:10 → 1NO 14:22 → CMPTRNSPT 14:49 → 1NO 20:22 → ENTRNSPT 04-13 17:49 → EDTRNSPTSTS 04-13 18:00 → CMPTRNSPT 04-13 18:17 → 2NB 04-13 19:29
PROVIDERS: Dermatology; Emergency Medicine; Internal Medicine
DX: F10.239 Alcohol dependence with withdrawal, unspecified (principal); I50.30 Unspecified diastolic (congestive) heart failure; I95.9 Hypotension, unspecified; I51.81 Takotsubo syndrome; E78.5 Hyperlipidemia, unspecified; R00.0 Tachycardia, unspecified; Z85.118 Personal history of other malignant neoplasm of bronchus and lung; Z85.841 Personal history of malignant neoplasm of brain; J44.9 Chronic obstructive pulmonary disease, unspecified; Y90.3 Blood alcohol level of 60-79 mg/100 ml; E86.0 Dehydration; F32.9 Major depressive disorder, single episode, unspecified; F41.9 Anxiety disorder, unspecified; Z92.21 Personal history of antineoplastic chemotherapy; Z63.4 Disappearance and death of family member
CPT/HCPCS: 1NP; 2NBSP; 36415; 36592; 80307; 82436; 93005; 93010; 96360; 96361; 96374; 99291; G0480; J1650; J3490

== ENCOUNTER 2018-05-07 21:00 | Inpatient (IN) | payer OTHER, MEDICARE ==
[~2018-05-07] VITALS: Ht 162.6 cm; Wt 72.2 kg
[~2018-05-07 21:00] MED LIST changes: +SEROQUEL400 M1 PO
--- NOTE | 2018-05-07 21:36 | ED PSYCHIATRIC COMPLAINT ---
History of Present Illness General Chief Complaint: ETOH/Drug Related Complaint Stated Complaint: BIBA ETOH/AMS Source: patient, old records, EMS Exam Limitations: no limitations Vital Signs & Intake/Output Vital Signs & Intake/Output Vital Signs Date Time Temp Pulse Resp B/P B/P Pulse O2 O2 Flow FiO2 Mean Ox Delivery Rate / 1000 98.6 127 20 108/59 06/07 0953 98.6 127 20 108/59 96 Room Air 06/07 0945 98.6 127 20 108/59 06/07 0800 100.2 125 20 131/56 06/07 0800 100.2 125 20 131/56 95 Room Air 06/07 0633 98.9 112 16 101/54 94 Room Air 06/07 0520 121 90/68 06/07 0519 90/68 06/07 0515 98.8 123 20 82/51 98 06/07 0459 Room Air 06/07 0321 130 18 06/07 0321 130 18 96 Room Air 06/07 0126 97.5 124 18 138/80 06/07 0126 97.5 124 18 138/80 95 Room Air 06/06 2324 98.7 113 20 151/95 06/06 2324 98.7 113 20 151/95 97 Room Air 06/06 2159 98.8 117 20 167/87 06/06 2137 97 Room Air 06/06 2128 117 20 167/87 95 Room Air 06/06 2106 98.8 126 22 144/95 97 Room Air ED Intake and Output 06/07 0000 06/06 1200 Intake Total 1000 Output Total Balance 1000 Intake, IV 1000 Patient 160 lb Weight Weight Estimated Measurement Method Allergies Coded Allergies: No Known Allergies (04/11/18) Reconcile Medications Aspirin (Aspirin*) 81 MG TAB.CHEW 1 TAB PO DAILY HEART HEALTH Atorvastatin Calcium (Lipitor) 40 MG TABLET 1 TAB PO DAILY CHOLESTEROL ( Reported) Escitalopram Oxalate 20 MG TABLET 1 TAB PO DAILY MENTAL HEALTH (Reported) Fluticasone/Salmeterol (Advair 250-50 Diskus) 250 MCG-50 MCG/DOSE BLST.W.DEV 1 PUF INH BID COPD (Reported) Gabapentin 600 MG TABLET 2 TAB PO BID ANXIETY (Reported) Metoprolol Tartrate 25 MG TABLET 1 TAB PO DAILY HEART (Reported) Quetiapine Fumarate (Seroquel) 200 MG TABLET 1 TAB PO QPM MENTAL HEALTH ( Reported) Quetiapine Fumarate (Seroquel) 100 MG TABLET 1 TAB PO TID MENTAL HEALTH ( Reported) Tiotropium [place] (Spiriva) 18 MCG CAP.W.DEV 1 CAP INH DAILY COPD (Reported) Triage Note: PT BIBA FROM HOME C/C +ETOH/AMS FOUND BY PATIENT'S DAUGHTER. PER EMS PT HAS HX OF ETOH USE S/P PASSING OF HER MOTHER IN RECENT MONTHS. ALSO, HX OF BRAIN TUMOR REMOVED 4 YEARS AGO, HAD RECENT SCAN WITH SUSPICIOUS LESIONS ON ? BRAIN AND LUNG PER EMS. PT NOTED TO BE INCONTINENT UPON ARRIVAL W DRIED FECES ON HER PERSON. ALERT TO SELF ONLY. BREATHALYZED AT 0.132 Triage Nurses Notes Reviewed? yes Onset: Just prior to arrival Duration: constant, continues in ED Timing: recent history Severity: moderate Associated Symptoms: anxiety, impaired concentration, suicidal ideation LMP (ages 10-50): post menopausal : No Patient currently breastfeeds: No HPI: The patient reports falling secondary to alcohol intoxication with no significant injury except for bruising. Prior to admission she was intoxicated with confusion depression and suicidal thoughts requesting alcohol detox. She also complains of productive cough generalized abdominal discomfort after eating nausea. She denies fever chills chest pain shortness of breath headache dysuria rash bleeding. (Eugene Garcia MD) Past History Travel History Traveled to [place] past 21 day No Medical History Any Pertinent Medical History? 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 No (Eugene Garcia MD) Review of Systems Review of Systems Constitutional: Reports: no symptoms. EENTM: Reports: no symptoms. Respiratory: Reports: see HPI, cough, sputum production. Cardiovascular: Reports: no symptoms. GI: Reports: see HPI, abdominal pain, nausea. Genitourinary: Reports: no symptoms. Musculoskeletal: Reports: no symptoms. Skin: Reports: no symptoms. Neurological/Psychological: Reports: see HPI, anxiety, confusion, depressed, emotional problems. Hematologic/Endocrine: Reports: no symptoms. Immunologic/Allergic: Reports: no symptoms. All Other Systems: Reviewed and Negative (Eugene Garcia MD) Physical Exam Physical Exam General Appearance: well developed/nourished, mild distress Head: atraumatic Eyes: Bilateral: PERRL, EOMI. 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 yes 1 Depression/Hopelessness? yes 2 Previous Attempts/Psych Care yes 1 Excessive Ethanol/Drug Use? yes 1 Rational Thinking Loss? yes 2 Single//? yes 1 Social Support? has support 0 Stated Future Intent? yes 2 Total 10 SAD PERSONS Done? yes (Eugene Garcia MD) Progress Differential Diagnosis: drug intoxication, drug overdose, drug withdrawal, electrolyte abnormality, hypoglycemia Plan of Care: Orders Procedure Date/time Status Heart Healthy Diet 05/08 D Active Regular Diet 05/08 B Complete ED Holding Orders 05/08 1113 Active Admit to inpatient 05/08 1113 Active Vital Signs 05/08 1113 Active Code Status 05/08 1113 Active Continuous Observation Monitor 05/08 0525 Active ED CRISIS PSYCH CONSULT 05/08 0219 Active Continuous Observation Monitor 05/08 0125 Active EKG 05/07 2236 Active CIWA 05/07 2135 Active Continuous Observation Monitor 05/07 2129 Active URINE DRUG SCREEN FOR ER ONLY 05/07 2129 Complete MAGNESIUM 05/07 2129 Complete LIPASE 05/07 2129 Complete ETHANOL 05/07 2129 Complete COMPREHENSIVE METABOLIC PANEL 05/07 2129 Complete CBC WITHOUT DIFFERENTIAL 05/07 2129 Complete Current Medications Sig/John Start time Last Medication Dose Stop Time Status Admin Quetiapine Fumarate 100 MG TID 05/08 0959 UNVr 05/08 (Seroquel) 1015 Aspirin 81 MG DAILY 05/08 900 UNVr 05/08 (Aspirin) 0945 Atorvastatin Calcium 40 MG DAILY 05/08 900 UNVr 05/08 (Lipitor) 0945 Escitalopram Oxalate 20 MG DAILY 05/08 900 UNVr 05/08 (Lexapro) 0945 Gabapentin 1,200 MG BID 05/08 900 UNVr 05/08 (Neurontin) 09 Metoprolol Tartrate 25 MG DAILY 05/08 900 UNVr 05/08 (Lopressor) 09 Tiotropium [place] 1 PUF DAILY 05/08 09 AC 05/08 (Spiriva) 09 Lorazepam 1 MG ONCE ONE 05/08 0230 CAN (Ativan) 05/08 0231 Budesonide/ 2 PUF BID 05/07 2300 AC 05/08 Formoterol Fumarate 0945 (Symbicort) Laboratory Tests 05/07/18 2232: Urine Opiates Screen < 100, Methadone Screen 64, Barbiturate Screen < 60, Ur Phencyclidine Scrn < 6.00, Amphetamines Screen < 100, U Benzodiazepines Scrn 237 H, Urine Cocaine Screen < 50, Urine Cannabis Screen < 5.00 05/07/18 2138: Anion Gap 17 H, Estimated GFR > 60, BUN/Creatinine Ratio 23.3, Glucose 104 H, Calcium 9.0, Magnesium 1.7, Total Bilirubin 0.5, AST 26, ALT 30, Alkaline Phosphatase 85, Total Protein 7.1, Albumin 4.1, Globulin 3.0, Albumin/Globulin Ratio 1.4, Lipase 53, CBC w Diff NO MAN DIFF REQ, RBC 5.06, MCV 78.6 L, MCH 25.8 L, MCHC 32.9 L, RDW 15.6 H, MPV 8.1, Gran % 70.6, Lymphocytes % 17.3 L, Monocytes % 9.9 H, Eosinophils % 0.4, Basophils % 1.8, Absolute Granulocytes 4.4, Absolute Lymphocytes 1.1 L, Absolute Monocytes 0.6, Absolute Eosinophils 0 , Absolute Basophils 0.1, Serum Alcohol 129.0 Diagnostic Imaging: Viewed by Me: Radiology Read. Discussed w/RAD: Radiology Read. CXR Impression: Unremarkable examination. Hand-Off Endorsed To: Alphonso Ruiz DO Endorsed Time: 709 Pending: consult (crisis) Comments: Her daughter contact and nursing report she took the keys away from her mother this morning so as not to drive to obtain alcohol. She reports her mother took To the liquor store into the pharmacy picking up her prescription of Seroquel. Her normal mental status is alert and oriented 3 with mild weakness of the right upper extremity. After several hours mental status improved, able to hold conversation. Denies overdose with seroquel. (Eugene Garcia MD) Departure Departure Disposition: STILL A PATIENT Condition: Stable Clinical Impression Primary Impression: Alcohol dependence with intoxication Secondary Impressions: Depression with suicidal ideation Referrals: Mariana Majano MD (PCP/Family) Departure Forms: Customer Survey General Discharge Information (Eugene Garcia MD) Admission Note Spoke With: Jonnathan Roberts MD Documentation of Exam: Documentation of any treatments & extenuating circumstances including Concerns Regarding Discharge (functional status, medication knowledge or non-compliance, living conditions, etc.) that warrant an admission rather than observation: [The patient has severe alcohol withdrawal and depression with suicidal ideation. She will need crisis evaluation as well as CIWA scores and Ativan protocol.] She has a persistent tachycardia and I am concerned that should she be discharged serious adverse events could occur. She has medical and/or psychiatric conditions requiring admission. (Alphonso Ruiz DO)
[2018-05-07 21:52] LABS: ABSOLUTE BASOPHIL COUNT 0.1 /CUMM (0.0-0.2); ABSOLUTE EOSINOPHIL COUNT 0 /CUMM (0.0-0.7); ABSOLUTE GRANULOCYTE CT 4.4 /CUMM (1.4-6.5); ABSOLUTE LYMPH COUNT 1.1 /CUMM (1.2-3.4); ABSOLUTE MONOCYTE COUNT 0.6 /CUMM (0.10-0.60); BASOPHIL % 1.8 % (0.0-2.0); EOSINOPHIL % 0.4 % (0-5); GRANULOCYTE % 70.6 % (42.2-75.2); HEMATOCRIT 39.8 % (37-47); MEAN CORPUSCULAR HGB 25.8 PG (27.0-31.0); MEAN CORPUSCULAR HGB CONC 32.9 G/DL (33.0-37.0); MEAN CORPUSCULAR VOLUME 78.6 FL (81.0-99.0); MEAN PLATELET VOLUME 8.1 FL (7.4-10.4); PLATELET COUNT 390 /CUMM (130-400); RBC DISTRIBUTION WIDTH 15.6 % (11.5-14.5); RED BLOOD CELL CT 5.06 /CUMM (4.20-5.40); WHITE BLOOD CELL COUNT 6.3 /CUMM (4.8-10.8)
[2018-05-07 21:59] VITALS: BP 167/87
--- NOTE | 2018-05-07 22:07 | RADIOLOGY REPORT ---
EXAMINATION: XR CHEST CLINICAL INFORMATION: Productive cough. COMPARISON: Chest x-ray 02/27/2018 TECHNIQUE: 2 views of the chest were obtained. FINDINGS: Lungs are clear. No pulmonary vascular congestion. There is no pleural effusion. The heart size is normal. The cardiac and mediastinal contours are normal. There are calcifications of the thoracic aorta. There are multilevel degenerative changes of dorsal spine. IMPRESSION: Unremarkable examination.
[2018-05-07 23:24] VITALS: BP 151/95
[2018-05-08] VITALS (7 sets, daily range): BP systolic 90–138; BP diastolic 56–80
--- NOTE | 2018-05-08 01:26 | CT SCAN REPORT ---
EXAMINATION: CT HEAD WITHOUT CONTRAST CLINICAL INFORMATION: Alcoholic with falls, altered mental status COMPARISON: 06/24/2016 TECHNIQUE: Contiguous axial imaging was performed from the skull base to vertex without intravenous administration of contrast. DLP: 620.92 mGy-cm FINDINGS: There is no evidence of acute intracranial hemorrhage or territorial infarction. No abnormal mass effect or midline shift is seen. Nelson to white matter differentiation is well preserved. No extra-axial fluid collections are identified. The ventricles are normal in size. There is a redemonstrated region of high right frontal encephalomalacia. Overlying craniotomy changes are again noted. No acute fracture is seen. The mastoid air cells and visualized portions of the paranasal sinuses are well aerated. IMPRESSION: No acute intracranial pathology. Stable postsurgical changes in the high right frontal lobe with overlying craniotomy.
--- NOTE | 2018-05-08 12:12 | History & Physical ---
Hermes Martínez MD 05/08/18 1201: General Information and HPI History of Present Illness: 58-year-old woman with past medical history of EtOH abuse/intoxication, metastatic lung cancer with brain involvement status post craniotomy/radiation/ chemotherapy (2013), new lung tumor followed by oncologist in [place], anxiety /depression followed by [facility], COPD not on oxygen, CAD/IL, and Takosubo cardiomyopathy brought in by ambulance for alcohol intoxication and altered mental status. Patient reportedly had her keys taken away by her daughter yesterday as the daughter "did not want her to go to the liquor store". Patient then took a cab to the liquor store and bought 7 "nips" of Celine vodka and picked up her Seroquel prescription at the pharmacy next door. She reportedly drank all of the alcohol and possibly ingested excessive amounts of Seroquel per emergency room notes; however patient denies this. She was found somnolent and confused by her daughter who called EMS and brought her to the [facility] ED for evaluation. Patient was observed in the ED overnight and treated with intravenous Ativan. At one point in time she expressed that she "wanted to " for which the patient safety monitor was placed. Presently patient states that she feels well , has no complaints, and denies any suicidal/homicidal ideation. She denies a history of alcohol withdrawal seizures, intubation or ICU admission, or ever having had an Ativan drip. Patient was previously admitted to [facility] from 04/11/18-04/14/18 for similar complaints where she was treated with a Librium taper and monitored on telemetry for her sinus tachycardia. She was evaluated by office clerk Dr. Dwain Birmingham whom felt her sinus tachycardia was secondary to her multiple medical problems and should be continued on a beta-hammad. She was discharged home with medication taper and instruction to follow-up with the [facility]. Review of systems She otherwise denies any headache, fever, chills, blurred/double vision, lightheadedness/dizziness, chest pain, palpitations, heartburn, shortness breath , cough, nausea, vomiting, diarrhea, constipation, urinary symptoms. Allergies/Medications Allergies: Coded Allergies: No Known Allergies (04/11/18) Home Med list Aspirin (Aspirin*) 81 MG TAB.CHEW 1 TAB PO DAILY HEART HEALTH Atorvastatin Calcium (Lipitor) 40 MG TABLET 1 TAB PO DAILY CHOLESTEROL ( Reported) Escitalopram Oxalate 20 MG TABLET 1 TAB PO DAILY MENTAL HEALTH (Reported) Fluticasone/Salmeterol (Advair 250-50 Diskus) 250 MCG-50 MCG/DOSE BLST.W.DEV 1 PUF INH BID COPD (Reported) Gabapentin 600 MG TABLET 2 TAB PO BID ANXIETY (Reported) Metoprolol Tartrate 25 MG TABLET 1 TAB PO DAILY HEART (Reported) Quetiapine Fumarate (Seroquel) 400 MG TABLET 1 TAB PO QPM Anxiety (Reported) Quetiapine Fumarate (Seroquel) 100 MG TABLET 1 TAB PO TID MENTAL HEALTH ( Reported) Tiotropium [place] (Spiriva) 18 MCG CAP.W.DEV 1 CAP INH DAILY COPD (Reported) Past History Travel History Traveled to [place] past 21 day No Medical History Neurological: NONE EENT: NONE Cardiovascular: CAD Respiratory: COPD, LUNG CANCER Gastrointestinal: NONE Hepatic: NONE Renal: NONE Musculoskeletal: NONE Psychiatric: alcohol dependence Endocrine: PARTIAL THYROIDECTOMY Blood Disorders: NONE 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 Home Who Do You Live With? child Services at Home: None Primary Language: Amharic Smoking Status: Former Smoker ETOH Use: heavy use Illicit Drug Use: denies illicit drug use Functional Ability ADLs Independent: dressing, eating, toileting, bathing. Ambulation: independent IADLs Independent: shopping, housework, finances, food prep, telephone, transportation , medication admin. Review of Systems Review of Systems Constitutional: Reports: see HPI. Exam & Diagnostic Data Last 24 Hrs of Vital Signs/I&O Vital Signs Date Time Temp Pulse Resp B/P B/P Pulse O2 O2 Flow FiO2 Mean Ox Delivery Rate 05/08 1206 98.6 102 22 90/51 96 Room Air 06/07 1000 98.6 127 20 108/59 06/07 0953 98.6 127 20 108/59 96 Room Air 06/07 0945 98.6 127 20 108/59 06/07 0800 100.2 125 20 131/56 06/07 0800 100.2 125 20 131/56 95 Room Air / 0633 98.9 112 16 101/54 94 Room Air /07 0520 121 90/68 06/07 0519 90/68 /07 0515 98.8 123 20 82/51 98 06/07 0459 Room Air / 0321 130 18 06/07 0321 130 18 96 Room Air / 0126 97.5 124 18 138/80 06/07 0126 97.5 124 18 138/80 95 Room Air / 2324 98.7 113 20 151/95 / 2324 98.7 113 20 151/95 97 Room Air 05/07 2159 98.8 117 20 167/87 05/07 2137 97 Room Air 05/07 2128 117 20 167/87 95 Room Air / 2106 98.8 126 22 144/95 97 Room Air Intake & Output 05/08 1600 05/08 0800 06 0000 Intake Total 1000 Output Total Balance 1000 Intake, IV 1000 Patient 72.575 kg Weight Weight Estimated Measurement Method Physical Exam General Appearance Alert, Oriented X3, Cooperative, No Acute Distress Skin No Rashes Skin Temp/Moisture Exam: Warm/Dry Sepsis Skin Exam (color): Normal for Ethnicity HEENT Atraumatic, EOMI, Mucous Membr. moist/pink Neck Supple Cardiovascular Normal S1, Normal S2, Tachycardic, regular Lungs Clear to Auscultation, Normal Air Movement Abdomen Normal Bowel Sounds, Soft, No Tenderness, No Hepatospenomegaly, No Masses Neurological Normal Speech, Cranial Nerves 3-12 NL Extremities No Clubbing, No Cyanosis, No Edema, Normal Pulses, No Tenderness/ Swelling Vascular Normal Pulses, Pulses Symmetrical Last 24 Hrs of Labs/Bhavin: Laboratory Tests 05/07/182231: Urine Opiates Screen < 100, Methadone Screen 64, Barbiturate Screen < 60, Ur Phencyclidine Scrn < 6.00, Amphetamines Screen < 100, U Benzodiazepines Scrn 237 H, Urine Cocaine Screen < 50, Urine Cannabis Screen < 5.00 05/07/182137: Anion Gap 17 H, Estimated GFR > 60, BUN/Creatinine Ratio 23.3, Glucose 104 H, Calcium 9.0, Magnesium 1.7, Total Bilirubin 0.5, AST 26, ALT 30, Alkaline Phosphatase 85, Total Protein 7.1, Albumin 4.1, Globulin 3.0, Albumin/Globulin Ratio 1.4, Lipase 53, CBC w Diff NO MAN DIFF REQ, RBC 5.06, MCV 78.6 L, MCH 25.8 L, MCHC 32.9 L, RDW 15.6 H, MPV 8.1, Gran % 70.6, Lymphocytes % 17.3 L, Monocytes % 9.9 H, Eosinophils % 0.4, Basophils % 1.8, Absolute Granulocytes 4.4, Absolute Lymphocytes 1.1 L, Absolute Monocytes 0.6, Absolute Eosinophils 0 , Absolute Basophils 0.1, Serum Alcohol 129.0 Assessment/Plan Assessment: 58 year old woman with multiple medical problems significant for EtOH abuse, sinus tachycardia, CAD/IL, and metastatic lung cancer status post treatment brought in by ambulance for alcohol intoxication and altered mental status. Currently patient feels well and has no complaints. She remains in sinus tachycardia on telemetry and examination. Physical exam demonstrates a normal cardiopulmonary examination without any tremor in her extremities. Labs including CBC, serum chemistry, hepatic function panel, and lipase remain unremarkable; abnormal labs include magnesium 1.7, EtOH 129, and positive urine tox for benzodiazepine. CXR is unremarkable. EKG demonstrates sinus tachycardia (heart rate 120s) with poor R-wave progression that is old when compared to previous EKG. Patient received Ativan 2 mg IV 2 with her home meds and her stay in the ED. Clinically patient appears to have had altered mental status secondary to alcohol intoxication that has now since resolved. She appears pleasant and cooperative without any tremor and denies any active suicidal/homicidal ideation. Patient is agreeable to admission for alcohol detox and will be maintained on a scheduled Ativan dose with Ativan given as needed with supplements scratch that vitamin supplements. She will be continued with patient safety monitor until evaluated by psychiatry. Her beta-hammad should be increased to twice daily dosing as metoprolol is a 12 hour drug and she remains in sinus tachycardia. Problem List -EtOH withdrawal / intoxication -Suicidal ideation -Altered mental status, now improved -Sinus tachycardia -History of metastatic lung cancer to brain s/p resection / radiation / chemo ( 2013) -"New Lung Tumor", followed by oncologist in [place] -Former smoker -Anxiety / Depression -CAD with history of IL -History of Takosubo Cardiomyopathy -COPD, not on home Oxygen Plan -Admit to general medicine -[facility] -Patient safety monitor for SI -Ativan per CIWA -Ativan 2 mg PO Q6H -Zofran PRN for nausea -Increase Metoprolol Tartrate to 25 mg PO BID -Thiamine / Folate / Multivitamin -Continue home meds: aspirin, atorvastatin, lexapro, advair, gabapentin, seroquel, spiriva -Consult with Psychiatry for Suicidal ideation -Pain control with acetaminophen -Regular diet with finger foods only -DVT PPx with lovenox -FULL CODE As Ranked By This Provider Problem List: 1. Alcohol dependence with intoxication Core Measures/Misc (08/18) Acute Coronary Syndrome ACS Diagnosis: No Congestive Heart Failure Congestive Heart Failure Diagnosis No Cerebrovascular Accident CVA/TIA Diagnosis: No VTE (View Protocol) VTE Risk Factors Age>40 No Mechanical VTE Prophylaxis d/t N/A MechProphylax Ordered No VTE Pharm Prophylaxis d/t NA PharmProphylax ordered Sepsis (View protocol) Sepsis Present: No If YES complete Sepsis Event Note If YES complete Sepsis Event Note Jonnathan Roberts MD 05/08/18 1538: Core Measures/Misc (08/18) Sepsis (View protocol) If YES complete Sepsis Event Note If YES complete Sepsis Event Note Attending MD Review Statement Attending Statement Attending MD Statement: examined this patient, discuss w/resident/PA/DIRECTOR FUNDS DEVELOPMENT, agreed w/resident/PA/DIRECTOR FUNDS DEVELOPMENT, reviewed EMR data (avail), discussed with nursing, amended to note Attending Assessment/Plan: 58-year-old female history of alcohol abuse brought in after daughter called EMS. Apparently patient had consumed alcohol and possibly some of her antidepressants and was found very somnolent. She was brought to the ER for evaluation. In the ER she expressed a desire to . She has recently been admitted to [facility] last month managed for alcohol withdrawal. She does not appear ready to abstain from alcohol use. Apparently her daughter had taken her keys away from home in an attempt to prevent the patient from going to the liquor store. Patient ended up taking a cab to the liquor store. Patient was brought into the emergency room for evaluation yesterday. While in the emergency room her CIWA score has been trending upwards. She however did not receive any Ativan in the emergency room. She was referred to the medical service for further management. Also significant in her history is lung cancer. According to the patient she recently followed up with her oncologist at [facility] and was told that a recent PET scan shows recurrence of her malignancy. She reports that she has an appointment to see her oncologist tomorrow to decide on radiation therapy. On examination she is not agitated or tremulous. He is alert and oriented 3. She has no focal neurologic deficits. Plan: -Her elevated CIWA score suggested development of alcohol withdrawal. Patient will be admitted to the inpatient medical service for further management. -Patient has been placed on standing Ativan regimen with as needed Ativan based on an elevated CIWA score. -Psychiatric consultation is required since patient voiced desire for her life to end. -She was noted to be febrile in the emergency room however this appears to have been transient. She has no clinical evidence of an infectious etiology at present. We will hold antibiotic therapy for now. If patient spikes fever again recommend broad-spectrum antibiotic coverage and pancultures. -She reports that she has an appointment with her oncologist. She states she will be changing the appointment until after the weekend. Hopefully she may be discharged over the weekend.
--- NOTE | 2018-05-08 15:37 | Admission Certification ---
Admission Certification Certification Statement - As attending physician, I certify that at the time of - admission, based on clinical presentation, severity of - symptoms, need for further diagnostic testing and - therapeutic interventions, and risk of adverse outcomes - without in-hospital treatment, in my clinical assessment, - this patient requires an acute hospital stay for a minimum - of two nights or longer. I have also considered psychsocial - factors such as support system, advanced age, financial - issues, cognitive issues, and failed out-patient treatments, - past re-admission history, safety of patient, and lack of - compliance as applicable. Specific rationale supporting this admission is: Patient requires hospitalization for management of alcohol withdrawal syndrome.
[2018-05-09 02:00] VITALS: BP 98/60
[2018-05-09 06:00] VITALS: BP 116/64
--- NOTE | 2018-05-09 07:21 | PN- Housestaff ---
Keysha PANIAGUA,Lior 05/09/18 0721: Subjective Follow-up For: EtOH withdrawal / intoxication Suicidal ideation Altered mental status, now improved Sinus tachycardia Subjective: Patient was seen and examined today. Denies SI/HI. Reports she feels fine and is insisting to speak with the psychiatrist to remove her 1:1 sitter. Patient reports she has had some palpitations yesterday but they have subsided. Patient denies chest pain, shortness of breath, dizziness, lightheadedness, nausea/ vomitting, abdominal pain, diaophoresis, headache, tremors, beam racker/visual/ tactile hallucinations. Nursing/sitter reports that patient has been on the phone asking people to bring her things which may include controlled/illegal substances/alcohol. Review of Systems Constitutional: Reports: see HPI. Objective Last 24 Hrs of Vital Signs/I&O Vital Signs Date Time Temp Pulse Resp B/P B/P Pulse O2 O2 Flow FiO2 Mean Ox Delivery Rate 05/09 2227 98.6 97 20 150/80 96 05/09 2031 108 138/90 05/09 1927 97.6 103 20 132/95 08 1836 97.6 103 20 132/95 95 /08 1445 98.0 112 20 120/70 95 /08 0600 98.1 111 18 116/64 95 Room Air 05/09 0200 98.0 112 18 98/60 93 Room Air Intake & Output 05/10 0800 / 0000 08 1600 Intake Total 100 800 Output Total Balance 100 800 Intake, Oral 100 800 Physical Exam General Appearance: Alert, Cooperative, No Acute Distress Skin: No Rashes Skin Temp/Moisture Exam: Warm/Dry HEENT: Atraumatic, Mucous Membr. moist/pink Cardiovascular: Normal S1, Normal S2, No Murmurs, tachycardic Lungs: Clear to Auscultation, Normal Air Movement Abdomen: Normal Bowel Sounds, Soft, No Tenderness Neurological: Normal Speech, Sensation Intact, no tremors Extremities: No Clubbing, No Cyanosis, No Edema, Normal Pulses, No Tenderness/ Swelling Current Medications: Current Medications Sig/John Start time Last Medication Dose Route Stop Time Status Admin Acetaminophen 650 MG Q6P PRN 05/08 1215 AC PO Aspirin 81 MG DAILY 05/08 900 AC 05/09 PO 0854 Atorvastatin Calcium 40 MG DAILY 05/08 900 AC 05/09 PO 0855 Budesonide/ 2 PUF BID 05/07 2300 AC 05/09 Formoterol Fumarate INH 2149 Buspirone HCl 5 MG BID 05/09 2100 AC 05/09 PO 2031 Enoxaparin Sodium 40 MG DAILY 05/09 0900 AC 05/09 SC 0858 Escitalopram Oxalate 30 MG DAILY 05/10 900 AC PO Escitalopram Oxalate 10 MG ONCE ONE 05/09 1500 DC 05/09 PO 05/09 1501 1834 Escitalopram Oxalate 20 MG DAILY 05/08 0900 DC 05/09 PO 0855 Folic Acid 1 MG DAILY 05/08 1211 AC 05/09 PO 05/10 0901 0855 Gabapentin 1,200 MG BID 05/08 2100 AC 05/09 PO 2031 Lorazepam 1.5 MG Q6 05/09 1800 AC 05/09 PO 2342 Lorazepam 1 MG Q2P PRN 05/08 1215 AC 05/09 IV 1927 Lorazepam 2 MG Q6 05/08 1212 DC 05/09 PO 1227 Magnesium Oxide 400 MG DAILY 05/08 1214 AC 05/09 PO 0857 Metoprolol Tartrate 25 MG BID 05/09 09 AC 05/09 PO 2031 Metoprolol Tartrate 25 MG DAILY 05/08 09 DC 05/08 PO 0945 Multivitamins 1 TAB DAILY 05/08 1211 AC 05/09 PO 0857 Nicotine 14 MG DAILY 05/09 1430 AC 05/09 TOP 1834 Ondansetron HCl 4 MG Q8P PRN 05/08 1215 AC IV Patient Medication 1 ED ONE ONE 05/09 930 DC 05/09 Teaching ED 05/09 0931 1228 Quetiapine Fumarate 400 MG QPM 05/08 2100 DC 05/08 PO 2036 Quetiapine Fumarate 100 MG TIDAC 05/08 1300 DC 05/09 PO 1227 Thiamine HCl 100 MG DAILY 05/08 1211 AC 05/09 PO 05/10 0901 0858 Tiotropium [place] 1 PUF DAILY 05/08 0900 AC 05/09 INH 1228 Last 24 Hrs of Lab/Bhavin Results Last 24 Hrs of Labs/Mics: Laboratory Tests 05/09/18 0654: Anion Gap 8, Estimated GFR > 60, BUN/Creatinine Ratio 38.3 H, Magnesium 1.8, CBC w Diff MAN DIFF ORDERED, RBC 3.73 L, MCV 79.4 L, MCH 26.0 L, MCHC 32.8 L , RDW 15.9 H, MPV 8.1, Gran % 48.2, Lymphocytes % 26.6, Monocytes % 17.0 H, Eosinophils % 7.3 H, Basophils % 0.9, Absolute Granulocytes 1.7, Segmented Neutrophils 43, Band Neutrophils 2, Absolute Lymphocytes 0.9 L, Lymphocytes 33, Monocytes 10 H, Absolute Monocytes 0.6, Eosinophils 11 H, Absolute Eosinophils 0.3, Basophils 1, Absolute Basophils 0, Nucleated RBCs 1 H, Platelet Estimate ADEQUATE, Hypochromic-Microcytic 2+, Poikilocytosis 2+, Anisocytosis 2+, Ovalocytes 2+ Assessment/Plan Assessment: 58 year old woman with multiple medical problems significant for EtOH abuse, sinus tachycardia, CAD/SC, and metastatic lung cancer status post treatment brought in by ambulance for alcohol intoxication and altered mental status. Patient today is tachycardic in the 110s-120s, with CIWA <10 and mainly in the 0s currently on ativant 2mg q6h and requiring 1mg IV ativan PRN. Patient continues to ask for sitter to be removed however has been overheard having multiple conversations asking her friends/family to bring her substances which may include drugs and alcohol. Patient was seen by psychiatry today who had spoken to the daughter who states she is worried that the patient is suicidal. Per psychiatry patient will need to be involuntarily admitted to [facility] psych unit. Plan: Admitted to [facility] CIWA protocol Ativan decreased to 1.5mg q6h today, will decrease to 1mg q6h tomorrow Per psychiatry: discontinued seroquel, increased lexapro to 30mg, and starteg on buspar 5mg BID for alcohol cravings Continue safety monitor Increased Metoprolol Tartrate to 25 mg PO BID today Continue Thiamine / Folate / Multivitamin Continue home meds: aspirin, atorvastatin, advair, gabapentin, spiriva Pain control with acetaminophen Diet: Regular (finger foods only due to SI) DVT PPx: lovenox Code: Full code Dispo: patient will be discharge to [facility] once bed is available. CMR has been completed. Problem List: 1. Alcohol intoxication 2. Alcohol dependence 3. Suicidal ideation 4. Tachycardia Pain Ratin Pain Location: n/a Pain Goal: Remain pain free Pain Plan: tylenol PRN Tomorrow's Labs & Rationales: none Alejandra PANIAGUA,Jonnathan 05/09/18 1052: Attending MD Review Statement Attending Statement Attending MD Statement: examined this patient, discuss w/resident/PA/LINSEED OIL BOILER, agreed w/resident/PA/LINSEED OIL BOILER, reviewed EMR data (avail), discussed with nursing, reviewed images, amended to note Attending Assessment/Plan: Patient seen and examined. No issues overnight reported by nursing staff. Remains afebrile and hemodynamically stable. Resting comfortably and not in any acute distress. She is eager to have her sitter discontinued. Denies any suicidal ideation at present. Alert and oriented 3. Conversant appropriately. CIWA scores has improved although she did have one elevated score overnight. Nursing staff reports over handed patient asking friends or family to bring in what they believe is contraband. Continue benzodiazepine therapy. Taper down Ativan to 1.5 mg every 6 hours. Tomorrow will be decreased further to 1 mg every 8 hours. Patient has been counseled on the need to abstain from further alcohol use. She will be followed by the psychiatry service today regarding suicide ideations she had on admission. She remains afebrile with no evidence of infection. Will continue to monitor off abx therapy.
[2018-05-09 07:41] LABS: ABSOLUTE BASOPHIL COUNT 0 /CUMM (0.0-0.2); ABSOLUTE EOSINOPHIL COUNT 0.3 /CUMM (0.0-0.7); ABSOLUTE GRANULOCYTE CT 1.7 /CUMM (1.4-6.5); ABSOLUTE LYMPH COUNT 0.9 /CUMM (1.2-3.4); ABSOLUTE MONOCYTE COUNT 0.6 /CUMM (0.10-0.60)
[2018-05-09 08:13] LABS: BASOPHIL % 0.9 % (0.0-2.0); EOSINOPHIL % 7.3 % (0-5); GRANULOCYTE % 48.2 % (42.2-75.2); MEAN CORPUSCULAR HGB CONC 32.8 G/DL (33.0-37.0); MEAN CORPUSCULAR VOLUME 79.4 FL (81.0-99.0); MEAN PLATELET VOLUME 8.1 FL (7.4-10.4); PLATELET COUNT 266 /CUMM (130-400); RBC DISTRIBUTION WIDTH 15.9 % (11.5-14.5); WHITE BLOOD CELL COUNT 3.5 /CUMM (4.8-10.8)
[2018-05-09 08:19] LABS: HEMATOCRIT 29.6 % (37-47); RED BLOOD CELL CT 3.73 /CUMM (4.20-5.40)
[2018-05-09 14:45] VITALS: BP 120/70
--- NOTE | 2018-05-09 15:53 | Discharge Summary ---
Visit Information Visit Dates Admission Date: 05/08/18 Discharge Date: 05/09/2018 Hospital Course Course Attending Physician: [facility] Primary Care Physician: Gretel PANIAGUA,[facility] Course: 58-year-old woman with past medical history of EtOH abuse/intoxication, metastatic lung cancer with brain involvement status post craniotomy/radiation/ chemotherapy (2013), new lung tumor followed by oncologist in [place], anxiety /depression followed by [facility], COPD not on oxygen, CAD/AL, and Takosubo cardiomyopathy brought in by ambulance for alcohol intoxication and altered mental status. Patient reportedly had her keys taken away by her daughter yesterday as the daughter "did not want her to go to the liquor store". Patient then took a cab to the liquor store and bought 7 "nips" of Celine vodka and picked up her Seroquel prescription at the pharmacy next door. She reportedly drank all of the alcohol and possibly ingested excessive amounts of Seroquel per emergency room notes; however patient denies this. She was found somnolent and confused by her daughter who called EMS and brought her to the [place] ED for evaluation. Patient was observed in the ED overnight and treated with intravenous Ativan. At one point in time she expressed that she "wanted to " for which the patient safety monitor was placed. Presently patient states that she feels well , has no complaints, and denies any suicidal/homicidal ideation. She denies a history of alcohol withdrawal seizures, intubation or ICU admission, or ever having had an Ativan drip. Patient was previously admitted to [facility] from 04/11/18-04/14/18 for similar complaints where she was treated with a Librium taper and monitored on telemetry for her sinus tachycardia. She was evaluated by satellite tv technician Dr. Dwain Birmingham whom felt her sinus tachycardia was secondary to her multiple medical problems and should be continued on a beta-hammad. She was discharged home with medication taper and instruction to follow-up with the [facility]. Patient was treated for; Problem List -EtOH withdrawal / intoxication -Suicidal ideation -Altered mental status, now improved -Sinus tachycardia, -History of metastatic lung cancer to brain s/p resection / radiation / chemo ( 2013) -"New Lung Tumor", [place] oncologist in [place] -Former smoker -Anxiety / Depression -CAD with history of AL -History of Takosubo Cardiomyopathy -COPD, not on home Oxygen Patient was admitted to general medicine floor with Ativan taper for alcohol detox. Today she is getting 1.5 mg every 6 [id number]-xey-axhdi in addition to when necessary Ativan per CIWA, the plan is to decrease is to 1mg q6 RTC tomorrow and taper accordingly per CIWA score. As inpatient her seraquel was discontinued, lexapro was increased to 30 mg from 20 mg daily, and patient was started on buspar 5 mg BID, per Psyc. Patient also was also started on by mouth vitamins, thiamine, folic acid which will be continued. For tachycardia patient's metoprolol was increased to 25 twice a day. Patient was continued on aspirin, Lipitor, and gabapentin. Urine culture was negative after 2 days. Allergies: Coded Allergies: No Known Allergies (04/11/18) Disposition Summary Disposition Principal Diagnosis: Etoh detox Additional Diagnosis: as above Discharge Disposition: inpatient psyc Discharge Instructions General Discharge Information Code Status: Full Code Patient's Diet: regular Patient's Activity: as tolerated Follow-Up Instructions/Appts: please follow upw ith PCP upon discharge. Medications at Discharge Discharge Medications: Stop taking the following medications: Escitalopram Oxalate (Escitalopram Oxalate) 20 MG TABLET ORAL DAILY Qty = 30 Quetiapine Fumarate (Seroquel) 100 MG TABLET ORAL THREE TIMES DAILY Qty = 90 Quetiapine Fumarate (Seroquel) 400 MG TABLET ORAL Every night Metoprolol Tartrate (Metoprolol Tartrate) 25 MG TABLET ORAL DAILY Continue taking these medications: Aspirin (Aspirin*) 81 MG TAB.CHEW 1 Tablet ORAL DAILY Qty = 30 Comments: LAST GIVEN 04/14/18 @ 0900 Gabapentin (Gabapentin) 600 MG TABLET 2 Tablet ORAL TWICE DAILY Qty = 120 Comments: LAST GIVEN 04/14/18 @ 0900 Atorvastatin Calcium (Lipitor) 40 MG TABLET 1 Tablet ORAL DAILY Comments: LAST GIVEN 04/13/18 @ 1700 Fluticasone/Salmeterol (Advair 250-50 Diskus) 250 MCG-50 MCG/DOSE BLST.W.DEV 1 Puff Inhale through mouth TWICE DAILY Comments: Last Taken: 03/04/18 Time: 9:00 AM Tiotropium [place] (Spiriva) 18 MCG CAP.W.DEV 1 Capsule Inhale through mouth DAILY Comments: Last Taken: 03/04/18 Time: 9:00 AM Start taking the following new medications: Nicotine (Nicotine Patch) 14 MG/24 HOUR PATCH.TD24 14 Milligram On the skin DAILY Qty = 30 No Refills Metoprolol Tartrate (Metoprolol Tartrate) 25 MG TABLET 1 Tablet ORAL TWICE DAILY Qty = 30 No Refills Escitalopram Oxalate (Lexapro) 10 MG TABLET 1 Tablet ORAL DAILY Qty = 30 No Refills Lorazepam (Ativan) 0.5 MG TABLET 0 ORAL SEE INSTRUCTIONS Qty = 20 No Refills Instructions: Take 3 pills at 6PM and 12AM on 05/09 Take 2 pills every 6 hours on 05/10 Take 2 pills every 12 hours on 05/11 Take 1 pill every 12 hours on 05/12 Then stop Folic Acid (Folic Acid) 1 MG TABLET 1 Milligram ORAL DAILY Qty = 30 No Refills Thiamine HCl (Vitamin B-1) 100 MG TABLET 100 Milligram ORAL DAILY Qty = 30 No Refills Multivitamin (One Daily Multivitamin) 1 EACH TABLET 1 Tablet ORAL DAILY Qty = 30 No Refills Buspirone HCl (Buspirone HCl) 5 MG TABLET 1 Tablet ORAL TWICE DAILY Qty = 30 No Refills Copies To: Mariana Majano MD Attending MD Review Statement Documenting Attending: Jonnathan Roberts MD Other Findings: Medically stable to be transferred down to the inpatient psychiatric service.
[2018-05-09] MEDS ORDERED: NICOTINE PATCH1 EAC2 TOP (17:09)
[2018-05-09] MEDS ORDERED: FOLIC ACID1 M1 PO (17:10)
[2018-05-09] MEDS ORDERED: METOPROLOL TART25 M1 PO (17:10)
[2018-05-09] MEDS ORDERED: ATIVAN0.5 M1 PO (17:10)
[2018-05-09] MEDS ORDERED: VITAMIN B-1100 MG PO (17:10)
[2018-05-09] MEDS ORDERED: ONE DAILY MULT1 EAC2 PO (17:10)
[2018-05-09] MEDS ORDERED: LEXAPRO10 M1 PO (17:10)
[2018-05-09] MEDS ORDERED: BUSPIRONE HCL5 M1 PO (17:11)
--- NOTE | 2018-05-09 17:17 | Patient Discharge Instructions ---
Discharge Instructions General Discharge Information You were seen/treated for: Alcohol intoxication and withdrawal Suicidal Ideations Sinus Tachycardia Special Instructions: 1. Please note the medication changes that have been made 2. Please follow up with your pcp and psychiatrist Acute Coronary Syndrome Inclusion Criteria At DC or during hospital stay patient has or had the following: ACS DIAGNOSIS No Discharge Core Measures Meds if any: Prescribed or Continued at Discharge Meds if any: NOT Prescribed or Continued at Discharge Congestive Heart Failure Inclusion Criteria At DC or during hospital stay patient has or had the following: CHF DIAGNOSIS No Discharge Core Measures Meds if any: Prescribed or Continued at Discharge Meds if any: NOT Prescribed or Continued at Discharge Cerebrovascular accident Inclusion Criteria At DC or during hospital stay patient has or had the following: CVA/TIA Diagnosis No Discharge Core Measures Meds if any: Prescribed or Continued at Discharge Meds if any: NOT Prescribed or Continued at Discharge Venous thromboembolism Inclusion Criteria VTE Diagnosis No VTE Type NONE VTE Confirmed by (Test) NONE Discharge Core Measures - Per Current guidelines, there needs to be overlap - treatment for the first 5 days of Warfarin therapy. - If discharged on Warfarin prior to 5 days of - overlap therapy, the patient will need to be - assessed for post discharge needs including - *Post discharge parental anticoagulation - *Warfarin and/or parental anticoagulation education - *Follow up date to check INR post discharge At least 5 days overlap therapy as Inpatient No Meds if any: Prescribed or Continued at Discharge Note: Overlap Therapy is Warfarin and Anticoagulant Meds if any: NOT Prescribed or Continued at Discharge
[2018-05-09 18:36] VITALS: BP 132/95
[2018-05-09 19:27] VITALS: BP 132/95
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
[2018-05-09 22:27] VITALS: BP 150/80
[2018-05-10] VITALS (10 sets, daily range): BP systolic 118–168; BP diastolic 68–100
--- NOTE | 2018-05-10 06:46 | PN- Housestaff ---
Andressa PANIAGUA,Srinivasan 05/10/18 0645: Subjective Follow-up For: etoh detox suicidal ideation Subjective: periods of intermittent anxiety remains tachycardia ciwa 0-9 afebrile awaiting south bed can not leave AMA, PEC Review of Systems Constitutional: Reports: see HPI. Objective Last 24 Hrs of Vital Signs/I&O Vital Signs Date Time Temp Pulse Resp B/P B/P Pulse O2 O2 Flow FiO2 Mean Ox Delivery Rate 05/10 0635 97.1 102 18 160/100 05/10 0628 97.1 102 18 160/100 96 Room Air 05/10 0138 98.6 100 20 168/94 05/10 0127 100 18 168/94 96 Room Air / 0000 98.6 97 20 150/80 05/09 2227 98.6 97 20 150/80 96 05/09 2031 108 138/90 05/09 1927 97.6 103 20 132/95 05/09 1836 97.6 103 20 132/95 95 08 1445 98.0 112 20 120/70 95 Intake & Output 05/10 1600 05/10 0800 05/10 0000 Intake Total 200 100 Output Total Balance 200 100 Intake, Oral 200 100 Patient 68.039 kg Weight Physical Exam General Appearance: Alert, Oriented X3, Cooperative, No Acute Distress Cardiovascular: Regular Rate, Normal S1, Normal S2, No Murmurs Lungs: Clear to Auscultation, Normal Air Movement Abdomen: Normal Bowel Sounds, Soft, No Tenderness, No Masses Extremities: No Clubbing, No Cyanosis, No Edema, Normal Pulses, No Tenderness/ Swelling Current Medications: Current Medications Sig/John Start time Last Medication Dose Route Stop Time Status Admin Acetaminophen 650 MG Q6P PRN 05/08 1215 AC PO Aspirin 81 MG DAILY 05/08 900 AC 05/09 PO 0854 Atorvastatin Calcium 40 MG DAILY 05/08 900 AC 05/09 PO 0855 Budesonide/ 2 PUF BID 05/07 2300 AC 05/09 Formoterol Fumarate INH 2149 Buspirone HCl 5 MG BID 05/09 2100 AC 05/09 PO 2031 Enoxaparin Sodium 40 MG DAILY 05/09 900 AC 05/09 SC 0858 Escitalopram Oxalate 30 MG DAILY 05/10 900 AC PO Escitalopram Oxalate 10 MG ONCE ONE 05/09 1500 DC 05/09 PO 06/08 1501 1834 Escitalopram Oxalate 20 MG DAILY 05/08 0900 DC 05/09 PO 0855 Folic Acid 1 MG DAILY 05/08 1211 AC 05/09 PO 05/10 0901 0855 Gabapentin 1,200 MG BID 05/08 2100 AC 05/09 PO 2031 Lorazepam 1 MG Q6 05/10 1200 AC PO Lorazepam 1.5 MG Q6 05/09 1800 DC 05/10 PO 0619 Lorazepam 1 MG Q2P PRN 05/08 1215 AC 05/10 IV 0636 Lorazepam 2 MG Q6 05/08 1212 DC 05/09 PO 1227 Magnesium Oxide 400 MG DAILY 05/08 1214 AC 05/09 PO 0857 Metoprolol Tartrate 25 MG BID 05/09 0900 AC 05/09 PO 2031 Multivitamins 1 TAB DAILY 05/08 1211 AC 05/09 PO 0857 Nicotine 14 MG DAILY 05/09 1430 AC 05/09 TOP 1834 Ondansetron HCl 4 MG Q8P PRN 05/08 1215 AC IV Patient Medication 1 ED ONE ONE 05/09 0930 DC 05/09 Teaching ED 05/09 0931 1228 Quetiapine Fumarate 300 MG AT BEDTIME 05/10 2100 AC PO Quetiapine Fumarate 50 MG TID 05/10 0900 AC PO Quetiapine Fumarate 400 MG QPM 05/08 2100 DC 05/08 PO 2036 Quetiapine Fumarate 100 MG TIDAC 05/08 1300 DC 05/09 PO 1227 Thiamine HCl 100 MG DAILY 05/08 1211 AC 05/09 PO 05/10 0901 0858 Tiotropium [place] 1 PUF DAILY 05/08 0900 AC 05/09 INH 1228 Assessment/Plan Assessment: 58 year old woman with multiple medical problems significant for EtOH abuse, sinus tachycardia, CAD/CA, and metastatic lung cancer status post treatment brought in by ambulance for alcohol intoxication and altered mental status. Mental status is improved, patient remains on 1:1 for SI and Ativan is being tapered. Awaiting inpatient psych bed (involuntary if necessary) for active suicidal ideation with medication adjustments recommended by psychiatry EtOH detox CIWA protocol, 0-9 today Remains mildly tachycardic Ativan decreased to 1mg q6h today Lexapro 30mg and buspar 5mg BID Continue seroquel 50mg tid and 300mg qhs per psych Continue 1:1 continuous observation monitor Continue metoprolol tartrate 25mg PO BID Continue thiamine, folate, multivitamin CAD: Continue aspirin and atorvastatin COPD: Continue advair and spiriva Pain control with acetaminophen and gabapentin Regular diet DVT ppx-lovenox Full code Awaiting transfer to [facility] Problem List: 1. Depression with suicidal ideation 2. Alcohol withdrawal 3. Alcohol dependence Pain Ratin Pain Location: n/a Pain Goal: Pain 4 or less Pain Plan: prn Tomorrow's Labs & Rationales: none Jonnathan Roberts MD 05/10/18 0844: Attending MD Review Statement Attending Statement Attending MD Statement: examined this patient, discuss w/resident/PA/ADMINISTRATIVE ASSISTANT FRONT DESK, agreed w/resident/PA/ADMINISTRATIVE ASSISTANT FRONT DESK, reviewed EMR data (avail), discussed with nursing, discussed with case mgmt, amended to note Attending Assessment/Plan: Patient seen and examined. No issues overnight reported by nursing staff. Remains afebrile and hemodynamically stable. Resting comfortably and not in any acute distress. No new complaints this morning. Psychiatry evaluation done yesterday appreciated. CIWA scores noted to be fluctuating with periods of anxiety on and off. Continue Ativan taper as already done today. Monitor patient closely for alcohol withdrawal symptoms. She was started on Lexapro and BuSpar by the psychiatry service yesterday and Seroquel is being tapered. She has had no more fever. She is medically stable to be transferred to the inpatient psychiatric unit as recommended by the psychiatry service. Upon discharge patient is to follow-up with her oncology service in the outpatient setting.
[2018-05-11] VITALS (8 sets, daily range): BP systolic 96–150; BP diastolic 53–90
--- NOTE | 2018-05-11 08:03 | PN- Housestaff ---
Keysha PANIAGUA,Lior 05/11/18 0802: Subjective Follow-up For: EtOH withdrawal / intoxication Suicidal ideation Altered mental status, now improved Sinus tachycardia Subjective: Patient was seen and examined today. Patient resting comfortably in bed. Reportedly asking for ativan. Patient anxious about discharge and getting to radiation therapy appointment. CIWA: 0, 0, 0, 0, 0, 0, 8, 1 Review of Systems Constitutional: Reports: see HPI. Objective Last 24 Hrs of Vital Signs/I&O Vital Signs Date Time Temp Pulse Resp B/P B/P Pulse O2 O2 Flow FiO2 Mean Ox Delivery Rate 05/11 0553 96.6 98 18 112/68 96 Room Air 05/11 0201 96.2 88 18 102/60 95 Room Air 05/10 2159 97.8 95 20 138/91 98 05/10 2151 95 138/90 05/10 1800 97.9 96 18 151/100 97 05/10 1420 97.2 90 20 118/68 94 Room Air 05/10 1157 98.5 94 20 156/98 05/10 1157 98.5 94 20 156/98 97 Room Air 05/10 1007 97.4 99 20 160/100 99 Room Air 05/10 0943 97.1 102 18 160/100 Intake & Output 05/11 1600 05/11 0800 05/11 0000 Intake Total 200 100 Output Total Balance 200 100 Intake, Oral 200 100 Patient 159 lb Weight Physical Exam General Appearance: Alert, Cooperative, No Acute Distress Skin: No Rashes HEENT: Atraumatic, Mucous Membr. moist/pink Cardiovascular: Regular Rate, Normal S1, Normal S2 Lungs: Clear to Auscultation, Normal Air Movement Abdomen: Normal Bowel Sounds, Soft, No Tenderness Neurological: no tremor Extremities: No Clubbing, No Cyanosis, No Edema, Normal Pulses, No Tenderness/ Swelling Current Medications: Current Medications Sig/John Start time Last Medication Dose Route Stop Time Status Admin Acetaminophen 650 MG .STK-MED ONE 05/10 945 DC PO 05/10 946 Acetaminophen 650 MG Q6P PRN 05/08 1215 AC 05/10 PO 0946 Aspirin 81 MG DAILY 05/08 900 AC 05/11 PO 0752 Atorvastatin Calcium 40 MG DAILY 05/08 900 AC 05/11 PO 0753 Budesonide/ 2 PUF BID 05/07 2300 AC 05/11 Formoterol Fumarate INH 0755 Buspirone HCl 5 MG BID 05/09 2100 AC 05/11 PO 0752 Enoxaparin Sodium 40 MG DAILY 05/09 900 AC 05/11 SC 0754 Escitalopram Oxalate 30 MG DAILY 05/10 900 AC 05/11 PO 0753 Folic Acid 1 MG DAILY 05/08 1211 DC 05/10 PO 05/10 0901 0943 Gabapentin 1,200 MG BID 05/08 2100 AC 05/11 PO 0754 Lorazepam 1 MG Q6 05/10 1200 AC 05/11 PO 0548 Lorazepam 1 MG Q2P PRN 05/08 1215 AC 05/10 IV 1804 Magnesium Oxide 400 MG DAILY 05/08 1214 AC 05/11 PO 0754 Metoprolol Tartrate 25 MG BID 05/09 900 AC 05/11 PO 0753 Multivitamins 1 TAB DAILY 05/08 1211 AC 05/11 PO 0756 Nicotine 14 MG DAILY 05/09 1430 AC 05/11 TOP 0754 Ondansetron HCl 4 MG Q8P PRN 05/08 1215 AC IV Quetiapine Fumarate 300 MG AT BEDTIME 05/10 2100 AC 05/10 PO 2151 Quetiapine Fumarate 50 MG TID 05/10 900 AC 05/11 PO 0755 Thiamine HCl 100 MG DAILY 05/08 1211 DC 05/10 PO 05/10 0901 0944 Tiotropium Mitchell 1 PUF DAILY 05/08 09 AC 05/11 INH 0755 Assessment/Plan Assessment: 58 year old woman with multiple medical problems significant for EtOH abuse, sinus tachycardia, CAD/VA, and metastatic lung cancer status post treatment brought in by ambulance for alcohol intoxication and altered mental status. Patient's tachycardia is improving with increased dose of metoprolol. Blood pressure is remaining in a normal range. Over the past 24 hours patients CIWA Max was 8 requiring 3mg IV Ativan PRN currently on on ativan 1mg q6h. Patient is stable for transfer to inpatient psych (involuntary) admission once bed is available. Problems: 1. Alcohol detox 2. Suicidal Ideations, cannot leave AMA 3. COPD 4. CAD Plan: Admitted to [facility] protocol Ativan decrased to 0.5mg q8h today Per psychiatry: tapering seroquel, increased lexapro to 30mg, and started on buspar 5mg BID for alcohol cravings Continue safety monitor Continue Metoprolol Tartrate to 25 mg PO BID today Continue Thiamine / Folate / Multivitamin Continue home meds: aspirin, atorvastatin, advair, gabapentin, spiriva Pain control with acetaminophen Diet: Regular (finger foods only due to SI) DVT PPx: lovenox Code: Full code Dispo: Per psychiatry patient is NOT cleared for discharge and cannot leave AMA. Problem List: 1. Alcohol intoxication 2. Suicidal ideation 3. Tachycardia Pain Ratin Pain Location: n/a Pain Goal: Remain pain free Pain Plan: n/a Tomorrow's Labs & Rationales: none Jonnathan Roberts MD 05/11/18 1102: Attending MD Review Statement Attending Statement Attending MD Statement: examined this patient, discuss w/resident/PA/INSURANCE CODER, agreed w/resident/PA/INSURANCE CODER, reviewed EMR data (avail), discussed with nursing, amended to note Attending Assessment/Plan: Patient seen and examined. She is anxious about being discharged home stating that she has an appointment with her radiation oncologist, arnaud at [facility] tomorrow morning around 11 AM. Nursing staff reports that she has been sleeping comfortably and not scoring significantly on her CIWA however when she always she requests for benzodiazepine therapy. She was evaluated by the psychiatric service during the week with recommendations not to administer benzodiazepines simply based on of the patient's request. Recommendations: -Decrease Ativan to 0.5 mg orally every 8 hours/ -Awaiting availability in the inpatient psychiatric service for transfer. -Contact patient's radiation oncology service at [facility] tomorrow to reschedule her appointment. -Repeat CBC in a.m.
[2018-05-12 06:00] VITALS: BP 120/80
[2018-05-12 08:49] VITALS: BP 150/90
--- NOTE | 2018-05-12 10:02 | Incdntl Nt Psy ---
Incidental Note Notation: Please discharge patient will go to [facility] today.
[2018-05-12 11:02] VITALS: BP 120/80
--- NOTE | 2018-05-12 11:09 | PN- Housestaff ---
Keysha PANIAGUA,Lior 05/12/18 1109: Subjective Follow-up For: Alcohol detox Suicidal Ideations Subjective: Patient was seen and examined today. Patient has agreed to go to inpatient psych however is concerned about her appointment with the radiation oncologist. This has already been addressed by the psychiatrist. Patient is also concerned about her seroquel and ativan today. Denies any other complaints. Review of Systems Constitutional: Reports: see HPI. Objective Last 24 Hrs of Vital Signs/I&O Vital Signs Date Time Temp Pulse Resp B/P B/P Pulse O2 O2 Flow FiO2 Mean Ox Delivery Rate 05/12 1102 98.5 92 18 120/80 96 T Piece 05/12 0849 97.8 96 18 150/90 96 Room Air 05/12 0843 86 120/80 05/12 06 98.6 86 16 120/80 96 Room Air 05/11 2200 98.3 89 18 96/53 96 05/11 2003 97.9 98 20 122/70 05/11 1813 97.9 100 20 122/70 97 10 1600 Room Air 05/11 1600 97.5 95 20 130/70 Intake & Output 05/12 1600 05/12 0800 05/12 0000 Intake Total 400 500 Output Total Balance 400 500 Intake, Oral 400 500 Number 1 Bowel Movements Physical Exam General Appearance: Alert, Cooperative, No Acute Distress Skin Temp/Moisture Exam: Warm/Dry HEENT: Atraumatic, Mucous Membr. moist/pink Cardiovascular: Regular Rate, Normal S1, Normal S2 Lungs: Clear to Auscultation, Normal Air Movement Abdomen: Normal Bowel Sounds, Soft, No Tenderness Neurological: Normal Gait, Normal Speech, Cranial Nerves 3-12 NL, no tremor Extremities: No Clubbing, No Cyanosis, No Edema, Normal Pulses, No Tenderness/ Swelling Current Medications: Current Medications Sig/John Start time Last Medication Dose Route Stop Time Status Admin Acetaminophen 650 MG Q6P PRN 05/08 1215 AC 05/10 PO 0946 Aspirin 81 MG DAILY 05/08 900 AC 05/12 PO 42 Atorvastatin Calcium 40 MG DAILY 05/08 900 AC 05/12 PO 0843 Budesonide/ 2 PUF BID 05/07 2300 AC 05/12 Formoterol Fumarate INH 0843 Buspirone HCl 5 MG BID 05/09 2100 AC 05/12 PO 0842 Enoxaparin Sodium 40 MG DAILY 05/09 900 AC 05/12 SC 0843 Escitalopram Oxalate 30 MG DAILY 05/10 900 AC 05/12 PO 0841 Gabapentin 1,200 MG BID 05/08 2100 AC 05/12 PO 0842 Lorazepam 0.5 MG BID 05/12 2100 AC PO 05/19 2059 Lorazepam 0.5 MG Q8 05/11 2200 DC 05/12 PO 05/17 1159 0550 Lorazepam 1 MG Q6 05/10 1200 DC 05/11 PO 1114 Lorazepam 1 MG Q2P PRN 05/08 1215 AC 05/10 IV 1804 Magnesium Oxide 400 MG DAILY 05/08 1214 AC 05/12 PO 0842 Metoprolol Tartrate 25 MG BID 05/09 900 AC 05/12 PO 0843 Multivitamins 1 TAB DAILY 05/08 1211 AC 05/12 PO 0843 Nicotine 14 MG DAILY 05/09 1430 AC 05/12 TOP 0843 Ondansetron HCl 4 MG Q8P PRN 05/08 1215 AC IV Quetiapine Fumarate 300 MG AT BEDTIME 05/10 2100 AC 05/11 PO 2003 Quetiapine Fumarate 50 MG TID 05/10 900 AC 05/12 PO 0842 Tiotropium Fletcher 1 PUF DAILY 05/08 09 AC 05/12 INH 0843 Assessment/Plan Assessment: 58 year old woman with multiple medical problems significant for EtOH abuse, sinus tachycardia, CAD/OR, and metastatic lung cancer status post treatment brought in by ambulance for alcohol intoxication and altered mental status. Patient's tachycardia is improving with increased dose of metoprolol. Blood pressure is remaining in a normal range. Over the past 24 hours patients CIWA Max was 2 requiring no IV Ativan PRN currently on on ativan 0.5mg q8h. Patient is stable for transfer to inpatient psych (involuntary) admission once bed is available. Problems: 1. Alcohol detox 2. Suicidal Ideations, cannot leave AMA 3. COPD 4. CAD Plan: Admitted to [facility] protocol Ativan decrased to 0.5mg BID Per psychiatry: tapering seroquel, increased lexapro to 30mg, and started on buspar 5mg BID for alcohol cravings Continue safety monitor Continue Metoprolol Tartrate to 25 mg PO BID today Continue Thiamine / Folate / Multivitamin Continue home meds: aspirin, atorvastatin, advair, gabapentin, spiriva Pain control with acetaminophen Diet: Regular (finger foods only due to SI) DVT PPx: lovenox Code: Full code Dispo: discharge to inpatient psych today. Problem List: 1. Alcohol intoxication 2. Suicidal ideation Pain Ratin Pain Location: n/a Pain Goal: Remain pain free Pain Plan: per pain pathway Tomorrow's Labs & Rationales: none -dc to inpatient psych today Jonnathan Roberts MD 05/12/18 1111: Attending MD Review Statement Attending Statement Attending MD Statement: examined this patient, discuss w/resident/PA/PILATES COORDINATOR, agreed w/resident/PA/PILATES COORDINATOR, reviewed EMR data (avail), discussed with nursing, discussed with case mgmt, amended to note Attending Assessment/Plan: Patient seen and examined. Lying in bed mildly agitated anxious about her ongoing care. No significant events overnight reported by nursing staff. She remains alert and oriented 3. Case discussed with the psychiatric service. She will be transferred to the inpatient psychiatric unit for further management. Patient is in agreement with this. Dr. Livia Scott contacted her radiation oncologist and provided educational for inpatient psychiatric admission. They are in agreement with the patient receiving the required psychiatric treatment. She is to follow-up with the radiation oncology service following discharge for further management of her recurrent lung cancer.
[2018-05-12] MEDS ORDERED: ATIVAN0.5 M1 PO (11:13)
[2018-05-12] MEDS ORDERED: QUETIAPINE FUM100 M1 PO (11:13)
[2018-05-12] MEDS ORDERED: SEROQUEL50 M1 PO (11:13)
[2018-05-12 13:18] VITALS: BP 130/70
[2018-05-12] MEDS ORDERED: LEXAPRO20 M1 PO (17:13)
[2018-05-12] MEDS ORDERED: SEROQUEL100 M1 PO (17:19)
[2018-05-12] MEDS ORDERED: SEROQUEL400 M1 PO (17:21)
== END 2018-05-12 16:15 | DRG 897 ==
LOC: ERH 21:00 → ERHI 05-08 11:13 → 2NA 05-08 11:13 → ENRESERV 05-08 12:32 → ENTRNSPT 05-08 13:37 → EDTRNSPTSTS 05-08 13:45 → EDTRNSPT 05-08 13:45 → 2NA 05-08 13:52 → CMPTRNSPT 05-08 14:17 → ENPENDDIS 05-12 11:19 → 2NA 05-12 11:32
PROVIDERS: Emergency Medicine; Internal Medicine Interventional Cardiology
DX: F10.239 Alcohol dependence with withdrawal, unspecified (principal); R45.851 Suicidal ideations; C34.90 Malignant neoplasm of unspecified part of unspecified bronchus or lung; I51.81 Takotsubo syndrome; Z85.841 Personal history of malignant neoplasm of brain; Z92.21 Personal history of antineoplastic chemotherapy; Z92.3 Personal history of irradiation; J44.9 Chronic obstructive pulmonary disease, unspecified; I25.10 Atherosclerotic heart disease of native coronary artery without angina pectoris; I25.2 Old myocardial infarction; Z85.118 Personal history of other malignant neoplasm of bronchus and lung; Z87.891 Personal history of nicotine dependence; F41.9 Anxiety disorder, unspecified; F32.9 Major depressive disorder, single episode, unspecified
CPT/HCPCS: 2NAP; 36592; 71046; 80307; 82436; 93005; 93010; 96361; 96374; 96375; 96376; G0480; J0131; J1650; J2405; J2765; J3490

== ENCOUNTER 2018-05-12 11:16 | Inpatient (IN) | payer OTHER, MEDICARE ==
[~2018-05-12] VITALS: Ht 162.6 cm; Wt 68.5 kg
[~2018-05-12 11:16] MED LIST changes: +ATIVAN0.5 M1 PO; +BUSPIRONE HCL5 M1 PO; +FOLIC ACID1 M1 PO; +LEXAPRO10 M1 PO; +NICOTINE PATCH1 EAC2 TOP; +QUETIAPINE FUM100 M1 PO; +SEROQUEL50 M1 PO
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
[2018-05-12 16:26] VITALS: BP 128/91
[2018-05-12] MEDS ORDERED: LEXAPRO20 M1 PO (17:13)
[2018-05-12] MEDS ORDERED: SEROQUEL100 M1 PO (17:19)
[2018-05-12] MEDS ORDERED: SEROQUEL400 M1 PO (17:21)
[2018-05-12 20:02] VITALS: BP 142/92
[2018-05-13 08:00] VITALS: BP 111/71
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
--- NOTE | 2018-05-13 08:29 | PN- Att Addend ---
Attending Addendum Attending Brief Note Brief Admission Note- Transferred from Medicine Service S: The patient is a 58 yo female with h/o EtOH abuse, metastatic lung ca (brain metastases), s/p craniotomy/XRT/chemotherapy (2013) and new lung tumor, COPD, depression, CAD/AZ & Takosubo cardiomyopathy who was originally admitted to the medical service here at [facility] on 05/08/18 for intoxication and altered mental status. She expressed that she "wanted to " in the ED. She underwent Ativan detox on the medical service and was transferred to [facility] on 05/12 for further psychiatric evaluation. Psychiatry evaluation was done as inpatient and her Seroquel had been discontinued and Lexapro increased. She was also begun on Buspar. O: VS: Vital Signs Date Time Temp Pulse Resp B/P B/P Pulse O2 O2 Flow FiO2 Mean Ox Delivery Rate 05/13 1236 85 104/72 05/13 0800 98.8 94 111/71 05/13 0759 98.7 96 142/92 Current Medications Sig/John Start time Last Medication Dose Route Stop Time Status Admin Aspirin 81 MG DAILY 05/13 900 AC 05/13 PO 0758 Atorvastatin Calcium 40 MG DAILY 05/13 900 AC 05/13 PO 0759 Budesonide/ 2 PUF BID 05/12 2100 AC 05/13 Formoterol Fumarate INH 0800 Buspirone HCl 5 MG BID 05/12 2100 AC 05/13 PO 0800 Escitalopram Oxalate 20 MG DAILY 05/13 900 CAN PO Escitalopram Oxalate 30 MG DAILY 05/13 09 AC 05/13 PO 0759 Folic Acid 1 MG DAILY 05/13 900 AC 05/13 PO 0758 Gabapentin 1,200 MG BID 05/12 2100 AC 05/13 PO 0759 Metoprolol Succinate 25 MG DAILY 05/14 0900 AC PO Metoprolol Tartrate 25 MG BID 05/12 2100 DC 05/13 PO 0759 Multivitamins 1 TAB DAILY 05/13 900 AC 05/13 Therapeutic PO 0758 Nicotine 14 MG DAILY 05/13 900 AC 05/13 TOP 0914 Nicotine 14 MG ONCE ONE 05/13 0830 CAN TOP 05/13 0831 Quetiapine Fumarate 50 MG TID 05/12 2100 AC 05/13 PO 1503 Quetiapine Fumarate 200 MG AT BEDTIME 05/12 2100 AC 05/12 PO 2144 Physical Exam: HEENT: eyes- PERRLA, EOMI flaca- moist mucosa Neck: no JVD/bruits Chest: slightly diminished breath sounds, clear Cor: RRR nl S1, S2 w/o murm Abd: BS+, soft, NT Ext: no edema Labs/Tests- see inpatient chart Impression/Plan: #Depression/Suicidal Ideation/?Bipolar- as above, patient with multiple stressors. Plan: Admitted to [facility] for further evaluation. #EtOH Dependence/Withdrawal- underwent detox on medical service. No tremor or other symptoms at present. Plan: Continue counseling. Continue MVI, folate, Gabapentin, etc. Further detox as per psych. #CAD/Hyperlipidemia- no c/o chest pain. Plan: Continue Metoprolol/ASA/Atorvastatin. #COPD- on Advair/Spiriva at home. Now on Symbicort (instead of Advair). Plan: Will continue Symbicort/Spiriva.
[2018-05-13 12:36] VITALS: BP 104/72
--- NOTE | 2018-05-13 16:33 | SOCIAL WORKER PROG NOTE PSYCH ---
Social Work Progress Note Progress Note Kavita reported feeling very fatigued this afternoon and needed to go to her room and rest. She was up earlier in the day and attended a couple of groups. She was happy to know Dr. Foote from past tx placement at [facility]. She was there in 2016. She said her daughter has been very concerned about her drinking and her safety. She understands why her daughter is scared. She shared that she has been going through some medical problems. She has been diagnosed with brain cancer and lung cancer. She has been treated and was in remission, but recently her providers have concerns that it has come back. She works with [facility]. She is supposed to have radiation tx on her left upper lung. She reports having been very depressed. She denies having SI when sober. Admitted to making a statement while intoxicated that she wanted to kill herself. She reports her mood is okay today. Denies feeling sad or having SI. She denies any anxiety. She stated she just needs to be able to stay sober and get to meetings. She reports long periods of sobriety. She doesn't feel she can do a rehab at this time, due to her ongoing medical concerns. She is open to going to IOP and shared that she had completed the [facility] successfully. She is currently in tx at [facility], but hasn't seen her therapist in a while. She said she had a medication appt. scheduled for today, but rescheduled it for 05/25. She is open to having a family meeting with her daughter. Called daughter Kimberley. She was not available to participate in a family meeting until Saturday. We scheduled something for 11am.
[2018-05-13 16:40] VITALS: BP 137/84
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
[2018-05-13 20:13] VITALS: BP 144/80
[2018-05-14 08:30] VITALS: BP 145/70
--- NOTE | 2018-05-14 09:14 | CP SOUTH PROGRESS NOTE PSYCH ---
Psych (Inpt) Progress Note Progress Note Laboratory Tests Hemoglobin A1c (4.2 - 5.8 %) 5.5 Triglycerides (<150 mg/dL) 76 Cholesterol (<200 MG/DL) 250 H LDL Cholesterol, Calc (65 - 129 mg/dL) 136 H HDL Cholesterol (40 - 60 mg/dL) 99 H Cholesterol/HDL Ratio (0.00 - 4.23 %) 3 Vital Signs Date Time Temp Pulse B/P B/P Pulse O2 FiO2 05/14 1245 93 115/68 05/14 0830 98.2 92 145/70 05/14 0821 96 144/80 05/13 2013 98.2 96 144/80 05/13 1640 97 137/84 Mental Status Examination The patient was alert and oriented to time, place, and person. Pt. showed normal psychomotor activity. There were no abnormal or bizarre behaviors. Pt's speech was normal. It was not pressured and it was not slurred. pt. was steady on her feet. Patient was calm and cooperative. The patient showed reasonable range of affect. She described her mood as anxious. Denied feeling depressed at the present time. Pt. denied suicidal ideation. The patient denied homicidal ideation. Pt. denied hallucinations. Patient denied feeling paranoid, there were no delusions during the interview. Patient was coherent and there were no difficulties with her thought organization. Her judgment is reasonably intact in hypothetical situations however it seems that her judgment and real life is directly dependent on his sobriety. Pt. showed good attention and concentration. Patient did not exhibit short-term memory deficits during the interview. Assessment: 58-year-old white female who presents from the medical floor after detoxification there. The patient was admitted on a physician emergency certificate because of concerns about her safety after her discharge from the medical floor. The patient does not feel that she needs to be in the psychiatric unit and denies thoughts of suicide and denies thoughts of violence or homicide. Diagnoses): Unspecified bipolar disorder F10.10 Alcohol use disorder, severe, recurrent F41.1 Generalized anxiety d/o, severe Rule out substance-induced mood disorder History of benzodiazepine use disorder, severe. Other specified personality disorder (mixed cluster B) Treatment Plan Update: Buspirone HCl 5 MG BID Escitalopram Oxalate 30 MG DAILY Folic Acid 1 MG DAILY Gabapentin 1,200 MG BID Ibuprofen 400 MG Q6P PRN PO Metoprolol Succinate 25 MG DAILY Multivitamins 1 TAB DAILY Therapeutic PO Nicotine 14 MG DAILY TOP Quetiapine Fumarate 50 MG TID PO Quetiapine Fumarate 200 MG AT BEDTIME PO Tiotropium [place] 1 PUF DAILY INH PO 0826 Quetiapine Fumarate 200 MG AT BEDTIME 05/12 2100 AC 05/13 PO 2116 Tiotropium [place] 1 PUF DAILY 05/13 1556 AC 05/14 INH 0819
--- NOTE | 2018-05-14 11:19 | SOCIAL WORKER PROG NOTE PSYCH ---
Social Work Progress Note Progress Note Kavita and I spoke this morning about her family meeting planned with her daughter for Saturday. Her daughter needs to change it to 1pm. I told her that was fine. She said she is happy her daughter is able to come. She feels she needs to understand more about her medications and what is going on with her. She feels well today. Reports mood is stable. Talked about IOP at [facility] vs. [facility]. I told her [facility] doesn't offer IOP for Medicare folks. She prefers [facility]. I told her that there would be a co-pay. She would need to set up a payment plan. She mentioned discharging Saturday and going to her brain scan appt. She didn't think she could have her intake at [facility] until . She then said she wasn't sure how she would coordinate her cancer tx with [facility]. This is something we can talk more about later this week with her daughter. She said she went to the AA meeting last night and plans to go to the meeting tomorrow. Talked about how she feels so much clearer and realizes that alcohol is not helping her feel better. Affect is calm, cooperative, pleasant today.
[2018-05-14 12:45] VITALS: BP 115/68
[2018-05-14 16:11] VITALS: BP 119/74
[2018-05-14 19:34] VITALS: BP 118/80
--- NOTE | 2018-05-15 02:56 | CP SOUTH PROGRESS NOTE PSYCH ---
Psych (Inpt) Progress Note Progress Note Vital Signs Date Time Temp Pulse B/P 05/15 0741 98.3 99 128/87 05/15 0736 98.3 99 128/87 Mental Status Examination The patient was alert and oriented to time, place, and person. Pt. showed normal psychomotor activity, there were no abnormal or bizarre behaviors, speech was normal/not pressured and it was not slurred. pt. was steady on her feet, calm and cooperative. The patient showed reasonable range of affect, described her mood as anxious, denied feeling depressed at the present time. Pt. denied suicidal ideation. The patient denied homicidal ideation, denied hallucinations, denied feeling paranoid, there were no delusions during the interview. Patient was coherent and there were no difficulties with her thought organization. showed good attention and concentration. Patient did not exhibit short-term memory deficits during the interview. Assessment: 58-year-old white female who presents from the medical floor after detoxification there. The patient was admitted on a physician emergency certificate because of concerns about her safety after her discharge from the medical floor. The patient does not feel that she needs to be in the psychiatric unit and denies thoughts of suicide and denies thoughts of violence or homicide. Diagnoses: Unspecified bipolar disorder F10.10 Alcohol use disorder, severe, recurrent F41.1 Generalized anxiety d/o, severe Rule out substance-induced mood disorder History of benzodiazepine use disorder, severe. Other specified personality disorder (mixed cluster B) Treatment Plan Update: Change Quetiapine Fumarate to 50 mg QAM and 300 mg QHS Escitalopram Oxalate 30 MG DAILY Folic Acid 1 MG DAILY Gabapentin 1,200 MG BID Ibuprofen 400 MG Q6P PRN Metoprolol Succinate 25 MG DAILY Folic Acid 1 MG DAILY Gabapentin 1,200 MG BID Ibuprofen 400 MG Q6P PRN Metoprolol Succinate 25 MG DAILY Multivitamins 1 TAB DAILY Quetiapine Fumarate 50 MG TID Ibuprofen 400 MG Q6P PRN PO Metoprolol Succinate 25 MG DAILY Multivitamins 1 TAB DAILY Therapeutic PO Nicotine 14 MG DAILY TOP Quetiapine Fumarate 50 MG TID PO Quetiapine Fumarate 200 MG AT BEDTIME PO Tiotropium [place] 1 PUF DAILY INH DICTATED BY: Dary PANIAGUA,Lee
[2018-05-15 07:36] VITALS: BP 128/87
[2018-05-15 12:17] VITALS: BP 131/83
[2018-05-15 15:53] VITALS: BP 104/71
--- NOTE | 2018-05-15 16:20 | SOCIAL WORKER PROG NOTE PSYCH ---
Social Work Progress Note Progress Note Kavita talked about getting all of her medical appts. scheduled. She is working on planning out her week for next week and writing everything down. She tends to get very overwhelmed and worked up about everything she has going on, so this seems like a helpful strategy for her. She is interested in having an IOP intake on Saturday and stated she thinks she can commit to the 5-8 dual track, because her medical appts. will be during the day. She is continuing to have cravings for alcohol. We talked about talking with the doctor about Naltexone or something for cravings. She has been on it in the past, but states she hasn' t given it a fair chance. She talked alot about the various stressors including her Mother's recent passing, family conflict between her Sister and Brother, and her medical issues. She feels that the common theme for her is anger about all of it. These are also things that have happened that are out of her control. She said she uses alcohol to not think about these issues. At this time she is talking about her commitment to AA and IOP and keeps insisting it will be the only way to help her remain sober. She is looking forward to the meeting with her daughter tomorrow at 1pm.
[2018-05-15 20:08] VITALS: BP 140/88
[2018-05-16 07:43] VITALS: BP 100/68
--- NOTE | 2018-05-16 08:23 | CP SOUTH PROGRESS NOTE PSYCH ---
Psych (Inpt) Progress Note Progress Note Treatment team (EMILY, RN, OTR/L & Activities Therapist, Psychiatrist) discussed the Pt.'s progress, treatment plan, and aftercare plans. Vital Signs Date Time Temp Pulse B/P B/P 05/16 1242 89 122/79 05/16 1222 89 122/79 05/16 0958 106/62 05/16 0743 98.3 88 100/68 05/15 2008 98.7 98 140/88 Mental Status Examination The patient was alert and oriented to time, place, and person. Pt. showed normal psychomotor activity, there were no abnormal or bizarre behaviors, speech was normal/not pressured and it was not slurred, calm and cooperative. The patient showed reasonable range of affect, mood was "good" , denied feeling depressed at the present time. Pt. denied suicidal ideation, denied homicidal ideation, denied hallucinations, denied feeling paranoid, there were no delusions during the interview. Patient was coherent and there were no difficulties with her thought organization. showed good attention and concentration. Patient did not exhibit short-term memory deficits. Assessment: 58-year-old white female who presents from the medical floor after detoxification there. The patient was admitted on a physician emergency certificate because of concerns about her safety after her discharge from the medical floor. The patient does not feel that she needs to be in the psychiatric unit and denies thoughts of suicide and denies thoughts of violence or homicide. Diagnoses: Unspecified bipolar disorder F10.10 Alcohol use disorder, severe, recurrent F41.1 Generalized anxiety d/o, severe Rule out substance-induced mood disorder History of benzodiazepine use disorder, severe. Other specified personality disorder (mixed cluster B) Treatment Plan Update: D/C Buspar Start Naltrexone 50 mg daily Continue Quetiapine Fumarate 50 mg QAM and 300 mg QHS Continue Escitalopram Oxalate 30 mg daily Gabapentin 1,200 MG BID
[2018-05-16 09:58] VITALS: BP 106/62
--- NOTE | 2018-05-16 11:09 | SOCIAL WORKER PROG NOTE PSYCH ---
Social Work Progress Note Progress Note Completed Transfer to [facility]. Faxed to [facility].
[2018-05-16 12:22] VITALS: BP 122/79
[2018-05-16 16:04] VITALS: BP 114/79
--- NOTE | 2018-05-16 16:05 | SOCIAL WORKER PROG NOTE PSYCH ---
Social Work Progress Note Progress Note Kavita's daughter left a message asking to meet at 3pm instead of 1pm due to work. Let her know this would be okay. Kimberley (daugther), Kavita, and I met at 3pm. We started the meeting by talking about Shani's progress. Her daughter stated that she was concerned about Kavita taking her meds as prescribed and that she would like to help her set them up in a box for the week and watch her take them. Shani had no issues with that and said that was fine. We talked about her going to dual IOP here at [place] due to following up on her medical issues. Her daughter said she wishes her Mother could have gone to rehab but understands why she can't right now. Kimberley expressed her concerns in relation to her alcohol use and told her that she is consuming and effecting her whole life and it's becoming too much for her. As she talked she was looking more and more upset. She then stated that Shani and her were doing better when they lived in [place], because that is where her friends and supports are. She then told Shani that she was moving in the next 60 days. I asked what the pressure to move was about? She started to go on a rant about how nothing is working for her here and she needs to leave. Kavita started asking questions about her going to live with her boyfriend and if she was going to be part of the living situation and if she was if the rent was going to be split 3 ways? Kavita was very appropriate and only trying to discuss her daughter's thoughts about things. Her daughter got very agitated and started going back and forth about how she can't do this anymore, she can't live with her, and how she (Shani) has to stop being so controlling. Her daughter's affect and behavior got increasingly aggessive, she pound her fist on the table and got up out of her chair. She then stated "I can't be here doing this." I told her that it would be best if we ended the meeting. Kavita didn't really want to, but it was clear that the daughter was not calm and was not able to tolerate a reasonable conversation. Kavita hugged her daughter and said goodbye. Shani and I then processed what just happened. Shani was begging to call her daughter to have her come back. I told her that was not happening today. I told her we could try and meet again Saturday morning. She said her daughter is often like this and that they have a very "toxic" relationship. I asked if her daughter has mental health issues? She said that she does, but doesn't get tx for it. It seems that her daughter gets agitated very quickly and then settles down. Kavita ended up calling her daughter and told her she loved her. They talked for a couple of minutes and agreed to meet again prior to d/c on Saturday.
[2018-05-16 19:56] VITALS: BP 152/83
[2018-05-17 07:48] VITALS: BP 140/77
[2018-05-17 12:23] VITALS: BP 105/70
--- NOTE | 2018-05-17 15:30 | CP SOUTH PROGRESS NOTE PSYCH ---
Psych (Inpt) Progress Note Progress Note Include the following elements, when applicable: Involvement in the active treatment of the patient with behavioral observations of the patient and the patient's response to the treatment. Review of the ongoing treatment process in the context of the treatment plan. Indication of how multi-disciplinary staff members are carrying out the treatment plan. Plans for future interventions and recommendations for revision of the treatment plan. Liaison with other physicians/providers. Progress Note: Chart reviewed. Progress discussed with nursing staff. Interviewed patient this morning. Patient reports feeling "well", looks forward to discharge. "I feel good. The most important thing to me right now is making sure I don't lose my good seat by the tv!" Vitals and labs reviewed. Findings are: vitals wnl. No new labs. Mental status exam: Well groomed well apeparing CF dressed appropriately. Good EC. Speech wnl. Mood "good". Affect euthymic. TP log/maria teresa, content without SI/HI. Denies percept disturbance. Cog intact. I/J fair. Assessment and plan: Appears to continue to be improving. Continue current management as per primary team.
[2018-05-17 15:56] VITALS: BP 125/56
[2018-05-17 19:57] VITALS: BP 106/62
[2018-05-18 07:43] VITALS: BP 137/76
--- NOTE | 2018-05-18 11:22 | CP SOUTH PROGRESS NOTE PSYCH ---
Psych (Inpt) Progress Note Progress Note Include the following elements, when applicable: Involvement in the active treatment of the patient with behavioral observations of the patient and the patient's response to the treatment. Review of the ongoing treatment process in the context of the treatment plan. Indication of how multi-disciplinary staff members are carrying out the treatment plan. Plans for future interventions and recommendations for revision of the treatment plan. Liaison with other physicians/providers. Progress Note: Chart reviewed. Progress discussed with nursing staff. Interviewed patient this morning. Patient reports feeling "well", looks forward to discharge. Says that she is planning on taking a nap this morning. Denies SI/HI or med SEs. Vitals and labs reviewed. Findings are: vitals wnl. No new labs. Mental status exam: Well groomed well apeparing CF dressed appropriately. Good EC. Speech wnl. Mood "good". Affect euthymic. TP log/maria teresa, content without SI/HI. Denies percept disturbance. Cog intact. I/J fair. Assessment and plan: Appears to continue to be improving. Plan for d/c this week. Continue current management as per primary team.
[2018-05-18 12:28] VITALS: BP 121/79
[2018-05-18 15:43] VITALS: BP 106/70
[2018-05-18 19:55] VITALS: BP 128/87
[2018-05-19] MEDS ORDERED: NALTREXONE HCL50 M1 PO (07:34)
[2018-05-19] MEDS ORDERED: LEXAPRO20 M1 PO (07:34)
[2018-05-19] MEDS ORDERED: GABAPENTIN600 M1 PO (07:34)
[2018-05-19] MEDS ORDERED: QUETIAPINE FUM100 M1 PO (07:37)
[2018-05-19] MEDS ORDERED: SEROQUEL50 M1 PO (07:37)
[2018-05-19 07:41] VITALS: BP 118/76
--- NOTE | 2018-05-19 07:48 | Patient Discharge Instructions ---
Psych Discharge Inst General Discharge Information Reason for Admission: Daughter believed that patient wanted to Psy Discharge Primary Diag+ Unspecified Bipolar DO Generalized Anxiety DO Psy Discharge Secondary Diag+ Alcohol Use Disorder Summary Tests/Major Procedures Lab Cholesterol 250 MG/DL H 05/14/18 0545 Cholesterol/HDL Ratio 3 % 05/14/18 0545 HDL Cholesterol 99 mg/dL H 05/14/18 0545 Hemoglobin A1c 5.5 % 05/14/18 0545 LDL Cholesterol, Calc 136 mg/dL H 05/14/18 0545 Triglycerides 76 mg/dL 05/14/18 0545 Studies Pending at DC: None Patient Instructions Contact Information Your Psychiatrist on [facility] was Dary PANIAGUA,Lee * If you are experiencing an emergency related to this hospitalization, please call [phone] to contact the treating psychiatrist or the psychiatrist-on- call. * To Request a copy of your medical records, please contact the Medical Records Department at [phone]. * To request results of studies pending at the time of discharge, please call [phone]. * Continue your Medications until directed to stop by your Healthcare provider. General Medication Information Please continue to take your new medications and your continued home medications , unless otherwise indicated on your discharge medication list, or unless directed by your MD or PARKING ENFORCEMENT MANAGER to stop them. Special Instructions Diet Regular Activity Normal - Tobacco Use Treatment Offered Post DC Medications Offered: Refused Tob Medication Tx Post DC Tobacco Treatment Plan: Refused Tobacco Tx Pgm - EtOH/Drug Use D/O Treatment Offered Post DC Medications Offered: Script Given-See Med List Post DC EtOH/SubAbuse [place] Plan: [place] SubAbuse/Dual IOP Advance Directives Does the Patient have Medical Advance Directives No/Refused further info Does Pt have Psychiatric Advance Directives? No/Refused further info Does Patient have a Designated Surrogate Decision Maker: No Information About Psychiatric Advance Directives Provided? Refused Discharge Plan Post Hospital Treatment Plan: [facility]-IOP-Dual evening program
[2018-05-19 07:57] VITALS: BP 118/76
--- NOTE | 2018-05-19 07:57 | CP SOUTH PROGRESS NOTE PSYCH ---
Psych (Inpt) Progress Note Progress Note I reviewed Dr. Kingston's notes from the weekend of May 17 and 2017. Treatment team (EMILY, RN, OTR/L & Activities Therapist, Psychiatrist) discussed the Pt.'s progress, treatment plan, and aftercare plans. Vital Signs Date Time Temp Pulse B/P B/P 05/19 0757 97.8 86 118/76 05/19 0741 97.8 86 118/76 05/18 1955 98.3 83 128/87 Mental status examination: Patient reports feeling "well" and looking forward to discharge today. Patient reported that she has not had any thoughts of suicide over the weekend. She reported that she is not feeling hopeless or worthless or wishing . Patient seems to be in good spirits with a good range of affect. She was coherent, there was no thought disorder, she denied hallucinations denied feeling paranoid and there were no delusions during the interview. Kavita was well groomed and dressed appropriately. She showed good eye contact and her speech wnl. Mood "good". Affect euthymic. She was alert and oriented to time, place, and person. There was no evidence of short-term memory impairment and no deficits in her information processing. Assessment Kavita is a 58-year-old White female who presents from the medical floor after detoxification there. The patient was admitted on a physician emergency certificate because of concerns about her safety after her discharge from the medical floor. The patient does not feel that she needs to be in the psychiatric unit and denied thoughts of suicide and denies thoughts of violence or homicide. Kavita was admitted to the psychiatric unit on 05/12/2018, since then she has some shown significant improvement in her mood and outlook on life. She has been denying thoughts of suicide all along. She seems to be ready for discharge today and she is looking forward to that. Patient plans to do the intensive outpatient program, dual diagnosis track, evening hours after her discharge. plan: Discharge home with follow-up as intensive outpatient program (IOP) the dual track/ Evening
--- NOTE | 2018-05-19 10:41 | DISCHARGE SUMMARY REPORT-PSYCH ---
Visit Information Visit Dates/Diagnosis' Admission Date: 05/12/18 Discharge Date: 05/19/18 Reason for Admission: Daughter believed that patient wanted to Psy Discharge Primary Diag: Unspecified Bipolar DO Generalized Anxiety DO Psy Discharge Secondary Diag: Alcohol Use Disorder Hospital Course Course Allergies: Coded Allergies: No Known Allergies (04/11/18) Hospital Course/TX Response: 05/19/2018: I reviewed Dr. Kingston's notes from the weekend of May 17 and 2017. Treatment team (EMILY, RN, OTR/L & Activities Therapist, Psychiatrist) discussed the Pt.'s progress, treatment plan, and aftercare plans. Vital Signs Date Time Temp Pulse B/P B/P 05/19 0757 97.8 86 118/76 05/19 0741 97.8 86 118/76 05/18 1955 98.3 83 128/87 Mental status examination: Patient reports feeling "well" and looking forward to discharge today. Patient reported that she has not had any thoughts of suicide over the weekend. She reported that she is not feeling hopeless or worthless or wishing . Patient seems to be in good spirits with a good range of affect. She was coherent, there was no thought disorder, she denied hallucinations denied feeling paranoid and there were no delusions during the interview. Kavita was well groomed and dressed appropriately. She showed good eye contact and her speech wnl. Mood "good". Affect euthymic. She was alert and oriented to time, place, and person. There was no evidence of short-term memory impairment and no deficits in her information processing. Assessment Kavita is a 58-year-old White female who presents from the medical floor after detoxification there. The patient was admitted on a physician emergency certificate because of concerns about her safety after her discharge from the medical floor. The patient does not feel that she needs to be in the psychiatric unit and denied thoughts of suicide and denies thoughts of violence or homicide. Kavita was admitted to the psychiatric unit on 05/12/2018, since then she has some shown significant improvement in her mood and outlook on life. She has been denying thoughts of suicide all along. She seems to be ready for discharge today and she is looking forward to that. Patient plans to do the intensive outpatient program, dual diagnosis track, evening hours after her discharge. plan: Discharge home with follow-up as intensive outpatient program (IOP) the dual track/ Evening Discharge HBIPS - Tobacco Use Treatment Offered - EtOH/Drug Use D/O Treatment Offered Metabolic Screening - Screen if on a Neuroleptic Medication - Metabolic screening should include: - Blood Pressure, BMI, Glucose or Hgb A1c, & a - Lipid profile from within the past 365 days. Discharge Instructions General Discharge Information Discharge Diet Regular Discharge Activity Normal Referrals Ordered Referrals INTENSIVE OUTPT PSY-SUBSTANCE 05/21/18 [address] [address] [facility] Intensive Outpatient Services Intake 05/21/18 11:30am [address] [place] [address] Prescriptions Stop taking the following medications: Nicotine (Nicotine Patch) 14 MG/24 HOUR PATCH.TD24 On the skin DAILY Qty = 30 Lorazepam (Ativan) 0.5 MG TABLET ORAL SEE INSTRUCTIONS Qty = 20 Folic Acid (Folic Acid) 1 MG TABLET ORAL DAILY Qty = 30 Thiamine HCl (Vitamin B-1) 100 MG TABLET ORAL DAILY Qty = 30 Buspirone HCl (Buspirone HCl) 5 MG TABLET ORAL TWICE DAILY Qty = 30 Quetiapine Fumarate (Seroquel) 50 MG TABLET ORAL THREE TIMES DAILY Qty = 30 Lorazepam (Ativan) 0.5 MG TABLET ORAL DAILY Qty = 2 Escitalopram Oxalate (Lexapro) 20 MG TABLET ORAL DAILY Quetiapine Fumarate (Seroquel) 100 MG TABLET ORAL THREE TIMES DAILY Quetiapine Fumarate (Seroquel) 400 MG TABLET ORAL AT BEDTIME Escitalopram Oxalate (Lexapro) 10 MG TABLET ORAL DAILY Qty = 30 Continue taking these medications: Aspirin (Aspirin*) 81 MG TAB.CHEW 1 Tablet ORAL DAILY Qty = 30 Comments: Last Taken:05/19/18 Time:8AM Atorvastatin Calcium (Lipitor) 40 MG TABLET 1 Tablet ORAL DAILY Comments: Last Taken:05/19/18 Time:8AM Fluticasone/Salmeterol (Advair 250-50 Diskus) 250 MCG-50 MCG/DOSE BLST.W.DEV 1 Puff Inhale through mouth TWICE DAILY Comments: Last Taken:8AM..05/19/18 Time:SUBSTITUTED WITH SYMBICORT IN HOSPITAL Tiotropium [place] (Spiriva) 18 MCG CAP.W.DEV 1 Capsule Inhale through mouth DAILY Comments: Last Taken:05/19/18 Time:8AM Metoprolol Tartrate (Metoprolol Tartrate) 25 MG TABLET 1 Tablet ORAL TWICE DAILY Qty = 30 Comments: Last Taken:05/19/18 Time:8AM Multivitamin (One Daily Multivitamin) 1 EACH TABLET 1 Tablet ORAL DAILY Qty = 30 Comments: Last Taken:05/19/18 Time:8AM Gabapentin (Gabapentin) 600 MG TABLET 2 Tablet ORAL TWICE DAILY Qty = 120 Comments: Last Taken:05/19/18 Time:8AM This prescription has been renewed Quetiapine Fumarate (Quetiapine Fumarate) 100 MG TABLET 300 Milligram ORAL AT BEDTIME Qty = 30 Comments: Last Taken:05/18/18 Time:9:30PM This prescription has been renewed Start taking the following new medications: Naltrexone HCl (Naltrexone HCl) 50 MG TABLET 50 Milligram ORAL DAILY Qty = 14 No Refills Comments: Last Taken:05/19/18 Time:8AM Quetiapine Fumarate (Seroquel) 50 MG TABLET 50 Milligram ORAL DAILY Qty = 15 No Refills Comments: Last Taken:05/19/18 Time:8AM Escitalopram Oxalate (Lexapro) 20 MG TABLET 1.5 Tablet ORAL DAILY Qty = 45 No Refills Comments: Last Taken:05/19/18 Time:8AM Studies Pending at Discharge None
--- NOTE | 2018-05-19 10:52 | SOCIAL WORKER PROG NOTE PSYCH ---
Social Work Progress Note Progress Note Kavita and I talked about readiness for d/c today. She is feeling good. Talked about all of her medical appts. coming up this week. Asked if she has been talking to her daughter? She said that she has daily and things are fine between them. There was some frustration with her daughter this morning, as she feels she may be ignoring her phone call. I reflected how they seem to feed off eachother's behavior's and mood and encouraged her to take space and give her daughter space. She acknowledged that this is reflective of their relationship and she has to work on that. Encouraged her to focus on the present and not getting to far ahead of herself. Talked about how talking to other people is helpful to her. She has been talking to her sponsor. Let her know that her [facility] IOP intake is scheduled for 11:30 05/21. Asked if we would be meeting when her daughter comes? She didn't feel that was necessary.
--- NOTE | 2018-05-19 11:44 | SOCIAL WORKER PROG NOTE PSYCH ---
Social Work Progress Note Faxed Referral(s) Referred To: [facility] Transition of Care Documents sent: Health Summary Faxed to: [facility] Fax #: [phone] Faxed by: Vandana Shearer Date faxed: 05/19/18 Time Faxed: [phone]
--- NOTE | 2018-05-20 09:10 | ED PSYCHIATRIST/APRN CONSULT ---
Psychiatrist/CASHIER OFFICE ED Consult Assessment and Plan: Psychiatric consultation Date of consultation 05/20/2018 Reason for consultation: Intoxication hours after discharge from inpatient psych unit History of present illness: Kavita Penaloza is a 58-year-old White Female who was brought back to the emergency department the same day of her discharge. She relapsed to drinking vodka and ended up vomiting and her daughter called the police who brought her in on a police emergency exam request (PEER). The patient was discharged yesterday morning (05/19/2018). Soon after that, the patient relapsed to drinking vodka and got so intoxicated/started vomiting and her daughter called police/ambulance. There was nothing in the police emergency exam request to suggest that the patient has made any statements about suicide or violence or homicide. Pt. has COPD, lung cancer with brain metastases and new lesions, depression anxiety and alcohol use disorder, Pt. stated she did not feel suicidal. Substance Abuse History: The patient has significant alcohol or substance use history. Pt said she was drinking daily prior to her detox a week ago or so. Before her prior medical admission, she was --reportedly--drinking 5-6 nips daily for 2-3 months) on and off for the past 2 years. She went to detox March 10 -March 20, 2017 at [facility]. Pt denies hx of withdrawal seizures. Used cocaine and hallucinogens from age 14 to age 21. She used marijuana from age 14 to age 21 Allergies: No Known Allergies (04/11/18) Family and Social History: She suspects that her mother may have had a bipolar disorder she was also described by the patient as "an addict" and that she was verbally and emotionally abusive Mother had substance use disorder Patient denied completed suicides in the family Rents apartment with her daughter (39 years old, Kimberley) Education: High school diploma Unemployed, disabled History of arrest [place] in 2011 arrested for buying and selling Xanax online charged with possession for intent to sell felony was caught by the post office Mental Status Examination Patient was alert and oriented to time, place, and person. She reported feeling "well" today/not that depressed, and denied feeling hopeless or worthless. Patient reported that she has not had any thoughts of suicide for more than a week now. She reported that she is not feeling anxious or paranoid, denied wishing . Patient seems to be in good spirits with a good range of affect. She was coherent, there was no thought disorder, she denied hallucinations and there were no delusions during the interview. Kavita showed good eye contact. Her speech was normal. There was no evidence of short-term memory impairment and no deficits in her information processing. Assessment Kavita is a 58-year-old White Female who presented to the ED intoxicated only hours after her discharge from the inpatient psychiatric unit. The patient does not need re-admission to the psychiatric unit as there were no thoughts of suicide and denies thoughts of violence or homicide. Patient plans to do the intensive outpatient program, dual diagnosis track, evening hours. 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
== END 2018-05-19 11:24 | DRG 885 ==
LOC: CP SOUTH 11:16 → ENRESERV 23:59 → CP SOUTH 05-14 13:54
PROVIDERS: Psychiatry & Neurology Psychiatry
DX: F31.9 Bipolar disorder, unspecified (principal); F41.9 Anxiety disorder, unspecified; F10.10 Alcohol abuse, uncomplicated
CPT/HCPCS: 36415; J3490

== ENCOUNTER 2018-06-10 04:30 | Emergency (ER) | payer OTHER, MEDICARE ==
[~2018-06-10 04:30] MED LIST changes: +LEXAPRO20 M1 PO; +NALTREXONE HCL50 M1 PO
[2018-06-10 04:40] VITALS: BP 118/96
--- NOTE | 2018-06-10 04:44 | ED GENERAL ADULT ---
History of Present Illness General Chief Complaint: ETOH/Drug Related Complaint Stated Complaint: "IM DRUNK AND IM DRIVING" Source: patient, old records Exam Limitations: no limitations Vital Signs & Intake/Output Vital Signs & Intake/Output Vital Signs Date Time Temp Pulse Resp B/P B/P Pulse O2 O2 Flow FiO2 Mean Ox Delivery Rate 06/10 0440 100 Room Air 06/10 0440 97.1 66 18 118/96 98 Room Air Allergies Coded Allergies: No Known Allergies (06/04/18) Reconcile Medications Aspirin (Aspirin*) 81 MG TAB.CHEW 1 TAB PO DAILY HEART HEALTH Atorvastatin Calcium (Lipitor) 40 MG TABLET 1 TAB PO DAILY CHOLESTEROL ( Reported) Escitalopram Oxalate (Lexapro) 20 MG TABLET 1.5 TAB PO DAILY anxiety/ depression Fluticasone/Salmeterol (Advair 250-50 Diskus) 250 MCG-50 MCG/DOSE BLST.W.DEV 1 PUF INH BID COPD (Reported) Gabapentin 600 MG TABLET 2 TAB PO BID ANXIETY Metoprolol Tartrate 25 MG TABLET 1 TAB PO BID SINUS TACHYCARDIA Multivitamin (One Daily Multivitamin) 1 EACH TABLET 1 TAB PO DAILY VITAMIN Naltrexone HCl 50 MG TABLET 50 MG PO DAILY alcohol cravings Quetiapine Fumarate (Seroquel) 50 MG TABLET 50 MG PO DAILY mood Quetiapine Fumarate 100 MG TABLET 300 MG PO AT BEDTIME DEPRESSION Tiotropium [place] (Spiriva) 18 MCG CAP.W.DEV 1 CAP INH DAILY COPD (Reported) Triage Nurses Notes Reviewed? yes HPI: Patient presents intoxicated states that she feels he cannot drive. Patient denies any homicidal oh suicidal ideations. Past History Travel History Traveled to [place] past 21 day No Medical History Any Pertinent Medical History? see below for history Neurological: NONE EENT: NONE Cardiovascular: CAD, hypertension, hyperlipidemia Respiratory: COPD, emphysema, LUNG CANCER Gastrointestinal: NONE Hepatic: NONE Renal: NONE Musculoskeletal: NONE Psychiatric: alcohol dependence Endocrine: PARTIAL THYROIDECTOMY Blood Disorders: NONE 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, 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 INDUSTRIAL SPECIALIST/Reproductive: NONE History of MRSA: No History of VRE: No History of CDIFF: No Surgical History Surgical History: BRAIN TUMOR REMOVED Psychosocial History Who do you live with Daughter Services at Home None What is your primary language Mongolian Tobacco Use: Quit >30 days ago ETOH Use: alcoholic Illicit Drug Use: denies illicit drug use Family History Family History, If Any: FATHER FH: heart failure Heart attack MOTHER FH: stroke Hx Contributory? No Review of Systems Review of Systems Constitutional: Reports: no symptoms. Respiratory: Reports: no symptoms. Cardiovascular: Reports: no symptoms. GI: Reports: no symptoms. Musculoskeletal: Reports: no symptoms. Neurological/Psychological: Reports: no symptoms. Immunologic/Allergic: Reports: no symptoms. Physical Exam Physical Exam General Appearance: well developed/nourished, alert Head: atraumatic Eyes: Bilateral: PERRL, EOMI. Neck: normal inspection, supple, full range of motion Respiratory: normal breath sounds, chest non-tender, no respiratory distress, lungs clear Cardiovascular: regular rate/rhythm, normal peripheral pulses Neurologic/Psych: no motor/sensory deficits, awake, alert, oriented x 3, normal mood/affect Core Measures ACS in differential dx? No CVA/TIA Diagnosis: No Sepsis Present: No Sepsis Focused Exam Completed? No Progress Differential Diagnoses I considered the following diagnoses in my evaluation of the patient: [Alcohol intoxication] Plan of Care: [facility] Initial ED EKG: none Departure Departure Disposition: HOME OR SELF CARE Condition: Stable Clinical Impression Primary Impression: Alcohol intoxication Referrals: Mariana Majano MD (PCP/Family) Additional Instructions: DO NO T DRINK AND DRIVE RETURN FOR ANY CONCERNS Departure Forms: Customer Survey General Discharge Information Critical Care Note Critical Care Note Critical Care Time: non-applicable
== END 2018-06-10 04:45 ==
LOC: ERH 04:30
DX: F10.129 Alcohol abuse with intoxication, unspecified (principal)

== ENCOUNTER 2018-06-10 05:35 | Emergency (ER) | payer OTHER, MEDICARE ==
--- NOTE | 2018-06-10 05:46 | ED GENERAL ADULT ---
History of Present Illness General Chief Complaint: ETOH/Drug Related Complaint Stated Complaint: LEONOR ETOH INTOXICATION, JUST DISCHARGED FROM ER Source: patient, old records, EMS Exam Limitations: no limitations Vital Signs & Intake/Output Vital Signs & Intake/Output Vital Signs Date Time Temp Pulse Resp B/P B/P Pulse O2 O2 Flow FiO2 Mean Ox Delivery Rate 06/10 1010 Room Air 06/10 0834 115 156/97 06/10 0817 98.4 115 18 156/97 98 Room Air 06/10 0535 98.2 100 18 118/82 97 Room Air 06/10 0535 100 Room Air Allergies Coded Allergies: No Known Allergies (06/04/18) Reconcile Medications Aspirin (Aspirin*) 81 MG TAB.CHEW 1 TAB PO DAILY HEART HEALTH Atorvastatin Calcium (Lipitor) 40 MG TABLET 1 TAB PO DAILY CHOLESTEROL ( Reported) Escitalopram Oxalate (Lexapro) 20 MG TABLET 1.5 TAB PO DAILY anxiety/ depression Fluticasone/Salmeterol (Advair 250-50 Diskus) 250 MCG-50 MCG/DOSE BLST.W.DEV 1 PUF INH BID COPD (Reported) Gabapentin 600 MG TABLET 2 TAB PO BID ANXIETY Metoprolol Tartrate 25 MG TABLET 1 TAB PO BID SINUS TACHYCARDIA Multivitamin (One Daily Multivitamin) 1 EACH TABLET 1 TAB PO DAILY VITAMIN Naltrexone HCl 50 MG TABLET 50 MG PO DAILY alcohol cravings Quetiapine Fumarate (Seroquel) 50 MG TABLET 50 MG PO DAILY mood Quetiapine Fumarate 100 MG TABLET 300 MG PO AT BEDTIME DEPRESSION Tiotropium [place] (Spiriva) 18 MCG CAP.W.DEV 1 CAP INH DAILY COPD (Reported) Triage Note: TRIAGE: LEONOR FROM HOME, WAS DISCHARGED FROM ER AT 0445 W/ [facility]. PATIENT STATES SHE CALLED 911 "BECAUSE I WANT COMPANY AND A PLACE TO SLEEP." SECURITY PAGED FOR [place]. MD JACQUES AT BEDSIDE FOR EVAL. PATIENT REQUESTING MULTIPLE TIMES "CAN YOU GIVE ME SOMETHING TO KNOCK ME OUT PLEASE?" EDUCATED BY MULTIPLE STAFF THAT SHE WILL NOT BE MEDICATED. Triage Nurses Notes Reviewed? yes HPI: Patient was seen in the emergency department: While ago when she presented with alcohol intoxication. Patient received a ride home and when she got home she called the ambulance again because she was feeling so anxious that she could not stay home alone. Patient was recently admitted for alcohol detox was started drinking as soon as she got out. Patient has had multiple ED visits since then. Patient states that she just wants us to give her medication to knock her out. Patient denies any suicidal or homicidal ideations. (Ariadna PANIAGUA,Arnaldo Davalos) Past History Travel History Traveled to [place] past 21 day No Medical History Any Pertinent Medical History? 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 No (Arnaldo Jacques MD) Review of Systems Review of Systems Constitutional: Reports: no symptoms. EENTM: Reports: no symptoms. Respiratory: Reports: no symptoms. Cardiovascular: Reports: no symptoms. GI: Reports: no symptoms. Genitourinary: Reports: no symptoms. Musculoskeletal: Reports: no symptoms. Skin: Reports: no symptoms. Neurological/Psychological: Reports: see HPI, anxiety. Hematologic/Endocrine: Reports: no symptoms. Immunologic/Allergic: Reports: no symptoms. All Other Systems: Reviewed and Negative (Arnaldo Jacques MD) Physical Exam Physical Exam General Appearance: well developed/nourished, alert, awake, anxious Head: atraumatic, normal appearance Eyes: Bilateral: PERRL, EOMI, other (SLUGGISH). Ears, Nose, Throat: normal pharynx, normal ENT inspection Neck: normal inspection, supple, full range of motion Respiratory: normal breath sounds, chest non-tender, no respiratory distress, lungs clear Cardiovascular: regular rate/rhythm, normal peripheral pulses Gastrointestinal: normal bowel sounds, soft, non-tender, no organomegaly Back: normal inspection, normal range of motion Extremities: normal inspection, normal capillary refill, normal range of motion, no edema Neurologic/Psych: no motor/sensory deficits, awake, alert, oriented x 3, normal gait, normal mood/affect Skin: intact, normal color, warm/dry Core Measures ACS in differential dx? No CVA/TIA Diagnosis: No Sepsis Present: No Sepsis Focused Exam Completed? No (Ariadna PANIAGUA,Arnaldo Davalos) Progress Differential Diagnoses I considered the following diagnoses in my evaluation of the patient: [ANXIETY, ALCOHOL DEPENDENCY] Plan of Care: Orders Procedure Date/time Status Regular Diet 06/10 B Active Patient Safety Monitor 06/10 1900 Active Patient Safety Monitor 06/10 1500 Active Patient Safety Monitor 06/10 1100 Active Patient Safety Monitor 06/10 0700 Active URINE DRUGS OF ABUSE 06/10 0545 Complete ETHANOL 06/10 0545 Complete COMPREHENSIVE METABOLIC PANEL 06/10 0545 Complete CBC WITHOUT DIFFERENTIAL 06/10 05 Complete ED CRISIS PSYCH CONSULT 06/10 0545 Active Current Medications Sig/John Start time Last Medication Dose Stop Time Status Admin Aspirin 81 MG DAILY 06/10 900 UNVr 06/10 (Aspirin) 0834 Metoprolol Tartrate 25 MG BID 06/10 900 UNVr 06/10 (Lopressor) 0834 Quetiapine Fumarate 50 MG DAILY 06/10 900 UNVr 06/10 (SEROquel) 0705 Tiotropium [place] 1 PUF DAILY 06/10 900 UNVr 06/10 (Spiriva) 0705 Laboratory Tests 06/10/18 0613: Anion Gap 18 H, Estimated GFR > 60, BUN/Creatinine Ratio 24.3, Glucose 122 H, Calcium 9.7, Total Bilirubin 0.4, AST 22, ALT 36, Alkaline Phosphatase 86, Total Protein 7.6, Albumin 4.5, Globulin 3.1, Albumin/Globulin Ratio 1.5, CBC w Diff NO MAN DIFF REQ, RBC 5.24, MCV 78.3 L, MCH 25.4 L, MCHC 32.5 L, RDW 16.5 H, MPV 7.9, Gran % 82.1 H, Lymphocytes % 10.9 L, Monocytes % 6.5, Eosinophils % 0.2, Basophils % 0.3, Absolute Granulocytes 7.0 H, Absolute Lymphocytes 0.9 L, Absolute Monocytes 0.6, Absolute Eosinophils 0, Absolute Basophils 0, Serum Alcohol 90.0 06/10/18 0603: Urine Opiates Screen < 100, Methadone Screen 72, Barbiturate Screen < 60, Ur Phencyclidine Scrn < 6.00, Amphetamines Screen 304, U Benzodiazepines Scrn < 85, Urine Cocaine Screen < 50, Urine Cannabis Screen < 5.00 Initial ED EKG: none Hand-Off Endorsed To: Eugene Garcia MD Endorsed Time: 0700 Pending: consult (CRISIS) (Arnaldo Jacques MD) Comments: Cleared by psychiatry for discharge. (Eugene Garcia MD) Departure Departure Condition: Stable Clinical Impression Primary Impression: Anxiety Referrals: Mariana Majano MD (PCP/Family) (Arnaldo Jacques MD) Departure Time of Disposition: 1059 Disposition: HOME OR SELF CARE Additional Instructions: Follow up with the recommendations of the caseworker protective services. Departure Forms: General Discharge Information (Eugene Garcia MD) Critical Care Note Critical Care Note Critical Care Time: non-applicable (Arnaldo Jacques MD)
[2018-06-10 06:26] LABS: ABSOLUTE BASOPHIL COUNT 0 /CUMM (0.0-0.2); ABSOLUTE EOSINOPHIL COUNT 0 /CUMM (0.0-0.7); ABSOLUTE LYMPH COUNT 0.9 /CUMM (1.2-3.4); ABSOLUTE MONOCYTE COUNT 0.6 /CUMM (0.10-0.60); BASOPHIL % 0.3 % (0.0-2.0); EOSINOPHIL % 0.2 % (0-5); GRANULOCYTE % 82.1 % (42.2-75.2); HEMATOCRIT 41.1 % (37-47); MEAN CORPUSCULAR HGB 25.4 PG (27.0-31.0); MEAN CORPUSCULAR HGB CONC 32.5 G/DL (33.0-37.0); MEAN CORPUSCULAR VOLUME 78.3 FL (81.0-99.0); MEAN PLATELET VOLUME 7.9 FL (7.4-10.4); PLATELET COUNT 330 /CUMM (130-400); RBC DISTRIBUTION WIDTH 16.5 % (11.5-14.5); RED BLOOD CELL CT 5.24 /CUMM (4.20-5.40); WHITE BLOOD CELL COUNT 8.5 /CUMM (4.8-10.8)
--- NOTE | 2018-06-10 08:29 | ED PSYCH CRISIS CONSULTATION ---
See Addendum Crisis Consult Basic Assessment Date of Consult: 06/10/18 Responsible Person/Accompanied By: self/biba Insurance Authorization: Insurance #1: Insurance name: MEDICARE A Phone number: Policy number: [id number] Group number: Authorization number: ED Provider: Patient's ED Provider: Ariadna PANIAGUA,Arnaldo Davalos Primary Care Physician: Patient's PCP: Mariana Majano MD PCP's Current Psychiatrist: Livia Scott MD Chief Complaint: ETOH/Drug Related Complaint Patient's Quote: I drank again Present Illness: Pt is a 58 yo female presenting to [facility] ED for the 2nd time this morning due to Etoh use. Pt initially drove herself to ED and upon being cleared for discharge returned home and came back an hout later by ambulance. Pt appeared anxious and was requesting a place to sleep. Pt reports having about 5 nips with BAL: 90. Pt is currently active in [facility] but has had 3 relapses since CPS on May 19. Pt has a long hx of alcohol abuse with several detox/rehab episodes since the . Pt denies SI/HI/AH/VH. Pt reports committment to getting sober but states she has a hard time sleeping and gets lonely triggering etoh use. Pt lives with her adult daughter who she reports was out with her bf last night. Pt scheduled to receive last treatment of radiation tomorrow. Pt presents calm, cooperative and Ox3. Pt seen by IOP Coordinator Astrid Steinberg and informed that continued etoh relapse will result in discharge from program. Recommended pt begin calling Medicare rehab programs. Pt reports confidence that she will not drink and plans to attend AA meeting [facility]. Case reviewed with Dr Pete. Recommendation for pt to attend her [facility] program tomorrow and stop using alcohol. Pt verbalized agreement with plan. Patient's Address: [address] [place] [address] Other Phone Number: Who Do You Live With? Daughter Family/Informants Interviewed: voice message left for pt daughter Kimberley Allergies - Coded Allergies: No Known Allergies (06/04/18) Current Medications - Scheduled Medications Aspirin (Aspirin*) 81 MG TAB.CHEW 1 TAB PO DAILY HEART HEALTH #30 TAB Prescribed by Lori Murphy on 06/26/16 Atorvastatin Calcium (Lipitor) 40 MG TABLET 1 TAB PO DAILY CHOLESTEROL ( Reported) Entered as Reported by Lindsey Granda on 02/26/181913 Escitalopram Oxalate (Lexapro) 20 MG TABLET 1.5 TAB PO DAILY anxiety/ depression #45 TAB Prescribed by Lee Foote MD on 05/19/18 Fluticasone/Salmeterol (Advair 250-50 Diskus) 250 MCG-50 MCG/DOSE BLST.W.DEV 1 PUF INH BID COPD (Reported) Entered as Reported by Lindsey Granda on 02/26/181917 Gabapentin 600 MG TABLET 2 TAB PO BID ANXIETY #120 TAB Prescribed by Lee Foote MD on 05/19/18 Metoprolol Tartrate 25 MG TABLET 1 TAB PO BID SINUS TACHYCARDIA #30 TAB Prescribed by Lior Chopra MD on 05/09/18 Multivitamin (One Daily Multivitamin) 1 EACH TABLET 1 TAB PO DAILY VITAMIN #30 TAB Prescribed by Lior Chopra MD on 05/09/18 Naltrexone HCl 50 MG TABLET 50 MG PO DAILY alcohol cravings #14 TAB Prescribed by Lee Foote MD on 05/19/18 Quetiapine Fumarate (Seroquel) 50 MG TABLET 50 MG PO DAILY mood #15 TAB Prescribed by Lee Foote MD on 05/19/18 Quetiapine Fumarate 100 MG TABLET 300 MG PO AT BEDTIME DEPRESSION #30 TAB Prescribed by Lee Foote MD on 05/19/18 Tiotropium [place] (Spiriva) 18 MCG CAP.W.DEV 1 CAP INH DAILY COPD (Reported) Entered as Reported by Lindsey Granda on 02/26/181917 Laboratory Results: Laboratory Tests 06/10/18612: Anion Gap 18 H, Estimated GFR > 60, BUN/Creatinine Ratio 24.3, Glucose 122 H, Calcium 9.7, Total Bilirubin 0.4, AST 22, ALT 36, Alkaline Phosphatase 86, Total Protein 7.6, Albumin 4.5, Globulin 3.1, Albumin/Globulin Ratio 1.5, CBC w Diff NO MAN DIFF REQ, RBC 5.24, MCV 78.3 L, MCH 25.4 L, MCHC 32.5 L, RDW 16.5 H, MPV 7.9, Gran % 82.1 H, Lymphocytes % 10.9 L, Monocytes % 6.5, Eosinophils % 0.2, Basophils % 0.3, Absolute Granulocytes 7.0 H, Absolute Lymphocytes 0.9 L, Absolute Monocytes 0.6, Absolute Eosinophils 0, Absolute Basophils 0, Serum Alcohol 90.0 06/10/18 0603: Urine Opiates Screen < 100, Methadone Screen 72, Barbiturate Screen < 60, Ur Phencyclidine Scrn < 6.00, Amphetamines Screen 304, U Benzodiazepines Scrn < 85, Urine Cocaine Screen < 50, Urine Cannabis Screen < 5.00 Past History Past Medical History Neurological: NONE EENT: NONE Cardiovascular: CAD, hypertension, hyperlipidemia Respiratory: COPD, emphysema, LUNG CANCER Gastrointestinal: NONE Hepatic: NONE Renal: NONE Musculoskeletal: NONE Psychiatric: alcohol dependence Endocrine: PARTIAL THYROIDECTOMY Blood Disorders: NONE 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, 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 Past Surgical History Surgical History: BRAIN TUMOR REMOVED Psychosocial History Strengths/Capabilities: 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 - 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 Physical Limitations (Interventions): cancer / COPD taking her energy Psychiatric Treatment History Psych Treatment Psychiatric Treatment Yes Inpatient Treatment Yes Outpatient Treatment Yes Location of Treatment [facility]; IOP Reason for Treatment etoh/depression/anxiety Dates of Treatment [facility] d/c May 19; active IOP Response to Treatment pt relapse x2 since beginning IOP Diagnosis by History: depression etoh Substance Use/Abuse History Drug Use/Abuse Substances Used/Abused Yes Substance Used/Abused Alcohol Last Used this morning Substance Abuse Treatment Substance Abuse Treatment Past Substance Abuse [place] Yes Inpatient Treatment Yes Outpatient Treatment Yes Location of Treatment [facility]; IOP; [place]; [facility]; [facility] Reason for Treatment etoh Dates of Treatment several inpatients since Response to Treatment pt multiple relapses since d/c May 19 from [facility] Comments: pt denies drug use; pt express wanting to stop etoh use Current Mental Status Mental Status Orientation: Person, Place, Situation Affect: Anxious Speech: WNL Neuro-vegetative: Concentration Poor, Sleep Disturbance Appearance Appearance- Dress/Hygiene: hospital scrubs; appropriately groomed; good eye contact Behaviors Thought Process: WNL Thought Content: WNL Memory: WNL Insight: Fair SI/HI Risk Assessment Past Suicidal Ideation/Attempts Yes Current Suicidal Ideation/Att No Past Homicidal Ideation/Att: No Current Homicidal Ideation/Attempts No Degree of Intent: None Gravely Disabled: Poor Impulse Control, Poor Judgment Risk Factors: access to lethal means, chronic/serious med cond., high anxiety/ distress, history of suicide atmpts, SA/MH hospitalized, substance abuse, poor impulse control Lethality Ratin PTSD Checklist PTSD Done? patient declined ED Management Sitter: Yes Restraints: No DSM5/PS Stressors/Medical Prob Diagnosis' (DSM 5, Stressors, Medical): F32.9 Unspecified Depression F10.20 Alcohol Use Disorder Lung Cancer with brain mets and new lesions COPD Current GAF: 35 Comments: pt upset with herself for relapse but denies SI. Pt reports last radiation treatment scheduled for tomorrow. Pt hesitant to pursue residential rehab services Departure Disposition Psych Medical Clearance Date: 06/10/18 Medically Cleared at: 0745 Time Started: 744 Time Ended: 829 Psychiatrist Consulted: Josi Pete MD Date Disposition Established: 06/10/18 Time Disposition Established: 1045 Plan for Disposition - Modality: IOP Facility: [facility] Follow-up Appt Date: 06/11/18 Rationale for Disposition: Pt will continue attending IOP with next group tomorrow evening 06/11. If pt continues to relapse she will require more intensive residential tx. Pt instructed to begin making referrals to [facility], [facility] and [facility]. Referrals Mariana Majano MD (PCP/Family)
[2018-06-10 11:26] VITALS: BP 136/82
== END 2018-06-10 11:39 ==
LOC: ERH 05:35
PROVIDERS: Emergency Medicine
DX: F41.9 Anxiety disorder, unspecified (principal)
CPT/HCPCS: 80307; G0463; G0480; J3490

== ENCOUNTER 2018-06-22 05:09 | Emergency (ER) | payer OTHER, MEDICARE ==
--- NOTE | 2018-06-22 05:34 | ED PSYCHIATRIC COMPLAINT ---
History of Present Illness General Chief Complaint: ETOH/Drug Related Complaint Stated Complaint: "BIBA PER EMS ETOH, +SI" Source: patient, old records, EMS Exam Limitations: no limitations Vital Signs & Intake/Output Vital Signs & Intake/Output Vital Signs Date Time Temp Pulse Resp B/P B/P Pulse O2 O2 Flow FiO2 Mean Ox Delivery Rate 06/22 0853 98.6 110 18 156/88 06/22 0520 98 Room Air 06/22 05 98.6 110 18 156/88 97 Room Air Allergies Coded Allergies: No Known Allergies (06/04/18) Reconcile Medications Aspirin (Aspirin*) 81 MG TAB.CHEW 1 TAB PO DAILY HEART HEALTH Atorvastatin Calcium (Lipitor) 40 MG TABLET 1 TAB PO DAILY CHOLESTEROL ( Reported) Escitalopram Oxalate (Lexapro) 20 MG TABLET 1.5 TAB PO DAILY anxiety/ depression Fluticasone/Salmeterol (Advair 250-50 Diskus) 250 MCG-50 MCG/DOSE BLST.W.DEV 1 PUF INH BID COPD (Reported) Gabapentin 600 MG TABLET 2 TAB PO BID ANXIETY Metoprolol Tartrate 25 MG TABLET 1 TAB PO BID SINUS TACHYCARDIA Multivitamin (One Daily Multivitamin) 1 EACH TABLET 1 TAB PO DAILY VITAMIN Naltrexone HCl 50 MG TABLET 50 MG PO DAILY alcohol cravings Quetiapine Fumarate (Seroquel) 50 MG TABLET 50 MG PO DAILY mood Quetiapine Fumarate 100 MG TABLET 300 MG PO AT BEDTIME DEPRESSION Tiotropium [place] (Spiriva) 18 MCG CAP.W.DEV 1 CAP INH DAILY COPD (Reported) Triage Note: 58F RETURNS TO ED 5TH TIME THIS MONTH, LAST VISIT YESTERDAY MORNING FOR ETOH DETOX. REPORTS BINGE DRINKING AND SEEKS DETOX, BUT HAS GOTTEN AGITATED WHEN NOT RECEIVING ATIVAN WHEN PERSONALLY DEMANDED. PT ENDORSES 10+ SHOTS OF VODKA LAST NIGHT AND IS NOW SUICIDAL WITH PLAN TO SHOOT HERSELF DUE TO HAVING CANCER. PT UNSTEADY ON FEET ON ARRIVAL. PREHOSP #22 TO LH NS IVF BOLUS RUNNING. DENIES HI. DENIES HX SEIZURES OR VH/AH. COOPERATIVE ON ARRIVAL AND TEARFUL WHEN DISCUSSING WITH STAFF EVENTS LEADING UP TO RETURN AFTER DISCHARGE YESTERDAY. Triage Nurses Notes Reviewed? yes Onset: Just prior to arrival Duration: hour(s):, constant, continues in ED Timing: recent history Severity: moderate, severe Associated Symptoms: impaired concentration, insomnia, suicidal ideation LMP (ages 10-50): post menopausal : No Patient currently breastfeeds: No HPI: The patient been drinking alcohol heavily with thoughts of suicide by shooting herself with a gun. She reports she does not have a gun. She denies fever chills nausea vomiting diarrhea abdominal pain chest pain shortness of breath headache dysuria rash bleeding homicidal ideation hallucination. (Eugene Garcia MD) Past History Travel History Traveled to [place] past 21 day No Medical History Any Pertinent Medical History? 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 No (Eugene Garcia MD) Review of Systems Review of Systems Constitutional: Reports: no symptoms. EENTM: Reports: no symptoms. Respiratory: Reports: no symptoms. Cardiovascular: Reports: no symptoms. GI: Reports: no symptoms. Genitourinary: Reports: no symptoms. Musculoskeletal: Reports: no symptoms. Skin: Reports: no symptoms. Neurological/Psychological: Reports: see HPI, anxiety, depressed, emotional problems. Hematologic/Endocrine: Reports: no symptoms. Immunologic/Allergic: Reports: no symptoms. All Other Systems: Reviewed and Negative (Eugene Garcia MD) Physical Exam Physical Exam General Appearance: well developed/nourished, alert, awake, anxious, moderate distress Head: atraumatic, normal appearance Eyes: Bilateral: normal appearance, PERRL, EOMI. Ears, Nose, Throat: normal pharynx, normal ENT inspection, hearing grossly normal Neck: normal inspection, supple, full range of motion, no midline tenderness Respiratory: normal breath sounds, chest non-tender, no respiratory distress, quiet respiration, lungs clear Cardiovascular: regular rate/rhythm, normal peripheral pulses, norml femoral pulses equa Gastrointestinal: normal bowel sounds, soft, non-tender, no organomegaly Extremities: normal range of motion, no ligament instability Neurological/Psychiatric: no motor/sensory deficits, awake, agitated, alert, anxious, copywriting intern II-XII nml as tested, oriented x 3 Appearance/Memory/Insight: disheveled, impaired insight Behavoir/Eye Contact/Speech: cooperative, increased rate of speech Thoughts/Hallucinations: no apparent hallucination Skin: intact, normal color, warm/dry SAD PERSONS SAD PERSONS Response Value Age <19 or >45 years? yes 1 Depression/Hopelessness? yes 2 Previous Attempts/Psych Care yes 1 Excessive Ethanol/Drug Use? yes 1 Rational Thinking Loss? yes 2 Single//? yes 1 Social Support? has no support 1 Stated Future Intent? yes 2 Total 11 SAD PERSONS Done? yes (Jose PANIAGUA,Eugene) Progress Differential Diagnosis: drug intoxication, drug overdose, drug withdrawal, electrolyte abnormality, hypoglycemia, IC hem/mass/tumor Plan of Care: Orders Procedure Date/time Status Regular Diet 06/22 B Active ED CRISIS PSYCH CONSULT 06/22 522 Active Continuous Observation Monitor 06/22 521 Active CIWA 06/22 521 Active URINE DRUG SCREEN FOR ER ONLY 06/22 521 Complete ETHANOL 06/22 521 Complete COMPREHENSIVE METABOLIC PANEL 06/22 521 Complete CBC WITHOUT DIFFERENTIAL 06/22 521 Complete Current Medications Sig/John Start time Last Medication Dose Stop Time Status Admin Gabapentin 1,200 MG BID 06/22 2100 UNVr (Neurontin) Budesonide/ 2 PUF BID 06/22 0935 AC 06/22 Formoterol Fumarate 0943 (Symbicort) Aspirin 81 MG DAILY 06/22 900 UNVr 06/22 (Aspirin) 0853 Atorvastatin Calcium 40 MG DAILY 06/22 900 UNVr 06/22 (Lipitor) 0853 Escitalopram Oxalate 30 MG DAILY 06/22 900 UNVr 06/22 (Lexapro) 0853 Metoprolol Tartrate 25 MG BID 06/22 900 UNVr 06/22 (Lopressor) 0853 Multivitamins 1 TAB DAILY 06/22 900 UNVr 06/22 Therapeutic 0853 (Theragran-M Vitamins Tabs) Quetiapine Fumarate 50 MG DAILY 06/22 900 UNVr 06/22 (SEROquel) 0853 Tiotropium [place] 1 PUF DAILY 06/22 09 AC 06/22 (Spiriva) 0853 Laboratory Tests 06/22/18 0540: Urine Opiates Screen < 100, Methadone Screen 77, Barbiturate Screen < 60, Ur Phencyclidine Scrn < 6.00, Amphetamines Screen 141, U Benzodiazepines Scrn < 85, Urine Cocaine Screen < 50, Urine Cannabis Screen < 5.00 06/22/18 0535: Anion Gap 15, Estimated GFR > 60, BUN/Creatinine Ratio 30.0 H, Glucose 147 H, Calcium 8.8, Total Bilirubin 0.3, AST 18, ALT 29, Alkaline Phosphatase 95, Total Protein 6.7, Albumin 4.0, Globulin 2.7, Albumin/Globulin Ratio 1.5, CBC w Diff NO MAN DIFF REQ, RBC 5.15, MCV 77.8 L, MCH 25.6 L, MCHC 32.9 L, RDW 17.5 H, MPV 7.5, Gran % 78.7 H, Lymphocytes % 12.5 L, Monocytes % 7.7, Eosinophils % 0.6, Basophils % 0.5, Absolute Granulocytes 5.3, Absolute Lymphocytes 0.8 L, Absolute Monocytes 0.5, Absolute Eosinophils 0, Absolute Basophils 0, Serum Alcohol 150.0 Hand-Off Endorsed To: Arnaldo Rosenthal MD Endorsed Time: 0700 Pending: consult (Eugene Garcia MD) Comments: Patient has been seen and cleared by fire assistant. Patient will follow-up with IOP. Patient stable for discharge. (Arnaldo Rosenthal MD) Departure Departure Condition: Stable Clinical Impression Primary Impression: Depression with suicidal ideation Secondary Impressions: Alcohol intoxication delirium Referrals: Mariana Majano MD (PCP/Family) Departure Forms: Customer Survey General Discharge Information (Eugene Garcia MD) Departure Disposition: HOME OR SELF CARE Additional Instructions: FOLLOW UP WITH IOP RETURN FOR ANY CONCERNS (Arnaldo Rosenthal MD)
[2018-06-22 05:51] LABS: ABSOLUTE BASOPHIL COUNT 0 /CUMM (0.0-0.2); ABSOLUTE EOSINOPHIL COUNT 0 /CUMM (0.0-0.7); ABSOLUTE GRANULOCYTE CT 5.3 /CUMM (1.4-6.5); ABSOLUTE LYMPH COUNT 0.8 /CUMM (1.2-3.4); ABSOLUTE MONOCYTE COUNT 0.5 /CUMM (0.10-0.60); BASOPHIL % 0.5 % (0.0-2.0); EOSINOPHIL % 0.6 % (0-5); GRANULOCYTE % 78.7 % (42.2-75.2); HEMATOCRIT 40.1 % (37-47); MEAN CORPUSCULAR HGB 25.6 PG (27.0-31.0); MEAN CORPUSCULAR HGB CONC 32.9 G/DL (33.0-37.0); MEAN CORPUSCULAR VOLUME 77.8 FL (81.0-99.0); MEAN PLATELET VOLUME 7.5 FL (7.4-10.4); PLATELET COUNT 316 /CUMM (130-400); RBC DISTRIBUTION WIDTH 17.5 % (11.5-14.5); RED BLOOD CELL CT 5.15 /CUMM (4.20-5.40)
[2018-06-22 05:55] LABS: WHITE BLOOD CELL COUNT 6.8 /CUMM (4.8-10.8)
--- NOTE | 2018-06-22 13:17 | ED PSYCH CRISIS CONSULTATION ---
Crisis Consult Basic Assessment Date of Consult: 06/22/18 Responsible Person/Accompanied By: Patient Insurance Authorization: Insurance #1: Insurance name: MEDICARE A Phone number: Policy number: [id number] Group number: Authorization number: ED Provider: Patient's ED Provider: Eugene Garcia MD Primary Care Physician: Patient's PCP: Mariana Majano MD PCP's Current Psychiatrist: none Chief Complaint: ETOH/Drug Related Complaint Patient's Quote: "I was having a bad anxiety attack from withdrawal" Present Illness: Patient is a retired 58 y/o female presenting to the ED for the 9th time since January 2018. Patient arrived at the ED on 06/21/2018 requesting ETOH detox and told staff that she wanted to be admitted to [facility]. After a few hours, patient requested to leave and took a cab home. Patient denied any SI/HI/plan/intent at that point. Patient arrived back to the ED via ambulance in the labourers of 06/22 with a BAL of 150. Patient initially told staff that she had SI with a plan to shoot herself due to having cancer, but told this mortgage or loan underwriter that she made that statement because she knew "it would get me in here". Patient admitted to drinking 10+ nips of vodka last night and her last drink was at approximately 1: 00AM. She then became extremeley anxious about going into withdrawal and called an ambulance. Patient denies any SI/HI/plan/intent currently. No previous suicide attempts reported. No history of abusing other substances besides ETOH. Patient denies being suicidal at any point, but does admit that when she drinks she sometimes makes impulsive statements that she does not mean. Prior to 2017, patient was sober for 11 days and receiving treatment at [facility] since 05/26/2018. Patient reports attending appointments and AA regularly. She has a long history of inpatient and residential treatment. Patient has an [facility] appointment tomorrow, 06/23/2018, that she has agreed to attend. Patient endorses severe anxiety when she drinks but is otherwise controlled by medications. She also endorses symptoms of depression including depressed mood, lack of interest/concentration, and lack of motivation. She reports that her baseline mood is always depressed, averaging to be 5 out of 10. Patient reports that her mother on 03/31/2018, and subsequently her depression and ETOH abuse worsened. Patient is retired and lives in [place] with her 41 y/o daughter, who she considers to be a healthy support. Patient was diagnosed with stage 4 brain and lung cancer in 2013 and is now in remission. However, patient reports feeling extremely anxious when thinking about her cancer diagnosis. Patient denies symptoms of PTSD. Patient denies A/Vh. CSSRS completed and placed in patient's chart. Case reviewed with Dr. Cabral and the recommendation is for patient is to continue attending [facility], engage in AA , and stop drinking alcohol. Patient is in agreement with this plan. Patient's Address: [address] [place] [address] Other Phone Number: Who Do You Live With? Daughter Family/Informants Interviewed: Patient's daughter, Kimberley. Kimberley reports that patient was sober for 10 days and then decided to drink. Kimberley came home and found patient intoxicated and left the patient home alone. Per Kimberley, patient has been attending [facility]. Allergies - Coded Allergies: No Known Allergies (06/04/18) Current Medications - Scheduled Medications Aspirin (Aspirin*) 81 MG TAB.CHEW 1 TAB PO DAILY HEART HEALTH #30 TAB Prescribed by Lori Murphy on 06/26/16 Atorvastatin Calcium (Lipitor) 40 MG TABLET 1 TAB PO DAILY CHOLESTEROL ( Reported) Entered as Reported by Lindsey Granda on 02/26/181913 Escitalopram Oxalate (Lexapro) 20 MG TABLET 1.5 TAB PO DAILY anxiety/ depression #45 TAB Prescribed by Lee Foote MD on 05/19/18 Fluticasone/Salmeterol (Advair 250-50 Diskus) 250 MCG-50 MCG/DOSE BLST.W.DEV 1 PUF INH BID COPD (Reported) Entered as Reported by Lindsey Granda on 02/26/181917 Gabapentin 600 MG TABLET 2 TAB PO BID ANXIETY #120 TAB Prescribed by Lee Foote MD on 05/19/18 Metoprolol Tartrate 25 MG TABLET 1 TAB PO BID SINUS TACHYCARDIA #30 TAB Prescribed by Lior Chopra MD on 05/09/18 Multivitamin (One Daily Multivitamin) 1 EACH TABLET 1 TAB PO DAILY VITAMIN #30 TAB Prescribed by Lior Chopra MD on 05/09/18 Naltrexone HCl 50 MG TABLET 50 MG PO DAILY alcohol cravings #14 TAB Prescribed by Lee Foote MD on 05/19/18 Quetiapine Fumarate (Seroquel) 50 MG TABLET 50 MG PO DAILY mood #15 TAB Prescribed by Lee Foote MD on 05/19/18 Quetiapine Fumarate 100 MG TABLET 300 MG PO AT BEDTIME DEPRESSION #30 TAB Prescribed by Lee Foote MD on 05/19/18 Tiotropium [place] (Spiriva) 18 MCG CAP.W.DEV 1 CAP INH DAILY COPD (Reported) Entered as Reported by Lindsey Granda on 02/26/18 191 Laboratory Results: Laboratory Tests 06/22/18 0540: Urine Opiates Screen < 100, Methadone Screen 77, Barbiturate Screen < 60, Ur Phencyclidine Scrn < 6.00, Amphetamines Screen 141, U Benzodiazepines Scrn < 85, Urine Cocaine Screen < 50, Urine Cannabis Screen < 5.00 06/22/18 0535: Anion Gap 15, Estimated GFR > 60, BUN/Creatinine Ratio 30.0 H, Glucose 147 H, Calcium 8.8, Total Bilirubin 0.3, AST 18, ALT 29, Alkaline Phosphatase 95, Total Protein 6.7, Albumin 4.0, Globulin 2.7, Albumin/Globulin Ratio 1.5, CBC w Diff NO MAN DIFF REQ, RBC 5.15, MCV 77.8 L, MCH 25.6 L, MCHC 32.9 L, RDW 17.5 H, MPV 7.5, Gran % 78.7 H, Lymphocytes % 12.5 L, Monocytes % 7.7, Eosinophils % 0.6, Basophils % 0.5, Absolute Granulocytes 5.3, Absolute Lymphocytes 0.8 L, Absolute Monocytes 0.5, Absolute Eosinophils 0, Absolute Basophils 0, Serum Alcohol 150.0 Past History Past Medical History Any Pertinent Medical History? 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 Physical Limitations (Interventions): cancer / COPD Psychiatric Treatment History Psych Treatment Psychiatric Treatment Yes Inpatient Treatment Yes Outpatient Treatment Yes Location of Treatment [facility], [facility] Reason for Treatment etoh abuse, depression, anxiety Dates of Treatment Patient D/c from [facility] on 05/19/18, currently attending IOP Response to Treatment Poor- patient has relapsed 3x since starting IOP Diagnosis by History: depression etoh Substance Use/Abuse History Drug Use/Abuse Substances Used/Abused Yes (Alcohol) Substance Used/Abused Alcohol First Use 24 y/o Last Used 06/22/2018 How much used/taken 10+ nips of vodka How often daily with intermittent periods of sobriety For how long years Route of use ingest Substance Abuse Treatment Substance Abuse Treatment Past Substance Abuse TX Yes Inpatient Treatment Yes Outpatient Treatment Yes Location of Treatment [facility], [facility], [facility], [facility] Reason for Treatment etoh Dates of Treatment several inpatient/ IOP since Response to Treatment poor Current Mental Status Mental Status Orientation: Person, Place, Situation Affect: Anxious, WNL Speech: WNL Neuro-vegetative: WNL Appearance Appearance- Dress/Hygiene: appropriate Behaviors Thought Process: WNL Thought Content: WNL Memory: WNL Insight: WNL SI/HI Risk Assessment Past Suicidal Ideation/Attempts No (denied but made statements) Current Suicidal Ideation/Att No Past Homicidal Ideation/Att: No Current Homicidal Ideation/Attempts No Degree of Intent: None Danger To: Self Gravely Disabled: Lack of Insight, Poor Impulse Control, Poor Judgment Risk Factors: access to lethal means, chronic/serious med cond., high anxiety/ distress, SA/MH hospitalized, substance abuse, poor impulse control Lethality Ratin PTSD Checklist PTSD Done? patient declined ED Management Sitter: Yes Restraints: Yes DSM5/PS Stressors/Medical Prob Diagnosis' (DSM 5, Stressors, Medical): F32.9 Unspecfied Depressive Disorder F10.20 Alcohol Use Disorder, Severe Lung and brain cancer- in remission COPD Current GAF: 35 Comments: Patient is disappointed in herself for relapsing. Patient agrees to follow continue attending IOP program and look into RTC. Departure Disposition Psych Medical Clearance Date: 06/22/18 Medically Cleared at: 1215 Time Started: 1215 Time Ended: 1235 Psychiatrist Consulted: Dr. Cabral Date Disposition Established: 06/22/18 Time Disposition Established: 1330 Plan for Disposition - Modality: IOP Facility: [facility] Follow-up Appt Date: 06/23/18 Follow-Up Appt Time: 183 Rationale for Disposition: Patient agreed to continue attending [facility] IOP program and engage in AA. Patient has agreed to attend next IOP group tomorrow evening 06/23. Patient demonstrates the ability to reach out for help when necessary and does not meet criteria for inpatient LOC at this time. Referrals Mariana Majano MD (PCP/Family)
[2018-06-22 14:27] VITALS: BP 141/76
== END 2018-06-22 14:47 ==
LOC: ERH 05:09
PROVIDERS: Emergency Medicine
DX: F32.9 Major depressive disorder, single episode, unspecified (principal); R45.851 Suicidal ideations; F10.121 Alcohol abuse with intoxication delirium; I10 Essential (primary) hypertension; J44.9 Chronic obstructive pulmonary disease, unspecified
CPT/HCPCS: 80307; G0463; G0480; J3490

== ENCOUNTER 2018-08-06 06:55 | Emergency (ER) | payer OTHER, MEDICARE ==
[~2018-08-06] VITALS: Ht 162.6 cm; Wt 68.0 kg
--- NOTE | 2018-08-06 08:00 | ED GENERAL ADULT ---
History of Present Illness General Chief Complaint: ETOH/Drug Related Complaint Stated Complaint: BIBA DETOX Source: patient Exam Limitations: no limitations Vital Signs & Intake/Output Vital Signs & Intake/Output Vital Signs Date Time Temp Pulse Resp B/P B/P Pulse O2 O2 Flow FiO2 Mean Ox Delivery Rate 08/06 0851 102/72 08/06 0824 96/67 08/06 0821 97.8 93 20 93/65 96 Room Air 08/06 0758 93 20 74/48 93 Room Air 08/06 0726 97.5 78 18 122/78 97 Allergies Coded Allergies: No Known Allergies (06/04/18) Reconcile Medications Aspirin (Aspirin*) 81 MG TAB.CHEW 1 TAB PO DAILY HEART HEALTH Atorvastatin Calcium (Lipitor) 40 MG TABLET 1 TAB PO DAILY CHOLESTEROL ( Reported) Escitalopram Oxalate (Lexapro) 20 MG TABLET 1.5 TAB PO DAILY anxiety/ depression Fluticasone/Salmeterol (Advair 250-50 Diskus) 250 MCG-50 MCG/DOSE BLST.W.DEV 1 PUF INH BID COPD (Reported) Gabapentin 600 MG TABLET 2 TAB PO BID ANXIETY Metoprolol Tartrate 25 MG TABLET 1 TAB PO BID SINUS TACHYCARDIA Multivitamin (One Daily Multivitamin) 1 EACH TABLET 1 TAB PO DAILY VITAMIN Naltrexone HCl 50 MG TABLET 50 MG PO DAILY alcohol cravings Quetiapine Fumarate (Seroquel) 50 MG TABLET 50 MG PO DAILY mood Quetiapine Fumarate 100 MG TABLET 300 MG PO AT BEDTIME DEPRESSION Tiotropium [place] (Spiriva) 18 MCG CAP.W.DEV 1 CAP INH DAILY COPD (Reported) Triage Note: PT BIBA FROM HOME. STATES SHE CALLED 911 BECAUSE SHE WAS DRUNK AND WANTED DETOX BUT SHE HAS SINCE CHANGED HER MIND AND DEMANDS A BREATHALYZER. TEST WAS .020. PT IS REFUSING TO CHANGE AND WANTS TO GO HOME Triage Nurses Notes Reviewed? yes HPI: Patient presents after drinking alcohol. Denies any complaints. Patient is sober and feels that she can go home. Negative for suicidal or homicidal ideations but Past History Travel History Traveled to [place] past 21 day No Medical History Any Pertinent Medical History? 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 No Review of Systems Review of Systems Constitutional: Reports: no symptoms. EENTM: Reports: no symptoms. Respiratory: Reports: no symptoms. Cardiovascular: Reports: no symptoms. GI: Reports: no symptoms. Genitourinary: Reports: no symptoms. Musculoskeletal: Reports: no symptoms. Skin: Reports: no symptoms. Neurological/Psychological: Reports: no symptoms. Hematologic/Endocrine: Reports: no symptoms. Immunologic/Allergic: Reports: no symptoms. All Other Systems: Reviewed and Negative Physical Exam Physical Exam General Appearance: well developed/nourished, no apparent distress, alert, comfortable Neck: normal inspection Respiratory: normal breath sounds, lungs clear Cardiovascular: regular rate/rhythm Gastrointestinal: soft, non-tender Neurologic/Psych: no motor/sensory deficits, oriented x 3 Comments: Vomitus on his shirt. Core Measures ACS in differential dx? No CVA/TIA Diagnosis: No Sepsis Present: No Sepsis Focused Exam Completed? No Progress Differential Diagnoses I considered the following diagnoses in my evaluation of the patient: Intoxication versus altered mental status. Plan of Care: Orders Procedure Date/time Status Saline Lock 08/06 758 Active URINE DRUG SCREEN FOR ER ONLY 08/06 758 Active TROPONIN LEVEL 08/06 758 Complete PARTIAL THROMBOPLASTIN TIME 08/06 758 Complete PROTHROMBIN TIME 08/06 758 Complete MAGNESIUM 08/06 758 Complete ETHANOL 08/06 758 Complete COMPREHENSIVE METABOLIC PANEL 08/06 758 Complete CBC WITHOUT DIFFERENTIAL 08/06 758 Complete EKG 08/06 758 Active Current Medications Sig/John Start time Last Medication Dose Stop Time Status Admin Magnesium Oxide 400 MG ONE ONE 08/06 915 AC (Mag-Ox) 08/06 916 Potassium Chloride 20 MEQ ONCE ONE 08/06 915 AC (Klor) 08/06 916 Laboratory Tests 08/06/18 0806: Anion Gap 7, Estimated GFR > 60, BUN/Creatinine Ratio 21.7, Glucose 107 H, Calcium 6.7 L, Magnesium 1.2 L, Total Bilirubin 0.3, AST 14, ALT 26, Alkaline Phosphatase 52, Troponin I < 0.01, Total Protein 4.8 L, Albumin 2.6 L, Globulin 2.2, Albumin/Globulin Ratio 1.2, PT 11.7, INR 1.07, APTT 35, CBC w Diff NO MAN DIFF REQ, RBC 4.46, MCV 80.2 L, MCH 26.6 L, MCHC 33.2, RDW 16.4 H, MPV 7.6, Gran % 84.4 H, Lymphocytes % 9.1 L, Monocytes % 4.8, Eosinophils % 0.1, Basophils % 1.6, Absolute Granulocytes 7.3 H, Absolute Lymphocytes 0.8 L, Absolute Monocytes 0.4, Absolute Eosinophils 0, Absolute Basophils 0.1, Serum Alcohol 36.0 Blood alcohol below legal limit. Patient feels that she is sober enough to go home. Return precautions given. Initial ED EKG: normal intervals, normal QRS complex, normal sinus rhythm, nonspecific ST T wave chg Comments: Patient was being discharged she stood up to leave had a syncopal episode that says she felt twitchy. Patient was placed in room for further evaluation. Departure Departure Disposition: HOME OR SELF CARE Condition: Stable Clinical Impression Primary Impression: ETOH abuse Secondary Impressions: Hypokalemia, Hypomagnesemia Referrals: Mariana Majano MD (PCP/Family) Departure Forms: Customer Survey General Discharge Information Critical Care Note Critical Care Note Critical Care Time: non-applicable
[2018-08-06 08:21] LABS: ABSOLUTE BASOPHIL COUNT 0.1 /CUMM (0.0-0.2); ABSOLUTE EOSINOPHIL COUNT 0 /CUMM (0.0-0.7); ABSOLUTE GRANULOCYTE CT 7.3 /CUMM (1.4-6.5); ABSOLUTE LYMPH COUNT 0.8 /CUMM (1.2-3.4); ABSOLUTE MONOCYTE COUNT 0.4 /CUMM (0.10-0.60); BASOPHIL % 1.6 % (0.0-2.0); EOSINOPHIL % 0.1 % (0-5); HEMATOCRIT 35.8 % (37-47); MEAN CORPUSCULAR HGB 26.6 PG (27.0-31.0); MEAN CORPUSCULAR HGB CONC 33.2 G/DL (33.0-37.0); MEAN CORPUSCULAR VOLUME 80.2 FL (81.0-99.0); MEAN PLATELET VOLUME 7.6 FL (7.4-10.4); RBC DISTRIBUTION WIDTH 16.4 % (11.5-14.5); RED BLOOD CELL CT 4.46 /CUMM (4.20-5.40); WHITE BLOOD CELL COUNT 8.6 /CUMM (4.8-10.8)
[2018-08-06 08:25] LABS: PT 11.7 SEC (9.4-12.5); PTT 35 SEC (25-37)
[2018-08-06 08:33] LABS: GRANULOCYTE % 84.4 % (42.2-75.2); PLATELET COUNT 305 /CUMM (130-400)
[2018-08-06 10:20] VITALS: BP 112/70
== END 2018-08-06 10:23 ==
LOC: ERH 06:55
PROVIDERS: Emergency Medicine
DX: F10.10 Alcohol abuse, uncomplicated (principal); E87.6 Hypokalemia; E83.42 Hypomagnesemia; I10 Essential (primary) hypertension; I25.10 Atherosclerotic heart disease of native coronary artery without angina pectoris; J44.9 Chronic obstructive pulmonary disease, unspecified; Z87.891 Personal history of nicotine dependence
CPT/HCPCS: 80307; 93005; 93010; 96360; G0480

== ENCOUNTER 2018-08-08 10:53 | Emergency (ER) | payer OTHER, MEDICARE ==
[~2018-08-08] VITALS: Ht 162.6 cm; Wt 68.0 kg
[2018-08-08] MEDS ORDERED: TYLENOL325 M1 PO (12:30)
[2018-08-08] MEDS ORDERED: TYLENOL WITH C1 EAC1 PO (12:31)
[2018-08-08 13:33] LABS: ABSOLUTE BASOPHIL COUNT 0 /CUMM (0.0-0.2); ABSOLUTE EOSINOPHIL COUNT 0.1 /CUMM (0.0-0.7); ABSOLUTE GRANULOCYTE CT 2.7 /CUMM (1.4-6.5); ABSOLUTE LYMPH COUNT 0.7 /CUMM (1.2-3.4); ABSOLUTE MONOCYTE COUNT 0.7 /CUMM (0.10-0.60); BASOPHIL % 0.7 % (0.0-2.0); EOSINOPHIL % 1.6 % (0-5); GRANULOCYTE % 64.6 % (42.2-75.2); MEAN CORPUSCULAR HGB 26.7 PG (27.0-31.0); MEAN CORPUSCULAR HGB CONC 33.1 G/DL (33.0-37.0); MEAN CORPUSCULAR VOLUME 80.7 FL (81.0-99.0); PLATELET COUNT 288 /CUMM (130-400); RBC DISTRIBUTION WIDTH 16.2 % (11.5-14.5); RED BLOOD CELL CT 4.34 /CUMM (4.20-5.40)
[2018-08-08 13:41] LABS: WHITE BLOOD CELL COUNT 4.2 /CUMM (4.8-10.8)
[2018-08-08 13:56] VITALS: BP 120/70
--- NOTE | 2018-08-08 15:50 | ED PSYCHIATRIC COMPLAINT ---
History of Present Illness General Chief Complaint: Psychiatric Related Complaint Stated Complaint: BIBA,ANXIETY Source: patient Exam Limitations: no limitations Vital Signs & Intake/Output Vital Signs & Intake/Output Vital Signs Date Time Temp Pulse Resp B/P B/P Pulse O2 O2 Flow FiO2 Mean Ox Delivery Rate 08/08 1356 98.1 135 18 120/70 97 08/08 1235 Room Air 08/08 1059 98.3 130 18 92/67 93 Room Air Allergies Coded Allergies: No Known Allergies (06/04/18) Reconcile Medications Aspirin (Aspirin*) 81 MG TAB.CHEW 1 TAB PO DAILY HEART HEALTH Atorvastatin Calcium (Lipitor) 40 MG TABLET 1 TAB PO DAILY CHOLESTEROL ( Reported) Escitalopram Oxalate (Lexapro) 20 MG TABLET 1.5 TAB PO DAILY anxiety/ depression Fluticasone/Salmeterol (Advair 250-50 Diskus) 250 MCG-50 MCG/DOSE BLST.W.DEV 1 PUF INH BID COPD (Reported) Gabapentin 600 MG TABLET 2 TAB PO BID ANXIETY Metoprolol Tartrate 25 MG TABLET 1 TAB PO BID SINUS TACHYCARDIA Multivitamin (One Daily Multivitamin) 1 EACH TABLET 1 TAB PO DAILY VITAMIN Naltrexone HCl 50 MG TABLET 50 MG PO DAILY alcohol cravings Quetiapine Fumarate (Seroquel) 50 MG TABLET 50 MG PO DAILY mood Quetiapine Fumarate 100 MG TABLET 300 MG PO AT BEDTIME DEPRESSION Tiotropium [place] (Spiriva) 18 MCG CAP.W.DEV 1 CAP INH DAILY COPD (Reported) Triage Note: PT BIBA FROM ANXIETY PER EMS THE ONLY THING THAT HELPED WAS TO PUT NC IN HER NOSE ON RA. PT STATES IT HELPED HER GREATLY. PT STATES SHE IS REALY HERE FOR ETOH DETOX AND NEEDS TO BE ADMITED TO [facility]. PT STATES SHE WENT HOME AND DRANK AGAIN, Triage Nurses Notes Reviewed? yes HPI: 58-year-old white female with multiple visits to this emergency department for anxiety and alcohol abuse presents asking for assistance with detox and requesting admission to the psychiatric unit. Patient denies any active suicidal ideation, A/V hallucinations, or delusional thinking. She admits to drinking 6-7 "sips" of vodka daily. She denies any previous seizures, ICU admissions, or DTs. She has been eating normally. Past History Travel History Traveled to [place] past 21 day No Medical History Any Pertinent Medical History? 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 No Review of Systems Review of Systems Constitutional: Reports: see HPI, weakness. EENTM: Denies: blurred vision, double vision, visual changes, throat pain. Respiratory: Denies: cough, hemoptysis, orthopnea, short of breath, sputum production, stridor, wheezing. Cardiovascular: Denies: chest pain, edema, orthopena, palpitations, peripheral edema, syncope. GI: Denies: abdominal pain, bloating, constipation, diarrhea, distention, bowel incontinence, nausea, vomiting. Musculoskeletal: Denies: back pain, muscle pain, muscle stiffness, neck pain. Neurological/Psychological: Denies: see HPI. All Other Systems: Reviewed and Negative Physical Exam Physical Exam General Appearance: well developed/nourished, no apparent distress, alert, awake , anxious Head: atraumatic, normal appearance Eyes: Bilateral: PERRL, EOMI. Ears, Nose, Throat: normal pharynx, normal ENT inspection, hearing grossly normal Neck: normal inspection, supple Respiratory: normal breath sounds, chest non-tender, no respiratory distress, quiet respiration, lungs clear Cardiovascular: tachycardia Gastrointestinal: soft, non-tender, no organomegaly Extremities: normal range of motion Neurological/Psychiatric: awake, alert, anxious Appearance/Memory/Insight: appropriate appearance Behavoir/Eye Contact/Speech: cooperative, normal speech, good eye contact Thoughts/Hallucinations: normal thought pattern, no apparent hallucination Skin: intact, normal color, warm/dry SAD PERSONS Done? patient not suicidal Progress Differential Diagnosis: drug intoxication, drug withdrawal, electrolyte abnormality Plan of Care: Orders Procedure Date/time Status Regular Diet 08/08 D Active ED CRISIS PSYCH CONSULT 08/08 1349 Active Patient Safety Monitor 08/08 130 Active URINE DRUGS OF ABUSE 08/08 130 Complete ETHANOL 08/08 130 Complete COMPREHENSIVE METABOLIC PANEL 08/08 1309 Complete CBC WITHOUT DIFFERENTIAL 08/08 1309 Complete Laboratory Tests 08/08/18 1337: Urine Opiates Screen < 100, Methadone Screen 95, Barbiturate Screen < 60, Ur Phencyclidine Scrn < 6.00, Amphetamines Screen 163, U Benzodiazepines Scrn 102, Urine Cocaine Screen < 50, Urine Cannabis Screen < 5.00 08/08/18 1314: Anion Gap 9, Estimated GFR > 60, BUN/Creatinine Ratio 30.0 H, Glucose 105 H, Calcium 9.5, Total Bilirubin 0.3, AST 25, ALT 32, Alkaline Phosphatase 100, Total Protein 6.6, Albumin 4.2, Globulin 2.4, Albumin/Globulin Ratio 1.8, CBC w Diff NO MAN DIFF REQ, RBC 4.34, MCV 80.7 L, MCH 26.7 L, MCHC 33.1, RDW 16.2 H , MPV 8.0, Gran % 64.6, Lymphocytes % 16.7 L, Monocytes % 16.4 H, Eosinophils % 1.6, Basophils % 0.7, Absolute Granulocytes 2.7, Absolute Lymphocytes 0.7 L, Absolute Monocytes 0.7 H, Absolute Eosinophils 0.1, Absolute Basophils 0, Serum Alcohol 32.0 Comments: Patient was seen by the crisis team who knows her well. She was offered outpatient detox but declines it at this time. She does not want inpatient hospitalization and is stable for discharge. There is no signs of dangerousness. Departure Departure Time of Disposition: 1547 Disposition: HOME OR SELF CARE Condition: Stable Clinical Impression Primary Impression: Chronic alcohol abuse Secondary Impressions: Anxiety Referrals: Mariana Majano MD (PCP/Family) Additional Instructions: Please consider outpatient alcohol detoxification. Follow-up with your primary care providers as scheduled Departure Forms: Customer Survey General Discharge Information
--- NOTE | 2018-08-08 17:24 | ED PSYCH CRISIS CONSULTATION ---
Crisis Consult Basic Assessment Date of Consult: 08/08/18 Responsible Person/Accompanied By: self/biba Insurance Authorization: Insurance #1: Insurance name: MEDICARE A Phone number: Policy number: [id number] Group number: Authorization number: ED Provider: Patient's ED Provider: Suma Perry MD Primary Care Physician: Patient's PCP: Mariana Majano MD PCP's Current Psychiatrist: Bhavna MUSA [facility] [phone] Chief Complaint: Psychiatric Related Complaint Patient's Quote: I feel fine now. I want to go home. Present Illness: Pt is a 58 yo female biba to [place] [facility] this afternoon reporting etoh use and anxiety. This is pt's 2x presentation today for etoh and 3rd past 3 days. Pt reports drinking more etoh when she got home following ED visit earlier this morning. PT BAL:.032 this afternoon. Pt reports feeling sad and dissappointed with her self for drinking and struggles at times to resist urge to drink. Pt reports drinking a sleeve (10 nips) about 2x/wk. Pt reports occasional thoughts to o/d on seroquel and not wake-up but reports no plan or intent. Pt acknowledges pattern of etoh and anxiety triggering trip to ED but once seen feels calmer and wants to go home. Pt states "I feel fine now. I don't want to Kill myself". Pt acknowledges that she may be slowly killing herself due to etoh and it may negatively effect her lung cancer. Pt has small nodule on left lung and has a followup appt in 3 months. Pt brain cancer is in remission. Pt denies HI/AH/VH. Pt doesn't have a gun. Pt is future orientented with plans to attend Dr appointments next week; look with her daughter for a new apartment; engaging in upcoming groups at [facility] and settlement from her mother's estate once it goes to probabte. C-SSRS completed. Pt has had several etoh related [place] [facility] experiences past two yrs including multiple medical detoxes and an admission [facility] in May 2018 for depression following [facility]oh detox. Following [facility] discharge pt enrolled with [facility] but discharged due to multiple relapses. IOP recommended pt refer to inpatient rehab programs but pt not willing to go. Pt reports several detox episodes since the but unwilling to go again. Pt states she knows what to do and needs to statrt going again to meetings. Pt resides with her 41 yo daughter who pt reports is upset and frustrated with her chronic etoh use. Pt presents as cooperative, pleasant, OX3 and thoughtful regarding her problems with maintaining sobriety. Case reviewed with Dr Santiago. Recommendation for inpatient rehab programs but if pt unwilling she should maintain tx at [facility]. Pt doesn't want to pursue rehab and plans to continue at [facility] with next appt 08/13 with Callie Mercer. Pt will be picked up by her sponsor Marylu Shen with plans to go to AA meetings this weekend. Patient's Address: [address] [place] [address] Other Phone Number: Who Do You Live With? Daughter Family/Informants Interviewed: voice message left for pt daughter Kimberley and Callie Mercer therapist at [facility] [phone]. Allergies - Coded Allergies: No Known Allergies (06/04/18) Current Medications - Scheduled Medications Aspirin (Aspirin*) 81 MG TAB.CHEW 1 TAB PO DAILY HEART HEALTH #30 TAB Prescribed by Lori Murphy on 06/26/16 Atorvastatin Calcium (Lipitor) 40 MG TABLET 1 TAB PO DAILY CHOLESTEROL ( Reported) Entered as Reported by Lindsey Granda on 02/26/181913 Escitalopram Oxalate (Lexapro) 20 MG TABLET 1.5 TAB PO DAILY anxiety/ depression #45 TAB Prescribed by Lee Foote MD on 05/19/18 Fluticasone/Salmeterol (Advair 250-50 Diskus) 250 MCG-50 MCG/DOSE BLST.W.DEV 1 PUF INH BID COPD (Reported) Entered as Reported by Lindsey Granda on 02/26/181917 Gabapentin 600 MG TABLET 2 TAB PO BID ANXIETY #120 TAB Prescribed by Lee Foote MD on 05/19/18 Metoprolol Tartrate 25 MG TABLET 1 TAB PO BID SINUS TACHYCARDIA #30 TAB Prescribed by Lior Chopra MD on 05/09/18 Multivitamin (One Daily Multivitamin) 1 EACH TABLET 1 TAB PO DAILY VITAMIN #30 TAB Prescribed by Lior Chopra MD on 06/08/18 Naltrexone HCl 50 MG TABLET 50 MG PO DAILY alcohol cravings #14 TAB Prescribed by Lee Foote MD on 05/19/18 Quetiapine Fumarate (Seroquel) 50 MG TABLET 50 MG PO DAILY mood #15 TAB Prescribed by Lee Foote MD on 05/19/18 Quetiapine Fumarate 100 MG TABLET 300 MG PO AT BEDTIME DEPRESSION #30 TAB Prescribed by Lee Foote MD on 05/19/18 Tiotropium [place] (Spiriva) 18 MCG CAP.W.DEV 1 CAP INH DAILY COPD (Reported) Entered as Reported by Lindsey Granda on 02/26/18 1918 Laboratory Results: Laboratory Tests 08/08/18 1337: Urine Opiates Screen < 100, Methadone Screen 95, Barbiturate Screen < 60, Ur Phencyclidine Scrn < 6.00, Amphetamines Screen 163, U Benzodiazepines Scrn 102, Urine Cocaine Screen < 50, Urine Cannabis Screen < 5.00 08/08/18 1314: Anion Gap 9, Estimated GFR > 60, BUN/Creatinine Ratio 30.0 H, Glucose 105 H, Calcium 9.5, Total Bilirubin 0.3, AST 25, ALT 32, Alkaline Phosphatase 100, Total Protein 6.6, Albumin 4.2, Globulin 2.4, Albumin/Globulin Ratio 1.8, CBC w Diff NO MAN DIFF REQ, RBC 4.34, MCV 80.7 L, MCH 26.7 L, MCHC 33.1, RDW 16.2 H , MPV 8.0, Gran % 64.6, Lymphocytes % 16.7 L, Monocytes % 16.4 H, Eosinophils % 1.6, Basophils % 0.7, Absolute Granulocytes 2.7, Absolute Lymphocytes 0.7 L, Absolute Monocytes 0.7 H, Absolute Eosinophils 0.1, Absolute Basophils 0, Serum Alcohol 32.0 Past History Past Medical History Neurological: NONE EENT: NONE Cardiovascular: CAD, hypertension, hyperlipidemia Respiratory: COPD, emphysema, LUNG CANCER Gastrointestinal: NONE Hepatic: NONE Renal: NONE Musculoskeletal: NONE Psychiatric: alcohol dependence, depression Endocrine: PARTIAL THYROIDECTOMY Blood Disorders: NONE Cancer(s): head/neck cancer, lung cancer, 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 Reason for Treatment etoh abuse depression/anxiety Dates of Treatment pt inpatient May 2018; currently receiving outpatient at [facility] Response to Treatment pt is enaged with tx at [facility] but continues to relapse with etoh 2-3x/wk Diagnosis by History: depression etoh Substance Use/Abuse History Drug Use/Abuse Substances Used/Abused Yes Substance Used/Abused Alcohol Last Used today How much used/taken 10 nips How often 2-3x/wk For how long past 30 yrs with extensive periods of sobriety Substance Abuse Treatment Substance Abuse Treatment Past Substance Abuse TX Yes Inpatient Treatment Yes Outpatient Treatment Yes Location of Treatment [place]; [facility]; [place] Reason for Treatment etoh withdrawal/detox Dates of Treatment last medical detox May 2018 Response to Treatment pt has relapsed several times since last inpatient tx May 2018. Pt is resistant to go to inpatient rehab Comments: pt reports reaching out to her sponsor Marylu Juárez for support to start going back to AA meetings Current Mental Status Mental Status Orientation: Person, Place, Situation Affect: Anxious Speech: WNL Neuro-vegetative: Helpless, Sleep Disturbance Appearance Appearance- Dress/Hygiene: hospital scrubs; disheveled; calm, engaged, good eye contact Behaviors Thought Process: WNL Thought Content: WNL Memory: WNL Insight: Fair SI/HI Risk Assessment Past Suicidal Ideation/Attempts Yes Current Suicidal Ideation/Att No Past Homicidal Ideation/Att: No Current Homicidal Ideation/Attempts No Degree of Intent: Thoughts/No Intent Danger To: Self Gravely Disabled: Poor Impulse Control, Poor Judgment Risk Factors: chronic/serious med cond., high anxiety/distress, SA/MH hospitalized, substance abuse, poor impulse control Lethality Ratin PTSD Checklist PTSD Done? patient declined ED Management Sitter: Yes Restraints: No DSM5/PS Stressors/Medical Prob Diagnosis' (DSM 5, Stressors, Medical): alcohol use d/o F10.20 unspecified depression F32.9 bereavement (mother March 2018) housing (needs to find new apartment) breat cancer treatment Current GAF: 40 Comments: pt denies SI/HI. Pt frustrated with self for continued relapse. Reistant to inpatient treatment. Feels Care is helpful. Reports plan to resume AA meetings and increase contact with sponsor. Departure Disposition Psych Medical Clearance Date: 08/08/18 Medically Cleared at: 1500 Time Started: 1500 Time Ended: 1545 Psychiatrist Consulted: Ajay Santiago MD Date Disposition Established: 08/08/18 Time Disposition Established: 1600 Plan for Disposition - Modality: Outpatient Facility: [facility] Follow-up Appt Date: 08/13/18 Contact: Callie Mercer Rationale for Disposition: continue dual outpatient treatment with provider as pt is unwilling to engage in inpatient rehab services at this time. Referrals aMriana Majano MD (PCP/Family)
== END 2018-08-08 16:15 ==
LOC: ERH 10:53
PROVIDERS: Physician Assistant
DX: F41.9 Anxiety disorder, unspecified (principal); I10 Essential (primary) hypertension; J44.9 Chronic obstructive pulmonary disease, unspecified; Z87.891 Personal history of nicotine dependence; Z79.82 Long term (current) use of aspirin
CPT/HCPCS: 80307; G0463; G0480; J3101